=== PATIENT | male | born 1970 | race Caucasian/White ===

== ENCOUNTER 2022-01-07 18:11 | Emergency (ER) | payer MEDICARE, MEDICAID, SELFPAY ==
--- NOTE | ~2022-01-07 | CT_ITS ---
EXAMINATION: CT abdomen pelvis wo con DATE: 01/07/2022 20:58 INDICATION: hematuria TECHNIQUE: Computed tomography (CT) of the abdomen and pelvis was performed without intravenous contr ast. Automated exposure control and iterative reconstruction technique were employed. The dose-length product was 700.08 mGy-cm. COMPARISON: None. FINDINGS: Lower thorax: Coronary artery calcifications. Bibasilar scarring. Liver: Normal. Biliary/Gallbladder: Partially collapsed gallbladder. No bile duct dilation. Pancreas: No mass or duct dilation. Spleen: Normal. Adrenals:No mass. Kidneys: No mass, stone, or hydronephrosis. Bilateral perinephric stranding as can be seen with medic al renal disease. GI tract: No small or large bowel dilation. Normal appendix. Mesentery/Peritoneum: No ascites, mass, or free air. Retroperitoneum: No mass. Atherosclerotic abdominal aortic and/or arterial calcifications. Pelvis: Marked distention of the urinary bladder. Ill-defined frond-like soft tissue density projecti ng off the posterior nondependent bladder wall near the dome. Lobular hyperdense material in the depe ndent bladder. No abnormal calcification. Soft Tissues: Soft tissues and body wall unremarkable. Bones: No acute osseous finding. IMPRESSION: Question of a bladder wall mass, recommend referral for nonemergent but timely cystoscopy. Marked kostas dder distention. Hyperdense bladder debris likely representing hemorrhage. Reviewed, dictated and finalized at location K. IMPRESSION: Question of a bladder wall mass, recommend referral for nonemergent but timely cystoscopy. Marked bladder distention. Hyperdense bladder debris likely represe nting hemorrhage.
[2022-01-07 18:32] VITALS: BP 123/89; PULSE 105; RESP 18; TEMP 36.4; O2SAT 97
[2022-01-07 18:37] VITALS: BP 123/89; PULSE 105; RESP 18; TEMP 36.4; O2SAT 97
[2022-01-07 20:10] LABS: Hematocrit 20.1 % (40.0-54.0); Mean Corpuscular HGB Conc 34.3 g/dL (32.0-36.0); Mean Corpuscular Volume 96.2 fL (78.0-102.0); Platelet Count Result 213 K/mm3 (150-420); Red Blood Count 2.09 M/mm3 (4.70-6.10); Red Cell Distribution Width 13.2 % (11.6-14.4); White Blood Count 7.8 K/mm3 (4.8-10.8)
[2022-01-07 20:11] LABS: Alanine Aminotransferase 25 U/L (16-63); Alkaline Phosphatase 43 U/L (46-116); Anion Gap 7 mmol/L (8-16); Aspartate Amino Transferase 16 U/L (15-37); Bilirubin,Total 0.2 mg/dL (0.00-1.00); Blood Urea Nitrogen 19 mg/dL (7-18); Calcium 8.1 mg/dL (8.5-10.1); Carbon Dioxide 26 mmol/L (21-32); Chloride 100 mmol/L (98-108); Estimated Glomerular Filt Rate > 60; Glucose 206 mg/dL (70-99); Osmolality Calculated 284 mOsm/kg (285-295); Sodium 133 mmol/L (136-145); Total Protein 5.4 g/dL (6.4-8.2)
[2022-01-07 20:18] LABS: Lactic Acid Reflex 2.6 mmol/L (0.4-2.0)
--- NOTE | 2022-01-07 20:24 | PC.NURSE ---
urine taken to lab, red gelled clots
[2022-01-07 20:29] LABS: INR 1.1; Partial Thromboplastin Time 24.4 SEC (23.90-30.70); Prothrombin Time 12.2 Seconds (9.50-12.10)
[2022-01-07 20:32] LABS: Appearance Urine Clear (Clear); Glucose Urine UA Trace (Negative)
[2022-01-07 20:36] LABS: Add Urine Microscopic? YES; Color Urine Dark Red (Yellow)
[2022-01-07 20:37] LABS: Bilirubin Urine 3+ (Negative); Blood Urine 3+ (Negative); Ketones Urine 2+ (Negative); Leukocyte Esterase Ur 3+ (Negative); Nitrate Urine Positive (Negative); Protein Urine 3+ (Negative); Specific Grav Ur <= 1.005 (1.010-1.020); Urobilinogen Urine >=8.0 mg/dL (0.2-1.0)
[2022-01-07 20:38] LABS: Bacteria Urine 2+ /hpf; RBC Urine >75 /hpf (0-2); Squamous Epithelial Cell Urine None seen /hpf (Few)
[2022-01-07 20:57] LABS: Band Neutrophils Percent 0 % (0-6); Eosinophils Absolute Manual 0.07 K/mm3 (0.02-0.5); Eosinophils Percent Manual 1 % (1-6); Lymphocytes Percent Manual 27 % (18-44); Monocytes Absolute Manual 0.78 K/mm3 (0.1-0.90); Monocytes Percent Manual 10 % (3-9); Neutrophils Absolute Manual 4.75 K/mm3 (1.3-6.7); Neutrophils Percent Manual 61 % (46-73)
[2022-01-07 20:58] LABS: Basophils Absolute Manual 0.07 K/mm3 (0-0.1); Basophils Percent Manual 1 % (0-1); Platelet Estimate Adequate (Adequate)
[2022-01-07 22:08] VITALS: BP 113/68; PULSE 111; RESP 18; TEMP 36.5; O2SAT 96
[2022-01-07] MEDS: SODIUM CHLORIDE 0.9% IV 1,000 ML 999 ML IV CONT (22:19)
[2022-01-07] MEDS: SODIUM CHLORIDE 0.9% IV 250 ML 30 ML IV CONT (22:19)
[2022-01-07 22:55] LABS: Reflex Lactic Acid Yes or No Add Lactic
[2022-01-07 23:03] LABS: Occult Blood Negative (Negative)
--- NOTE | 2022-01-07 23:32 | ED.MALEGU ---
HPI - Male Genitourinary General Chief complaint: Urogenital-Male Stated complaint: AMBULANCE Time Seen by Provider: 01/07/22 18:15 Source: patient, EMS and RN notes reviewed Mode of arrival: EMS Limitations: no limitations History of Present Illness HPI Narrative: hematuria Onset (ago): day(s) (2) Duration: constant Severity: mild Severity scale (1-10): 1 Quality: aching and dull Relieving factors: none Exacerbating factors: none Associated symptoms: Reports blood in urine Related Data Home Medications Medication Instructions Recorded Confirmed 0.9 % sodium chloride (phenol) 1 tablet BID 01/07/22 01/07/22 Eliquis 5 mg BID 01/07/22 01/07/22 Fish Oil 1,000 mg DAILY 01/07/22 01/07/22 Januvia 100 mg DAILY 01/07/22 01/07/22 allopurinol 100 mg DAILY 01/07/22 01/07/22 benztropine 0.5 mg HS 01/07/22 01/07/22 clonazepam 0.25 mg BID 01/07/22 01/07/22 divalproex 750 mg DAILY 01/07/22 01/07/22 famotidine 20 mg BID 01/07/22 01/07/22 glipizide 20 mg DAILY 01/07/22 01/07/22 metformin 1,000 mg BID 01/07/22 01/07/22 naproxen 220 mg BID 01/07/22 01/07/22 paroxetine HCl 20 mg HS 01/07/22 01/07/22 risperidone 4 mg HS 01/07/22 01/07/22 Allergies Allergy/AdvReac Type Severity Reaction Status Date / Time haloperidol [From Haldol] AdvReac Depression Verified 01/07/22 18:22 Review of Systems Review of Systems: All systems reviewed & are unremarkable except as noted in HPI and below Constitutional: Constitutional: Reports no additional constitutional complaints Eyes: Eyes: Reports no additional eye complaints ENT: Reports system reviewed and no additional complaints, except as documented Cardiovascular: Cardiovascular: Reports no additional cardiovascular complaints Respiratory: Respiratory: Reports no additional respiratory complaints Gastrointestinal: Gastrointestinal: Reports no additional gastrointestinal complaints Genitourinary: Genitourinary: Reports hematuria Musculoskeletal: Musculoskeletal: Reports no additional musculoskeletal complaints Integumentary/Breasts: Skin/Breast: Reports system reviewed and no additional complaints, except as docu Neurologic: Reports system reviewed and no additional complaints, except as documented Psychiatric: Psychiatric: Reports no additional psychiatric complaints Endocrine: Endocrine: Reports no additional endocrine complaints Hematologic/Lymphatic: Hematologic/Lymphatic: Reports no additional hematologic/lymphatic complaints Allergic/Immunologic: Allergic/Immunologic: Reports no additional allergic/immunologic complaints PMFSH Past Medical History Medical History Hematuria due to acute cystitis Urinary tract infection Exam Const: General: healthy appearing, no acute distress and well nourished Nutritional Appearance: well nourished Orientation/consciousness: patient oriented x3 Limitations: no limitations HENMT: Head: normal to inspection Ears: external ears normal, TM's normal bilaterally and EAC's normal Face/Nose/Sinus: Normal external nose present, Normal nares present, normal facial exam and sinuses nontender Face and sinus: normal facial exam and sinuses nontender Mouth: Yes Normal oral and palatal mucosa present and Yes moist mucous membranes Teeth and gingiva: dentition normal Throat: posterior oropharynx normal Eyes: Conjunctivae: conjunctivae normal Pupils: Equal, round and reactive pupils present EOM: EOMs intact bilaterally Neck: Neck: normal visual inspection, no lymphadenopathy and no meningeal signs Chest: Chest palpation & inspection: normal inspection of the chest Resp: Effort & Inspection: normal respiratory effort Auscultation: clear to auscultation bilaterally Cardio: Rate: regular rate Rhythm: regular rhythm GI: GI Palp: Yes Soft to palpation and No Tenderness to palpation present (GI) Auscultation: normal bowel sounds : General: Yes bladder normal to palpation and Yes no
[2022-01-07 23:44] VITALS: BP 116/72; PULSE 88; RESP 18; TEMP 36.6; O2SAT 96
[2022-01-07 23:45] LABS: Hematocrit 25.5 % (40.0-54.0); Hemoglobin 8.7 g/dL (14.0-18.0)
[2022-01-07 23:57] LABS: Lactic Acid 2.5 mmol/L (0.4-2.0)
[2022-01-08 00:08] LABS: SARS-CoV-2 Ag Negative (Negative)
--- NOTE | 2022-01-08 00:43 | PC.NURSE ---
Nael accepted as consult, Waiting for Dr Azevedo to return
[2022-01-08 01:33] VITALS: BP 110/66; PULSE 97; RESP 18; O2SAT 94
--- NOTE | 2022-01-08 02:46 | PC.NURSE ---
RN returned to room to find pt back dressed in street clothes, he was warned that will have to change again when he gets to [place].
[2022-01-08 02:47] VITALS: BP 122/70; PULSE 88; RESP 18; O2SAT 97
--- NOTE | 2022-01-08 02:54 | PC.NURSE ---
Pt out via [facility]
== END 2022-01-08 02:55 | disposition short-term general hospital (02) ==
PROVIDERS: Emergency Provider Emergency Medicine
DX: N30.01 Acute cystitis with hematuria (principal); Z79.84 Long term (current) use of oral hypoglycemic drugs; Z20.822 Contact with and (suspected) exposure to COVID-19
CPT/HCPCS: 36415; 36430; 74176; 80053; 81001; 83605; 85014; 85018; 85025; 85610; 85730; 86850; 86900; 86901; 86920; 87426; 96360; 99285; C9803; J7030; J7050; P9016

== ENCOUNTER 2022-01-08 05:01 | Inpatient (IN) | payer MEDICARE, MEDICAID, SELFPAY ==
[2022-01-08] VITALS (15 sets, daily range): BP systolic 96–149; BP diastolic 62–87; PULSE 72–103; RESP 12–18; TEMP 36.1–37.1; O2SAT 92–100; BMI 31.1
--- NOTE | ~2022-01-08 | US_ITS ---
EXAMINATION: US venous doppler [facility] DATE: 01/10/2022 11:06 INDICATION: Deep venous thrombosis. TECHNIQUE: Grayscale ultrasound images without and with compression and Doppler ultrasound images of the bilateral lower extremity veins were obtained. COMPARISON: None. FINDINGS: The visualized portions of right common femoral vein, profunda (deep) femoral vein, femoral vein, pop liteal vein, posterior tibial veins, peroneal veins and greater saphenous vein outflow are patent. The visualized portions of left common femoral vein, profunda femoral vein, femoral vein, popliteal v ein, posterior tibial veins, peroneal veins and greater saphenous vein outflow are patent. IMPRESSION: 1. No deep venous thrombosis in either lower limb. Reviewed, dictated and finalized at location A.
--- NOTE | ~2022-01-08 | US_ITS ---
EXAMINATION: US retroperitoneal comp DATE: 01/09/2022 17:58 INDICATION: Hematuria. Bladder mass on CT. TECHNIQUE: 1. Multiple grayscale and color Doppler images of the kidneys were obtained. 2. Multiple grayscale and pulsed Doppler images of the aorta and renal arteries were obtained. COMPARISON: CT dated 01/07/2022 FINDINGS: Kidneys: The right kidney measures 12.1 x 5.3 x 6.2 cm. The left kidney measures 11.8 x 5.3 x 5.9 cm. The kidn eys demonstrate normal echogenicity. There is no hydronephrosis in either kidney. No stones identifi ed. Small amount of shadowing gas is seen in the nondependent bladder. There is a 2.6 x 1.9 cm echoge aditya mass with some surrounding hypoechoic sludge at the posterior base of the bladder. Renal arteries/vascular: The aorta peak systolic velocity is 75 cm/s. The right renal artery peak systolic velocity is 88 cm/s in the proximal segment, 84 cm/s in the mid segment, and 92 cm/s in the distal segment. The left jayna al artery peak systolic velocity is 117 cm/s in the proximal segment, 117 cm/s in the mid segment, an d 104 cm/s in the distal segment. IMPRESSION: 1. Normal kidneys with no hydronephrosis. 2. No Doppler evidence of renal artery stenosis. 0.3. 2.6 x 1.9 cm echogenic mass in the dependent bl adder which appears smaller than on the prior CT post interval cystoscopy and biopsy this could repre sent either residual mass concerning for neoplasm or postbiopsy clot. Correlate with results from kostas dder biopsy. Reviewed, dictated and finalized at location A. IMPRESSION: 1. Normal kidneys with no hydronephrosis. 2. No Doppler evidence of renal artery stenosis. 0.3. 2.6 x 1.9 cm echogenic ma ss in the dependent bladder which appears smaller than on the prior CT post int erval cystoscopy and biopsy this could represent either residual mass concernin g for neoplasm or postbiopsy clot. Correlate with results from bladder biopsy.
--- NOTE | ~2022-01-08 | US_ITS ---
EXAMINATION: US retroperitoneal comp DATE: 01/09/2022 17:58 INDICATION: Hematuria. Bladder mass on CT. TECHNIQUE: 1. Multiple grayscale and color Doppler images of the kidneys were obtained. 2. Multiple grayscale and pulsed Doppler images of the aorta and renal arteries were obtained. COMPARISON: CT dated 01/07/2022 FINDINGS: Kidneys: The right kidney measures 12.1 x 5.3 x 6.2 cm. The left kidney measures 11.8 x 5.3 x 5.9 cm. The kidn eys demonstrate normal echogenicity. There is no hydronephrosis in either kidney. No stones identifie d. Small amount of shadowing gas is seen in the nondependent bladder. There is a 2.6 x 1.9 cm echogen ic mass with some surrounding hypoechoic sludge at the posterior base of the bladder. Renal arteries/vascular: The aorta peak systolic velocity is 75 cm/s. The right renal artery peak systolic velocity is 88 cm/s in the proximal segment, 84 cm/s in the mid segment, and 92 cm/s in the distal segment. The left jayna al artery peak systolic velocity is 117 cm/s in the proximal segment, 117 cm/s in the mid segment, an d 104 cm/s in the distal segment. IMPRESSION: 1. Normal kidneys with no hydronephrosis. 2. No Doppler evidence of renal artery stenosis. 0.3. 2.6 x 1.9 cm echogenic mass in the dependent bl adder which appears smaller than on the prior CT post interval cystoscopy and biopsy this could repre sent either residual mass concerning for neoplasm or postbiopsy clot. Correlate with results from kostas dder biopsy. Reviewed, dictated and finalized at location A. IMPRESSION: 1. Normal kidneys with no hydronephrosis. 2. No Doppler evidence of renal artery stenosis. 0.3. 2.6 x 1.9 cm echogenic ma ss in the dependent bladder which appears smaller than on the prior CT post int erval cystoscopy and biopsy this could represent either residual mass concernin g for neoplasm or postbiopsy clot. Correlate with results from bladder biopsy.
--- NOTE | ~2022-01-08 | CT_ITS ---
EXAMINATION: CTA chest PE protocol DATE: 01/10/2022 10:38 INDICATION: Tachycardia. Elevated d-dimer. TECHNIQUE: Computed tomography (CT) pulmonary angiogram of the chest was performed with 100 mL Omnipa que-350 intravenous contrast. Additional 3D reconstructions utilizing coronal maximum intensity proje ction (MIP) were performed. The dose-length product was 544.90 mGy-cm. COMPARISON: None FINDINGS: Good but suboptimal contrast opacification of the pulmonary arteries. There is mild streak artifact f rom dense contrast in the superior vena cava and right atrium. Mild to moderate scattered respiratory motion artifact which mildly limits evaluation in some of the smaller segmental and subsegmental pul monary arteries. No pulmonary embolism. No pneumonia or other pulmonary infiltrates, pulmonary edema, pleural effusion or pneumothorax. Heart size is normal. Atherosclerotic coronary artery calcificatio n. No pericardial effusion. Thoracic aorta is normal in caliber with no dissection. No pathologically enlarged thoracic lymphadenopathy. Visualized upper abdomen is unremarkable. Mild thoracic spondylos is. IMPRESSION: 1. No pulmonary embolism or other acute cardiopulmonary disease. Reviewed, dictated and finalized at location A.
--- NOTE | 2022-01-08 03:30 | ADMGEN ---
This patient, Luis Carballo, was admitted to IMU Room 207-01. Patient/family oriented to hospital policies and general routines including ID bracelet, bed and alarms, visiting hours, pain management, procedures, bathroom and other care routines, personal items, smoking policy, room service/diet, and visiting hours. Information on how to activate the Rapid Response Team has been discussed. Patient/Family are encouraged to report perceived risks to care and to ask questions if they do not understand what they are told or what they should do.
--- NOTE | 2022-01-08 04:39 | PM.IMHP ---
H&P: HPI History of Present Illness Date/Time: 01/08/22 04:39 Chief Complaint: Bloody urine Narrative: 51-year-old male with a past medical history of schizoaffective disorder, seizure disorder, GERD, type 2 diabetes mellitus, chronic hyponatremia and lymphoma in remission since 2019 who presented to the ER at [facility] due to gross hematuria. The patient reports that 3 days ago he began having hematuria. He has been passing some clots but has still been able to urinate. He reports that the blood is just getting everywhere. He denies any dysuria. 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 He denies any lightheadedness, dizziness or shortness of breath. The patient is alert oriented x3 but is a poor historian regarding his medical history and some recent events. He is noted to be wheezing significantly on exam but states that he does this all the time. He still smokes a pack of cigarettes per day and has done so for 35 years. He denies any cough or congestion but while I was in the room the patient did have a couple of episodes of shallow coughing that was nonproductive. Review of Systems Review of Systems: 12 systems were reviewed with pertinent positives and negatives per HPI. Except as documented in the HPI, all other systems were reviewed and are negative. [facility] Past Medical History Medical History (Updated 01/08/22 @ 05:20 by Millie Azevedo DO) Continuous tobacco abuse COPD (chronic obstructive pulmonary disease) GERD (gastroesophageal reflux disease) Lymphoma (~2019) Treated at [facility] Schizoaffective disorder Seizure disorder Type 2 diabetes mellitus Surgical History Surgical History (Updated 01/08/22 @ 05:19 by Millie Azevedo DO) Surgical history unknown Family History Family History Grandparent Heart attack CKD (chronic kidney disease) Diabetes mellitus Social History Social History (Updated 01/08/22 @ 05:12 by Millie Azevedo DO) Social History: The patient reports that he has lived at a retirement but he cannot report how long he has been there. He states that he is not live there very long. He still smokes 1 pack of cigarettes per day. He used to drink what sounds like a moderate amount or at least a couple of drinks nightly. He has not drank alcohol since he moved to the retirement. He used to smoke marijuana but does not do so since he moved to the retirement. Code status: Full code Surrogate decision maker: Mother Smoking packs per day: 1 Smoking cigarettes per day: 20.0 Years smoked: 35 Smoking pack-years: 35.00 Smoking status: Current every day smoker Alcohol intake: former Substance use: former Substance use type: marijuana Spiritual care concerns: No Has the Lack of Transportation Kept You From Medical Appointments or From Getting Medications?: No Within the Past 12 Months, Were You Worried Whether Your Food Would Run Out Before You Got Money to Buy More?: Never True What is Your Housing Situation Today?: I Have Housing Are You Worried That in the Next 2 Months, You May Not Have Your Own Housing to Live In?: No Do You Have Trouble Paying Your Heating Or Electricity Bill?: No Do You Have Trouble Paying For Medicines?: No Are You Currently Unemployed and Looking for Work?: No Highest Level of Education Completed: Grade School Do You Have Trouble With Childcare or the Care of a Family Member?: No Meds Home Medications and Allergies Home Medications Medication Instructions Recorded Confirmed Type allopurinol 100 mg tablet 100 mg PO DAILY 01/07/22 01/08/22 History apixaban 5 mg tablet (Eliquis) 5 mg BID 01/07/22 01/08/22 History benztropine 0.5 mg tablet 0.5 mg PO QHS 01/07/22 01/08/22 History clonazepam 0.5 mg tablet 0.25 mg PO QAM 01/07/22 01/08/22 History divalproex 250 mg tablet,delaye
[2022-01-08] MEDS: SODIUM CHLORIDE 0.9% IV 1,000 ML 999 ML IV CONT ×2 (05:01→06:17)
[2022-01-08 06:10] LABS: Add Urine Microscopic? YES; Appearance Urine Turbid (Clear); Bilirubin Urine Negative (Negative); Blood Urine 2+ (Negative); Color Urine Red (Yellow); Glucose Urine UA 1+ mg/dL (Negative); Ketones Urine Negative (Negative); Leukocyte Esterase Ur Negative LEU/UL (Negative); Nitrate Urine Negative (Negative); Protein Urine 2+ mg/dL (Negative); RBC Urine >75 /hpf (0-2); Specific Grav Ur 1.013 (1.001-1.035); Urobilinogen Urine Negative mg/dL (<2.0); WBC Urine >75 /hpf
[2022-01-08] MEDS: SODIUM CHLORIDE 0.45% 1,000 ML 100 ML IV CONT ×2 (06:19→20:42)
[2022-01-08 06:27] LABS: Glucose Point of Care 141 mg/dl (65-105)
[2022-01-08 08:02] LABS: Hematocrit 25.8 % (42.0-52.0); Hemoglobin 8.3 g/dL (14.0-18.0); Mean Corpuscular HGB Conc 32.2 g/dl (32-36); Mean Corpuscular Hemoglobin 31.9 pg (26-34); Mean Corpuscular Volume 99.2 fl (80-100); Mean Platelet Volume 10.1 fl (7.4-10.4); Platelet Count Result 206 k/mm3 (150-375); Red Cell Distribution Width 15.2 % (11.5-14.5); White Blood Count 8.8 K/mm3 (4.5-10.0)
[2022-01-08 08:14] LABS: Lactic Acid Reflex 1.4 mmol/L (0.7-2.0)
[2022-01-08 08:16] LABS: Anion Gap 7 mmol/L (8-16); Blood Urea Nitrogen 14 mg/dL (9-20); Calcium 7.9 mg/dL (8.4-10.2); Carbon Dioxide 23 mmol/L (22-30); Chloride 105 mmol/L (98-107); Estimated CRCL calculation 128 ml/min; Estimated Glomerular Filt Rate > 60; Glucose 135 mg/dL (65-110); Potassium 4.4 mmol/L (3.4-5.0); Sodium 135 mmol/L (137-145)
[2022-01-08] MEDS: metFORMIN HCL 500 MG TABLET 1000 MG PO ×2 (10:03→18:36)
[2022-01-08] MEDS: OMEGA 3 POLYUNSAT FATTY ACIDS 1 GM CAP PO (10:04)
[2022-01-08] MEDS: allopurinoL 100 MG TABLET PO (10:04)
[2022-01-08] MEDS: glipiZIDE XL 5 MG TABCR 20 MG PO (10:04)
[2022-01-08] MEDS: DIVALPROEX SODIUM DR 250 MG TABEC 750 MG PO ×2 (10:05→20:43)
[2022-01-08] MEDS: SODIUM CHLORIDE 1 GM TABLET PO ×2 (10:05→18:36)
[2022-01-08] MEDS: clonazePAM (*CRX) 0.25 MG TABLET PO (10:05)
[2022-01-08] MEDS: FAMOTIDINE 20 MG TABLET PO ×2 (10:05→18:36)
[2022-01-08] MEDS: NICOTINE (*PBKC) 4 MG GUM PO ×2 (10:05→18:36)
--- NOTE | 2022-01-08 11:18 | PCNSR ---
On 01/08/22, the student, Kaiden Peralta, provided care and completed [facility] documentation on this patient. I have reviewed the student's documentation and agree with the findings.
[2022-01-08 12:35] LABS: Glucose Point of Care 176 mg/dl (65-105)
--- NOTE | 2022-01-08 13:15 | WPDURCON ---
Assessment and Plan Assessment and plan (1) Gross hematuria: Code(s): R31.0 - Gross hematuria Status: Acute Assessment and Plan: Obtain consent: Cystoscopy, possible clot evacuation, possible bladder biopsy, possible fulgeration. Keep NPO. Plan to go to the OR this afternoon with Dr. Cervantes to further evaluate mass with concerning low hemoglobin. Urine is clear at the bedside in urinal. Obtain bladder scan, bladder tender and distended on exam. (2) Bladder mass: Code(s): N32.89 - Other specified disorders of bladder Status: Acute Assessment and Plan: Unclear if this is a clot versus mass. Urology Consult Note HPI Date Seen: 01/08/22 Time Seen: 12:45 Requesting Physician: Millie Azevedo DO Primary Care Provider: UNKNOWN,DOCTOR Consult Narrative Reason for consult: Gross Hematuria Narrative: Haris Smith is a 51 year old male with a past medical history of schizoaffective disorder, seizure disorder, GERD, type 2 diabetes mellitus, chronic hyponatremia and lymphoma in remission since 2019 who presented to the ER at [facility] due to gross hematuria yesterday 01/07/22.? The patient states that 3 days ago he started having hematuria.? He has been passing some clots but has still been able to urinate.?His urine at the bedside is yellow and clear in the urinal. THe nurses attempted to bladder scan him, however their bladder scanner isn't properly working. He denies any dysuria, a history of gross hematuria, BPH, retention or kidney stones.? He is on chronic anticoagulation due to history of DVTs when he was under treatment for lymphoma, although no anticoagulants are listed on his medications. His WBC is 8.8 and creatinine is 0.60. His bladder was disteneded and tender on exam today at the bedside. CT scan shows a bladder wall mass and debris possibly representing hemorrhage or clots which was done at [facility] prior to his transfer. Review of Systems Cardiovascular: Cardiovascular: Denies chest pain Respiratory: Respiratory: Reports no additional respiratory complaints Gastrointestinal: Gastrointestinal: Reports abdominal pain, Denies nausea and Denies vomiting Genitourinary: Genitourinary: Reports hematuria, Denies dysuria, Denies flank pain, Reports urinary frequency, Reports urinary hesitancy and Reports urinary urgency [facility] Past Medical History Medical History Continuous tobacco abuse COPD (chronic obstructive pulmonary disease) GERD (gastroesophageal reflux disease) Lymphoma (~2020) Treated at [facility] Schizoaffective disorder Seizure disorder Type 2 diabetes mellitus Surgical History Surgical History Surgical history unknown Family History Family History Grandparent Heart attack CKD (chronic kidney disease) Diabetes mellitus Social History Social History Social History: The patient reports that he has lived at a long-term but he cannot report how long he has been there. He states that he is not live there very long. He still smokes 1 pack of cigarettes per day. He used to drink what sounds like a moderate amount or at least a couple of drinks nightly. He has not drank alcohol since he moved to the long-term. He used to smoke marijuana but does not do so since he moved to the long-term. Code status: Full code Surrogate decision maker: Mother Smoking packs per day: 1 Smoking cigarettes per day: 20.0 Years smoked: 35 Smoking pack-years: 35.00 Smoking status: Current every day smoker Alcohol intake: former Substance use: former Substance use type: marijuana Spiritual care concerns: No Has the Lack of Transportation Kept You From Medical Appointments or From Getting Medicati
--- NOTE | 2022-01-08 14:10 | WPDHPUPDATE1 ---
History and Physical Update Update Date/Time: 01/08/22 14:10 History and Physical has been reviewed, including an updated exam of the patient. There are NO changes in the patient's condition. Risks, benefits, and alternatives have been discussed and questions answered. Patient agrees to proceed with procedure.
--- NOTE | 2022-01-08 14:32 | WPDANESEPPF ---
Anes - Initial Pre Proc Eval Procedure: Operation Date: 01/08/22 16:15 Proposed Procedures p Cystoscopy, Possible Evacuation Bladder Clots, Possible Bladder Biopsy, Possible Fulguration - Ervin Cervantes MD Date/Time: 01/08/22 14:32 Surgeon: Millie Azevedo DO Pre Op Diagnosis: Gross hematuria, bladder mass, anemia Patient Data Age: 51 Gender: M Height: 1.68 m Weight: 87.5 kg Last Vital Signs Temp 98.0 F 01/08/22 12:00 Pulse 99 01/08/22 12:00 Resp 12 01/08/22 12:00 BP 116/62 01/08/22 12:00 Pulse Ox 97 01/08/22 12:00 O2 Del Method Room Air 01/08/22 08:00 Allergies Allergy/AdvReac Type Severity Reaction Status Date / Time haloperidol [From Haldol] AdvReac Depression Verified 01/07/22 18:22 Home Medications Medication Instructions Recorded Confirmed Type allopurinol 100 mg tablet 100 mg PO DAILY 01/07/22 01/08/22 History apixaban 5 mg tablet (Eliquis) 5 mg BID 01/07/22 01/08/22 History benztropine 0.5 mg tablet 0.5 mg PO QHS 01/07/22 01/08/22 History clonazepam 0.5 mg tablet 0.25 mg PO QAM 01/07/22 01/08/22 History divalproex 250 mg tablet,delayed 750 mg PO Q12H 01/07/22 01/08/22 History release famotidine 20 mg tablet 20 mg PO BID 01/07/22 01/08/22 History glipizide 10 mg tablet, extended 20 mg PO DAILY 01/07/22 01/08/22 History release 24 hr metformin 1,000 mg tablet 1,000 mg PO BID 01/07/22 01/08/22 History omega-3 fatty acids-fish oil 684 1 cap PO DAILY 01/07/22 01/08/22 History mg-1,200 mg capsule,delayed release paroxetine HCl 20 mg tablet 20 mg PO QHS 01/07/22 01/08/22 History risperidone 4 mg tablet 4 mg PO HS 01/07/22 01/08/22 History sitagliptin 100 mg tablet (Januvia) 100 mg PO DAILY 01/07/22 01/08/22 History sodium chloride 1 gram tablet 1,000 mg PO BID 01/07/22 01/08/22 History clonazepam 0.5 mg disintegrating 0.5 mg PO 1600 01/08/22 01/08/22 History tablet Laboratory Tests 01/08/22 01/08/22 01/08/22 05:35 06:23 07:39 WBC 8.8 K/mm3 K/mm3 (4.5-10.0) RBC 2.60 M/mm3 L M/mm3 (4.6-6.20) Hgb 8.3 g/dL L g/dL (14.0-18.0) Hct 25.8 % L % (42.0-52.0) MCV 99.2 fl fl (80-100) MCH 31.9 pg pg (26-34) MCHC 32.2 g/dl g/dl (32-36) RDW 15.2 % H % (11.5-14.5) Plt Count 206 k/mm3 k/mm3 (150-375) MPV 10.1 fl fl (7.4-10.4) Sodium Potassium Chloride Carbon Dioxide Anion Gap BUN Creatinine Estim Creat Clear Calc Estimated GFR Glucose POC Capillary Glucose 141 mg/dl H mg/dl (65-105) Lactic Acid Calcium Urine Color Red H (Yellow) Urine Appearance Turbid H (Clear) Urine pH 7.0 (5.0-9.0) Ur Specific [place] 1.013 (1.001-1.035) Urine Protein 2+ mg/dL H mg/dL (Negative) Urine Glucose (UA) 1+ mg/dL H mg/dL (Negative) Urine Ketones Negative mg/dL mg/dL (Negative) Ur Blood (Man) 2+ H (Negative) Urine Nitrate Negative (Negative) Urine Bilirubin Negative (Negative) Urine Urobilinogen Negative mg/dL mg/dL (<2.0) Leukocyte Esterase Rfl Negative FIDEL/UL FIDEL/UL (Negative) Urine RBC >75 /hpf H /hpf (0-2) Urine WBC >75 /hpf H /hpf 01/08/22 01/08/22 01/08/22 07:39 07:39 12:29 WBC RBC Hgb Hct MCV MCH MCHC RDW Plt Count MPV Sodium 135 mmol/L L mmol/L (137-145) Potassium 4.4 mmol/L mmol/L (3.4-5.0) Chloride 105 mmol/L mmol/L (98-107) Carbon Dioxide 23 mmol/L mmol/L (22-30) Anion Gap 7 mmol/L L mmol/L (8-16) BUN 14 mg/dL mg/dL (9-20)
[2022-01-08] MEDS: LACTATED RINGERS 1,000 ML 30 ML IV CONT (14:52)
[2022-01-08] MEDS: ceFAZolin 2 GM/D5W 50 ML 2 GM/50 ML BAG IVPB (15:45)
[2022-01-08] MEDS: LIDOCAINE HCL 2% GEL UROJET 10 ML PKG MUCOUS MEM (16:04)
--- NOTE | 2022-01-08 16:15 | W.PM.PROC2 ---
Procedure Note - Detailed Date of Procedure 01/08/22 Pre-op Diagnosis Gross hematuria, bladder mass, anemia Post-op Diagnosis Same Procedure Performed Cystoscopy with bladder biopsy and fulguration Surgeon Ervin Cervantes MD Anesthesia General Description of Procedure Patient is taken to the operative suite correctly identified. Once anesthesia was obtained was placed in dorsal lithotomy position and prepped and draped usual sterile fashion. Twenty-two Spanish scope was inserted the bladder direct vision. There was no strictures or obstructing prostate. Upon entering the bladder the bladder is inspected entirety. There was no clots noted at this time. There are no papillary goes. He has this unusual redness along the posterior wall. It almost has the appearance of a prior catheter although patient did not have one. Cold cup biopsy was used to biopsy this area. We then fulgurated the base. There was good hemostasis at termination procedure. 2% viscous lidocaine was inserted urethra patient is taken recovery stable condition. Drains No Packing No Pathology Yes Complications No immediate complications Condition Stable Disposition PACU
[2022-01-08 17:02] LABS: Glucose Point of Care 87 mg/dl (65-105)
[2022-01-08] MEDS: clonazePAM (*CRX) 0.5 MG TABLET PO (18:36)
[2022-01-08 18:46] LABS: Glucose Point of Care 115 mg/dl (65-105)
--- NOTE | 2022-01-08 19:26 | PM.IMPN ---
Progress Note: A&P Assessment and Plan (1) Bladder mass: Code(s): N32.89 - Other specified disorders of bladder Status: Acute Assessment and Plan: Urology has been consulted. Patient is NPO for possible cystoscopy. Eliquis is on hold due to patient's gross hematuria. The patient is still able to urinate. Skinner catheter is not been placed. 01/08/2022 interval history: patient is a 51-year-old male presented with gross hematuria CT scan was abdomen and pelvis showed bladder mass patient is seen by urology service plan is to take the patient to the OR post cystoscopy and possible evaluation tomorrow, patient with history of is schizoaffective Disorder is a poor historian, follow-up after the surgery and further recommendation to follow. (2) Gross hematuria: Code(s): R31.0 - Gross hematuria Status: Acute Assessment and Plan: The patient is still able urinate. The family reports that the patient had prior urethral trauma with a false tract created when he had hospitalization for seizures and a Skinner catheter placement was attempted. Urology was okay with leaving Skinner catheter out. Will monitor urine output closely. Gross hematuria possibly due to UTI and/or bladder mass. Patient received 1 dose of Rocephin in the ER at [place]. Will continue Rocephin. Will await urine cultures and blood cultures. Unfortunately the patient's urine culture was collected after he had already received antibiotics. (3) Urinary tract infection: Code(s): N39.0 - Urinary tract infection, site not specified Status: Acute Assessment and Plan: Rocephin as discussed above. Await urine cultures. (4) Continuous tobacco abuse: Code(s): Z72.0 - Tobacco use Status: Acute Assessment and Plan: The patient is not interested in quitting smoking. He request nicotine gum which has been provided. (5) Type 2 diabetes mellitus with hyperglycemia, without long-term current use of insulin: Code(s): E11.65 - Type 2 diabetes mellitus with hyperglycemia Status: Acute Assessment and Plan: Continue home meds. Sliding scale insulin with Accu-Cheks a.c. HS and hypoglycemia protocol have been ordered. Subjective Date/time seen: 01/08/22 19:26 Bloody urine HPI-Narrative: 51-year-old male with a past medical history of schizoaffective disorder, seizure disorder, GERD, type 2 diabetes mellitus, chronic hyponatremia and lymphoma in remission since 2019 who presented to the ER at [facility] due to gross hematuria.? The patient reports that 3 days ago he began having hematuria.? He has been passing some clots but has still been able to urinate.? He reports that the blood is just getting everywhere.? He denies any dysuria.? He is on chronic anticoagulation due to history of DVTs when he was under treatment for lymphoma.? He denies any lightheadedness, dizziness or shortness of breath.? The patient is alert oriented x3 but is a poor historian regarding his medical history and some recent events.? He is noted to be wheezing significantly on exam but states that he does this all the time.? He still smokes a pack of cigarettes per day and has done so for 35 years.? He denies any cough or congestion but while I was in the room the patient did have a couple of episodes of shallow coughing that was nonproductive. 01/08/2022 interval history: patient is a 51-year-old male presented with gross hematuria CT scan was abdomen and pelvis showed bladder mass patient is seen by urology service plan is to take the patient to the OR post cystoscopy and possible evaluation tomorrow, patient with history of is schizoaffective Disorder is a poor historian, follow-up after the surgery and further recommendation to follow. Review of Systems Cardiovascular: Cardiovascular: Denies chest pain Exam Narrative: Patient is comfortable, NAD HEENT: eyes are clear and none icteric LUNGS: normal re
[2022-01-08 20:37] LABS: Glucose Point of Care 294 mg/dl (65-105)
[2022-01-08] MEDS: risperiDONE 1 MG TABLET 4 MG PO (20:43)
[2022-01-08] MEDS: PARoxetine 20 MG TABLET PO (20:44)
[2022-01-08] MEDS: BENZTROPINE MESYLATE 0.5 MG TABLET PO (20:44)
[2022-01-09] VITALS (13 sets, daily range): BP systolic 109–131; BP diastolic 59–85; PULSE 86–115; RESP 16–20; TEMP 36.3–36.8; O2SAT 94–99
[2022-01-09 05:45] LABS: Hematocrit 24.4 % (42.0-52.0); Hemoglobin 8.2 g/dL (14.0-18.0); Mean Corpuscular HGB Conc 33.6 g/dl (32-36); Mean Corpuscular Hemoglobin 32.2 pg (26-34); Mean Corpuscular Volume 95.7 fl (80-100); Mean Platelet Volume 10.3 fl (7.4-10.4); Platelet Count Result 223 k/mm3 (150-375); Red Blood Count 2.55 M/mm3 (4.6-6.20); White Blood Count 6.6 K/mm3 (4.5-10.0)
[2022-01-09 06:01] LABS: Anion Gap 5 mmol/L (8-16); Blood Urea Nitrogen 13 mg/dL (9-20); Calcium 8.2 mg/dL (8.4-10.2); Carbon Dioxide 22 mmol/L (22-30); Chloride 104 mmol/L (98-107); Estimated CRCL calculation 127 ml/min; Estimated Glomerular Filt Rate > 60; Glucose 195 mg/dL (65-110); Potassium 4.5 mmol/L (3.4-5.0); Sodium 131 mmol/L (137-145)
[2022-01-09] MEDS: SODIUM CHLORIDE 0.45% 1,000 ML 100 ML IV CONT (06:05)
--- NOTE | 2022-01-09 07:55 | WPDANESPN ---
Anes - Prog Note Post-Op Date/Time: 01/09/22 07:55 Cardiovascular status: normal Respiratory status: normal Airway patency: baseline Mental status: baseline Post-Op hydration status: normal Vital Signs: Last Vital Signs Temp 36.8 C 01/09/22 04:00 Pulse 89 01/09/22 05:35 Resp 20 01/09/22 04:00 BP 110/59 L 01/09/22 04:00 Pulse Ox 94 01/09/22 04:00 O2 Del Method Room Air 01/09/22 04:00 O2 Flow Rate 10 01/08/22 16:37 Pain Score (VAS): DARLYN, patient asleep, no nonverbal signs of pain I/O: Intake & Output 01/08/22 01/08/22 01/09/22 15:59 23:59 07:59 Intake Total 1250 1300 Output Total 1475 Balance -225 1300 Laboratory Tests 01/09/22 04:44 01/09/22 04:44 01/08/22 01/08/22 01/08/22 07:39 07:39 07:39 WBC 8.8 RBC 2.60 L Hgb 8.3 L Hct 25.8 L MCV 99.2 MCH 31.9 MCHC 32.2 RDW 15.2 H Plt Count 206 MPV 10.1 Sodium 135 L Potassium 4.4 Chloride 105 Carbon Dioxide 23 Anion Gap 7 L BUN 14 Creatinine 0.60 L Estim Creat Clear Calc 128 Estimated GFR > 60 Glucose 135 H POC Capillary Glucose Lactic Acid 1.4 Calcium 7.9 L 01/08/22 01/08/22 01/08/22 12:29 16:59 18:38 WBC RBC Hgb Hct MCV MCH MCHC RDW Plt Count MPV Sodium Potassium Chloride Carbon Dioxide Anion Gap BUN Creatinine Estim Creat Clear Calc Estimated GFR Glucose POC Capillary Glucose 176 H 87 115 H Lactic Acid Calcium 01/08/22 01/09/22 01/09/22 20:15 04:44 04:44 WBC 6.6 RBC 2.55 L Hgb 8.2 L Hct 24.4 L MCV 95.7 MCH 32.2 MCHC 33.6 RDW 15.0 H Plt Count 223 MPV 10.3 Sodium 131 L Potassium 4.5 Chloride 104 Carbon Dioxide 22 Anion Gap 5 L BUN 13 Creatinine 0.60 L Estim Creat Clear Calc 127 Estimated GFR > 60 Glucose 195 H POC Capillary Glucose 294 H Lactic Acid Calcium 8.2 L Post-procedural complaints: none Patient Feedback: Patient satisfied with anesthetic care.
--- NOTE | 2022-01-09 08:05 | WPDUROPN2 ---
Progress Note: A&P Assessment and Plan (1) Gross hematuria: Code(s): R31.0 - Gross hematuria Status: Acute Assessment and Plan: No clot seen in bladder on cystoscopy. He did not have a typical bladder mass. He did have some erythema along the posterior wall. The tissue was somewhat friable in nature. This was biopsied. His history and clinical findings do not support the significant anemia that he has. May need to look for another source her hospitalist. (2) Bladder mass: Code(s): N32.89 - Other specified disorders of bladder Status: Acute Assessment and Plan: Biopsy taken. Await final path. From urologic standpoint can be discharged home when medically stable an anemia workup completed. Family to call for path results in a week's time. Subjective Subjective Date/Time Seen: 01/09/22 08:05 Post Op day: 1 (Cystoscopy with bladder biopsy and fulguration) Principal diagnosis: Hematuria/anemia Interval history: Patient is resting comfortably at this time. Did not wake him for discussion this morning. Review of Systems Review of Systems: All systems reviewed & are unremarkable except as noted in HPI and below Objective Data Vital Signs Vital Signs: Vital Signs - 24 hr 01/08/22 12:00 01/08/22 14:46 01/08/22 16:21 Temperature 36.7 C 37.1 C 36.2 C L Pulse Rate 99 88 87 Respiratory Rate 12 14 17 Blood Pressure 116/62 111/77 115/85 Pulse Oximetry 97 99 99 Oxygen Delivery Room Air Simple Face Mask Oxygen Flow Rate 10 01/08/22 16:37 01/08/22 16:52 01/08/22 17:07 Temperature Pulse Rate 79 84 88 Respiratory Rate 15 15 16 Blood Pressure 116/84 128/87 125/86 Pulse Oximetry 100 99 95 Oxygen Delivery Simple Face Mask Room Air Room Air Oxygen Flow Rate 10 01/08/22 17:22 01/08/22 17:38 01/08/22 20:00 Temperature 36.1 C L Pulse Rate 86 86 94 Respiratory Rate 18 18 Blood Pressure 111/79 105/73 149/66 H Pulse Oximetry 92 98 99 Oxygen Delivery Room Air Room Air Oxygen Flow Rate 01/08/22 20:00 01/08/22 20:00 01/08/22 22:00 Temperature Pulse Rate 74 72 76 Respiratory Rate 18 Blood Pressure Pulse Oximetry 99 Oxygen Delivery Room Air Oxygen Flow Rate 01/09/22 00:00 01/09/22 00:00 01/09/22 00:00 Temperature 36.7 C Pulse Rate 89 89 92 Respiratory Rate 18 20 Blood Pressure 115/61 Pulse Oximetry 99 98 Oxygen Delivery Room Air Oxygen Flow Rate 01/09/22 01:39 01/09/22 04:00 01/09/22 04:00 Temperature 36.8 C Pulse Rate 88 86 86 Respiratory Rate 20 Blood Pressure 110/59 L Pulse Oximetry 94 Oxygen Delivery Oxygen Flow Rate 01/09/22 04:00 01/09/22 05:35 Temperature Pulse Rate 86 89 Respiratory Rate 20 Blood Pressure Pulse Oximetry 94 Oxygen Delivery Room Air Oxygen Flow Rate Intake/Output Intake/Output: Intake & Output 01/06/22 01/07/22 01/08/22 01/09/22 23:59 23:59 23:59 23:59 Intake Total 1250 1300 Output Total 1475 Balance -225 1300 Meds/Results Medications: Active Medications Generic Name Dose Route Start Last Admin Trade Name Freq PRN Reason Stop Dose Admin Acetaminophen 650 mg 01/08/22 04:32 Acetaminophen 325 Mg Tablet PO Q4H PRN Mild Pain (1-3) or Fever Allopurinol 100 mg 01/08/22 08:00 01/08/22 10:04 Allopurinol 100 Mg Tablet PO 100 mg DAILY@0800 SARAH Administration Benztropine Mesylate 0.5 mg 01/08/22 21:00 01/08/22 20:44 Benztropine Mesylate 0.5 Mg Tablet PO 0.5 mg QHS SARAH Administration Clonazepam 0.25 mg 01/08/22 09:00 01/08/22 10:05 Clonazepam (*Crx) 0.25 Mg Tablet PO 0.25 mg QAM SARAH Administration Clonazepam 0.5 mg 01/08/22 16:00 01/08/22 18:36 Clonazepam (*Crx) 0.5 Mg Tablet PO 0.5 mg 1600 SARAH Administration Dextrose 12.5 gm 01/08/22 19:52 Dextrose 50% 25 Gm/50 Ml Syringe IV PUSH PRN PRN Hypoglycemia Protocol Divalproex Sodium 750 mg 01/08/22 09:00 01/08
[2022-01-09 08:48] LABS: Glucose Point of Care 193 mg/dl (65-105)
[2022-01-09] MEDS: SODIUM CHLORIDE 1 GM TABLET PO ×2 (09:26→18:10)
[2022-01-09] MEDS: allopurinoL 100 MG TABLET PO (09:26)
[2022-01-09] MEDS: OMEGA 3 POLYUNSAT FATTY ACIDS 1 GM CAP PO (09:26)
[2022-01-09] MEDS: metFORMIN HCL 500 MG TABLET 1000 MG PO ×2 (09:26→18:10)
[2022-01-09] MEDS: FAMOTIDINE 20 MG TABLET PO ×2 (09:26→18:09)
[2022-01-09] MEDS: glipiZIDE XL 5 MG TABCR 20 MG PO (09:26)
[2022-01-09] MEDS: clonazePAM (*CRX) 0.25 MG TABLET PO (09:26)
[2022-01-09] MEDS: DIVALPROEX SODIUM DR 250 MG TABEC 750 MG PO ×2 (09:27→20:41)
[2022-01-09] MEDS: NICOTINE (*PBKC) 4 MG GUM PO (09:29)
--- NOTE | 2022-01-09 10:38 | PM.IMPN ---
Progress Note: A&P Assessment and Plan (1) Gross hematuria: Code(s): R31.0 - Gross hematuria Status: Acute Assessment and Plan: On apixaban at home due to DVT during treatment for lymphoma. Hematuria may be related to apixaban use. Will continue to hold apixaban for now. Urine culture pending and ceftriaxone has been continued. -Renal ultrasound -Renal artery duplex -Hold apixaban (2) Tachycardia: Code(s): R00.0 - Tachycardia, unspecified Status: Acute Assessment and Plan: Unclear if this is new or chronic but patient did have HR in 80s before nursing reporting persistent heart rate above 100. Patient is asymptomatic. Adequate oxygenation on room air. Hx of DVT during treatment for lymphoma. Has had gross hematuria. -Repeat H/H -If H/H not significantly decreased, will check d dimer due to cancer diagnosis within the past few years and hx of DVT now off anticoagulation due to bleeding (3) Bladder mass: Code(s): N32.89 - Other specified disorders of bladder Status: Acute Assessment and Plan: Initially seen on CT abdomen pelvis in the emergency department. Had cystoscopy with urology, which did not show a mass but the tissue was friable. Biopsy results are pending. (4) Urinary tract infection: Code(s): N39.0 - Urinary tract infection, site not specified Status: Inactive Assessment and Plan: Rocephin as discussed above. Await urine cultures. (5) Continuous tobacco abuse: Code(s): Z72.0 - Tobacco use Status: Acute Assessment and Plan: The patient is not interested in quitting smoking. He request nicotine gum which has been provided. (6) Type 2 diabetes mellitus with hyperglycemia, without long-term current use of insulin: Code(s): E11.65 - Type 2 diabetes mellitus with hyperglycemia Status: Acute Assessment and Plan: Continue home meds. Sliding scale insulin with Accu-Cheks a.c. HS and hypoglycemia protocol have been ordered. Subjective Date/time seen: 01/09/22 16:38 Patient seen and examined this morning with no family at bedside. Patient says he feels great. Denies having any abdominal pain or blood in his urine. Review of Systems Gastrointestinal: Gastrointestinal: Denies abdominal pain Genitourinary: Genitourinary: Denies hematuria Exam Narrative: GENERAL: NAD, cooperative HEENT: Normocephalic, atraumatic, anicteric, nares clear, oropharynx moist and clear, dentition ok NECK: Supple CV: Tachycardia, regular rhythm RESP: CTAB, Normal work of breathing. Abdomen: Soft, non-tender, non-distended EXTREMITIES: Warm and well perfused, no clubbing, cyanosis, or edema. SKIN: warm, dry and intact. NEURO: CN 2-12 grossly intact. Objective Data Vital Signs Vital Signs: Vital Signs - 24 hr 01/08/22 16:52 01/08/22 17:07 01/08/22 17:22 Temperature Pulse Rate 84 88 86 Respiratory Rate 15 16 18 Blood Pressure 128/87 125/86 111/79 Pulse Oximetry 99 95 92 Oxygen Delivery Room Air Room Air Room Air 01/08/22 17:38 01/08/22 20:00 01/08/22 20:00 Temperature 36.1 C L Pulse Rate 86 94 74 Respiratory Rate 18 18 Blood Pressure 105/73 149/66 H Pulse Oximetry 98 99 99 Oxygen Delivery Room Air Room Air 01/08/22 20:00 01/08/22 22:00 01/09/22 00:00 Temperature Pulse Rate 72 76 89 Respiratory Rate Blood Pressure Pulse Oximetry Oxygen Delivery 01/09/22 00:00 01/09/22 00:00 01/09/22 01:39 Temperature 36.7 C Pulse Rate 89 92 88 Respiratory Rate 18 20 Blood Pressure 115/61 Pulse Oximetry 99 98 Oxygen Delivery Room Air 01/09/22 04:00 01/09/22 04:00 01/09/22 04:00 Temperature 36.8 C Pulse Rate 86 86 86 Respiratory Rate 20 20 Blood Pressure 110/59 L Pulse Oximetry 94 94 Oxygen Delivery Room Air 01/09/22 05:35 01/09/22 08:00 01/09/22 12:00 Temperature 36.7 C 36.3 C L Pulse Rate 89 10
[2022-01-09 12:20] LABS: Glucose Point of Care 331 mg/dl (65-105)
[2022-01-09] MEDS: INSULIN ASPART (*BKC) 100 UNITS/ML SUB-Q ×2 (12:57→18:09)
[2022-01-09 16:18] LABS: Glucose Point of Care 206 mg/dl (65-105)
[2022-01-09 17:15] LABS: Hematocrit 24.1 % (42.0-52.0); Hemoglobin 8.1 g/dL (14.0-18.0)
[2022-01-09] MEDS: clonazePAM (*CRX) 0.5 MG TABLET PO (18:08)
[2022-01-09 20:18] LABS: Glucose Point of Care 274 mg/dl (65-105)
[2022-01-09] MEDS: BENZTROPINE MESYLATE 0.5 MG TABLET PO (20:41)
[2022-01-09] MEDS: risperiDONE 1 MG TABLET 4 MG PO (20:42)
[2022-01-09] MEDS: PARoxetine 20 MG TABLET PO (20:42)
[2022-01-10] VITALS (9 sets, daily range): BP systolic 95–118; BP diastolic 48–82; PULSE 82–107; RESP 16–20; TEMP 36.4–36.9; O2SAT 96–99
[2022-01-10 05:12] LABS: Hematocrit 26.2 % (42.0-52.0); Hemoglobin 8.8 g/dL (14.0-18.0); Mean Corpuscular HGB Conc 33.6 g/dl (32-36); Mean Corpuscular Hemoglobin 31.8 pg (26-34); Mean Corpuscular Volume 94.6 fl (80-100); Mean Platelet Volume 9.7 fl (7.4-10.4); Platelet Count Result 297 k/mm3 (150-375); Red Blood Count 2.77 M/mm3 (4.6-6.20); Red Cell Distribution Width 14.8 % (11.5-14.5); White Blood Count 10.2 K/mm3 (4.5-10.0)
[2022-01-10 05:27] LABS: D Dimer 1.62 ug/mL (<0.48)
[2022-01-10 05:31] LABS: Anion Gap 8 mmol/L (8-16); Blood Urea Nitrogen 11 mg/dL (9-20); Calcium 9.1 mg/dL (8.4-10.2); Carbon Dioxide 25 mmol/L (22-30); Chloride 102 mmol/L (98-107); Estimated CRCL calculation 110 ml/min; Estimated Glomerular Filt Rate > 60; Glucose 136 mg/dL (65-110); Potassium 4.4 mmol/L (3.4-5.0); Sodium 135 mmol/L (137-145)
[2022-01-10 08:07] LABS: Glucose Point of Care 145 mg/dl (65-105)
[2022-01-10] MEDS: allopurinoL 100 MG TABLET PO (11:42)
[2022-01-10] MEDS: metFORMIN HCL 500 MG TABLET 1000 MG PO ×2 (11:42→16:47)
[2022-01-10] MEDS: SODIUM CHLORIDE 1 GM TABLET PO ×2 (11:42→16:47)
[2022-01-10] MEDS: NICOTINE (*PBKC) 4 MG GUM PO (11:42)
[2022-01-10] MEDS: FAMOTIDINE 20 MG TABLET PO ×2 (11:42→16:47)
[2022-01-10] MEDS: DIVALPROEX SODIUM DR 250 MG TABEC 750 MG PO (11:42)
[2022-01-10] MEDS: OMEGA 3 POLYUNSAT FATTY ACIDS 1 GM CAP PO (11:43)
[2022-01-10] MEDS: glipiZIDE XL 5 MG TABCR 20 MG PO (11:43)
[2022-01-10] MEDS: clonazePAM (*CRX) 0.25 MG TABLET PO (11:44)
[2022-01-10 11:46] LABS: Glucose Point of Care 349 mg/dl (65-105)
[2022-01-10] MEDS: INSULIN ASPART (*BKC) 100 UNITS/ML SUB-Q (11:46)
--- NOTE | 2022-01-10 13:37 | PM.DS ---
DS: Admitting Diagnosis Discharge Date 01/10/2022 Admitting Diagnosis Gross Hematuria, Bladder Mass DS: Discharge Diagnosis Discharge Diagnosis (1) Gross hematuria: Code(s): R31.0 - Gross hematuria Status: Acute Assessment and Plan: On apixaban at home due to DVT during treatment for lymphoma. Hematuria may be related to apixaban use. Will continue to hold apixaban for now. Urine culture pending and ceftriaxone has been continued. -Renal ultrasound -Renal artery duplex -Hold apixaban (2) Tachycardia: Code(s): R00.0 - Tachycardia, unspecified Status: Acute Assessment and Plan: Unclear if this is new or chronic but patient did have HR in 80s before nursing reporting persistent heart rate above 100. Patient is asymptomatic. Adequate oxygenation on room air. Hx of DVT during treatment for lymphoma. Has had gross hematuria. D dimer elevated. CTA chest with no PE and bilateral lower extremity duplex with no DVT. Tachycardia appears to have resolved. (3) Bladder mass: Code(s): N32.89 - Other specified disorders of bladder Status: Acute Assessment and Plan: Initially seen on CT abdomen pelvis in the emergency department. Had cystoscopy with urology, which did not show a mass but the tissue was friable. Biopsy results are pending. (4) Urinary tract infection: Code(s): N39.0 - Urinary tract infection, site not specified Status: Inactive Assessment and Plan: Noted on admission on UA and ceftriaxone was given. Urine culture grew greater than 100,000 CFU/mL of Non-uropathogenic Gram positive organism.. (5) Continuous tobacco abuse: Code(s): Z72.0 - Tobacco use Status: Acute Assessment and Plan: The patient says he likes the nicotine gum and discussed quitting smoking with his mother when she came to visit. Will discharge with nicotine gum. (6) Type 2 diabetes mellitus with hyperglycemia, without long-term current use of insulin: Code(s): E11.65 - Type 2 diabetes mellitus with hyperglycemia Status: Acute Assessment and Plan: Will resume home medications for discharge. DS: Summary Hospital Course Reason for hospitalization: Gross hematuria with concern for a bladder mass. Hospital Course: 51M with a past medical history fo schizoaffective disorder, seizure disorder, gastroesophageal reflux, type 2 diabetes, chronic hyponatremia and lymphoma in remission since 2019, DVT on apixaban who presented to the emergency department at [facility] due to gross hematuria. CT abdomen pelvis showed questionable bladder wall mass, marked bladder distension and hyperdense debris likely representing hemorrhage. Patient was transferred to [facility] and Urology was consulted. Apixaban was stopped and patient underwent cystoscopy with Urology on 01/08/2022. Cystoscopy showed no stricture or obstructing prostate and no clot in the bladder. The bladder wall appeared friable, so biopsy was sent to pathology. Results were pending at the time of discharge. Initial urinalysis was concerning for infection, so ceftriaxone was given. The urine culture grew greater than 100,000 cfu of non-uropathogenic gram positive organisms. Treatment was not continued for discharge. Apixaban was held at discharge and patient was advised to follow up with primary care physician to see when to restart this medication. Time Spent with Patient Time attestation: Total time spent providing and/or coordinating discharge services: Exam Narrative: GENERAL: NAD, sitting in bed chewing gum HEENT: Normocephalic, atraumatic, anicteric, nares clear, oropharynx moist and clear, dentition ok NECK: Supple CV: Regular rate and rhythm RESP: CTAB, Normal work of breathing. EXTREMITIES: Warm and well perfused, no clubbing, cyanosis, or edema. SKIN: warm, dry and intact. NEURO: CN 2-12 grossly intact.
[2022-01-10] MEDS: clonazePAM (*CRX) 0.5 MG TABLET PO (16:47)
== END 2022-01-10 18:24 | disposition home or self-care (01) | DRG 669 ==
PROVIDERS: Family Medicine; Urology; Admitting Provider Internal Medicine; Visit Provider Family Medicine
PROC: 0TCB8ZZ Extirpation of Matter from Bladder, Via Natural or Artificial Opening Endoscopic (ICD-10-PCS; CPT 52001; principal; 2022-01-08 16:15)
DX: N32.89 Other specified disorders of bladder (principal); N39.0 Urinary tract infection, site not specified; F25.9 Schizoaffective disorder, unspecified; R31.0 Gross hematuria; F17.210 Nicotine dependence, cigarettes, uncomplicated; G40.909 Epilepsy, unspecified, not intractable, without status epilepticus; K21.9 Gastro-esophageal reflux disease without esophagitis; J44.9 Chronic obstructive pulmonary disease, unspecified; E11.65 Type 2 diabetes mellitus with hyperglycemia; R00.0 Tachycardia, unspecified; Z79.01 Long term (current) use of anticoagulants; Z79.84 Long term (current) use of oral hypoglycemic drugs; Z85.72 Personal history of non-Hodgkin lymphomas; Z86.718 Personal history of other venous thrombosis and embolism
CPT/HCPCS: 36415; 71275; 76770; 80048; 81001; 82948; 83605; 85014; 85018; 85027; 85380; 87086; 87088; 88305; 93970; 93976; A9270; J0690; J1100; J1815; J2250; J2405; J2704; J3010; J7030; J7120; Q9967

== ENCOUNTER 2022-02-08 15:43 | Outpatient (CLI) | payer MEDICARE, MEDICAID, SELFPAY ==
[2022-02-08 16:05] LABS: Hematocrit 28.2 % (40.0-54.0); Hemoglobin 8.7 g/dL (14.0-18.0); Mean Corpuscular HGB Conc 30.9 g/dL (32.0-36.0); Mean Corpuscular Hemoglobin 26.9 pg (27.0-31.0); Mean Corpuscular Volume 87.3 fL (78.0-102.0); Mean Platelet Volume 9.1 fl (8.7-11.0); Platelet Count Result 439 K/mm3 (150-420); Red Blood Count 3.23 M/mm3 (4.70-6.10); Red Cell Distribution Width 15.3 % (11.6-14.4); White Blood Count 6.7 K/mm3 (4.8-10.8)
[2022-02-08 16:54] LABS: Add Urine Microscopic? YES; Bilirubin Urine Negative (Negative); Blood Urine 3+ (Negative); Color Urine Yellow (Yellow); Glucose Urine UA 3+ (Negative); Ketones Urine Trace (Negative); Leukocyte Esterase Ur Negative (Negative); Nitrate Urine Negative (Negative); Protein Urine Negative (Negative); Urobilinogen Urine 0.2 mg/dL (0.2-1.0)
[2022-02-08 17:01] LABS: Appearance Urine Slightly Cloudy (Clear); Bacteria Urine 1+ /hpf; RBC Urine 21-50 /hpf (0-2); Squamous Epithelial Cell Urine Few /hpf (Few); WBC Urine None seen /hpf (0-3)
[2022-02-08 17:17] LABS: Alanine Aminotransferase 15 U/L (16-63); Albumin Level 3.1 g/dL (3.4-5.0); Alkaline Phosphatase 68 U/L (46-116); Anion Gap 6 mmol/L (8-16); Aspartate Amino Transferase 14 U/L (15-37); Bilirubin,Total 0.1 mg/dL (0.00-1.00); Blood Urea Nitrogen 12 mg/dL (7-18); Calcium 8.5 mg/dL (8.5-10.1); Carbon Dioxide 27 mmol/L (21-32); Chloride 102 mmol/L (98-108); Estimated Glomerular Filt Rate > 60; Glucose 243 mg/dL (70-99); Osmolality Calculated 287 mOsm/kg (285-295); Potassium 5.2 mmol/L (3.5-5.1); Prostate Specific Antigen 0.5 ng/mL (< OR = 4.0); Sodium 135 mmol/L (136-145); Thyroid Stimulating Hormone 1.71 uIU/mL (0.36-3.74); Total Protein 6.5 g/dL (6.4-8.2); Uric Acid 2.5 mg/dL (3.5-7.2)
[2022-02-08 17:36] LABS: Band Neutrophils Percent 0 % (0-6); Basophils Percent Manual 0 % (0-1); Eosinophils Percent Manual 3 % (1-6); Lymphocytes Absolute Manual 1.87 K/mm3 (1.1-4.5); Lymphocytes Percent Manual 28 % (18-44); Monocytes Percent Manual 18 % (3-9); Neutrophils Absolute Manual 3.41 K/mm3 (1.3-6.7); Neutrophils Percent Manual 51 % (46-73); Platelet Estimate Adequate (Adequate); Schistocytes None Seen (NORMAL); Total Cells Counted 100
[2022-02-11 11:23] LABS: Ferritin 20 ng/mL (26-388); Iron 12 ug/dL (65-175); Percent Iron Saturation 3 % (12-57)
[2022-02-13 08:10] LABS: Hemoglobin A1C 8.8 % (<5.7)
== END 2022-02-08 15:44 | disposition home or self-care (01) ==
LOC: CHSLAB 15:47
PROVIDERS: PCP Family Medicine; Visit Provider Family Medicine
DX: M10.9 Gout, unspecified (principal); E11.8 Type 2 diabetes mellitus with unspecified complications; Z12.5 Encounter for screening for malignant neoplasm of prostate; R09.89 Other specified symptoms and signs involving the circulatory and respiratory systems
CPT/HCPCS: 36415; 80053; 81001; 82728; 83036; 83540; 83550; 84153; 84443; 84550; 85025; 86337; G0103

== ENCOUNTER 2022-02-18 11:12 | Outpatient (CLI) | payer MEDICARE, SELFPAY ==
[2022-02-18 11:41] LABS: Appearance Urine Clear (Clear); Bilirubin Urine Negative (Negative); Blood Urine 2+ (Negative); Glucose Urine UA 3+ (Negative); Ketones Urine Trace (Negative); Leukocyte Esterase Ur Negative (Negative); Nitrate Urine Negative (Negative); Protein Urine Negative (Negative); Specific Grav Ur 1.015 (1.010-1.020); Urobilinogen Urine 0.2 mg/dL (0.2-1.0)
[2022-02-18 11:46] LABS: Add Urine Microscopic? YES; Bacteria Urine Trace /hpf; Color Urine Light Yellow (Yellow); Squamous Epithelial Cell Urine Few /hpf (Few); WBC Urine None seen /hpf (0-3)
== END 2022-02-18 11:13 | disposition home or self-care (01) ==
PROVIDERS: PCP Family Medicine; Visit Provider Family Medicine
DX: N39.0 Urinary tract infection, site not specified (principal)
CPT/HCPCS: 81001; 87086; 87088

== ENCOUNTER 2022-02-19 12:27 | Outpatient (CLI) | payer MEDICARE, MEDICAID, SELFPAY ==
--- NOTE | ~2022-02-19 | US_ITS ---
US arterial ankle brachial ind INDICATION: Absent pedal pulses TECHNIQUE: Segmental pressures and plethysmographic and Doppler waveforms of the brachial and lower e xtremity arteries were obtained. COMPARISON: None. FINDINGS: Right and left brachial artery pressures of 114 mm Hg and 109 mm Hg, respectively, are concordant (no rmal difference <= 30 mmHg). The right ankle-brachial index (JIM) is 1.28 (normal >= 0.9-1.0). The right great toe-brachial index (TBI) is 0.96 (normal >= 0.60). The left JIM is 1.18. The left TBI is 0.95. IMPRESSION: 1. Normal bilateral ankle-brachial indices. Reviewed, dictated and finalized at location A. INE WOOD SANDER
== END 2022-02-19 12:28 | disposition home or self-care (01) ==
LOC: CHSIMG 12:29
PROVIDERS: PCP Family Medicine; Visit Provider Family Medicine
DX: R09.89 Other specified symptoms and signs involving the circulatory and respiratory systems (principal)
CPT/HCPCS: 93922

== ENCOUNTER 2022-05-15 08:28 | Outpatient (CLI) | payer MEDICARE, SELFPAY ==
[2022-05-15 08:36] LABS: Hematocrit 35.6 % (40.0-54.0); Hemoglobin 10.8 g/dL (14.0-18.0); Mean Corpuscular HGB Conc 30.3 g/dL (32.0-36.0); Mean Corpuscular Hemoglobin 22.1 pg (27.0-31.0); Mean Platelet Volume 9.3 fl (8.7-11.0); Platelet Count Result 359 K/mm3 (150-420); Red Blood Count 4.88 M/mm3 (4.70-6.10); Red Cell Distribution Width 20.9 % (11.6-14.4); White Blood Count 8.8 K/mm3 (4.8-10.8)
[2022-05-15 08:49] LABS: Band Neutrophils Percent 0 % (0-6); Eosinophils Absolute Manual 0.44 K/mm3 (0.02-0.5); Eosinophils Percent Manual 5 % (1-6); Lymphocytes Absolute Manual 2.72 K/mm3 (1.1-4.5); Lymphocytes Percent Manual 31 % (18-44); Monocytes Absolute Manual 1.32 K/mm3 (0.1-0.90); Monocytes Percent Manual 15 % (3-9); Neutrophils Absolute Manual 4.31 K/mm3 (1.3-6.7); Neutrophils Percent Manual 49 % (46-73); Platelet Estimate Adequate (Adequate); Total Cells Counted 100
[2022-05-15 09:03] LABS: Hemoglobin A1C 10.7 % (<5.7)
[2022-05-15 09:21] LABS: Alanine Aminotransferase 19 U/L (16-63); Albumin Level 3.6 g/dL (3.4-5.0); Alkaline Phosphatase 73 U/L (46-116); Anion Gap 10 mmol/L (8-16); Aspartate Amino Transferase 15 U/L (15-37); Bilirubin,Total 0.3 mg/dL (0.00-1.00); Blood Urea Nitrogen 13 mg/dL (7-18); Calcium 9.1 mg/dL (8.5-10.1); Carbon Dioxide 25 mmol/L (21-32); Chloride 99 mmol/L (98-108); Estimated Glomerular Filt Rate > 60; Glucose 151 mg/dL (70-99); Osmolality Calculated 281 mOsm/kg (285-295); Potassium 5.3 mmol/L (3.5-5.1); Sodium 134 mmol/L (136-145); Total Protein 6.9 g/dL (6.4-8.2)
[2022-05-15 14:38] LABS: Ferritin 17 ng/mL (26-388); Iron 33 ug/dL (65-175); Percent Iron Saturation 7 % (12-57)
== END 2022-05-15 08:29 | disposition home or self-care (01) ==
LOC: CHSLAB 08:29
PROVIDERS: PCP Family Medicine; Visit Provider Family Medicine
DX: E11.8 Type 2 diabetes mellitus with unspecified complications (principal); D50.9 Iron deficiency anemia, unspecified
CPT/HCPCS: 36415; 80053; 82728; 83036; 83540; 83550; 85025

== ENCOUNTER 2022-10-08 06:58 | Outpatient (CLI) | payer MEDICARE, SELFPAY ==
[2022-10-08 07:20] LABS: Hematocrit 35.7 % (40.0-54.0); Hemoglobin 11.5 g/dL (14.0-18.0); Mean Corpuscular HGB Conc 32.2 g/dL (32.0-36.0); Mean Corpuscular Hemoglobin 25.1 pg (27.0-31.0); Mean Corpuscular Volume 77.9 fL (78.0-102.0); Platelet Count Result 305 K/mm3 (150-420); Red Blood Count 4.58 M/mm3 (4.70-6.10); Red Cell Distribution Width 19.4 % (11.6-14.4); White Blood Count 6.2 K/mm3 (4.8-10.8)
[2022-10-08 07:24] LABS: Appearance Urine Clear (Clear); Bilirubin Urine Negative (Negative); Blood Urine Negative (Negative); Color Urine Light Yellow (Yellow); Glucose Urine UA 3+ (Negative); Ketones Urine Negative (Negative); Leukocyte Esterase Ur Negative (Negative); Nitrate Urine Negative (Negative); Protein Urine Negative (Negative); Specific Grav Ur <= 1.005 (1.010-1.020); Urobilinogen Urine 0.2 mg/dL (0.2-1.0)
[2022-10-08 07:32] LABS: Hemoglobin A1C 11.1 % (<5.7)
[2022-10-08 07:55] LABS: Add Urine Microscopic? YES; Bacteria Urine Rare /hpf; Creatinine Urine 23.79 mg/dL (40-278); MALB Creatinine Ratio 54.6 mg/g (0-30); Microalbumin Urine Random < 13.0 mg/L; RBC Urine None seen /hpf (0-2); WBC Urine None seen /hpf (0-3)
[2022-10-08 08:13] LABS: Alanine Aminotransferase 22 U/L (16-63); Albumin Level 3.4 g/dL (3.4-5.0); Alkaline Phosphatase 75 U/L (46-116); Anion Gap 8 mmol/L (8-16); Aspartate Amino Transferase 14 U/L (15-37); Bilirubin,Total 0.1 mg/dL (0.00-1.00); Blood Urea Nitrogen 9 mg/dL (7-18); Calcium 9.1 mg/dL (8.5-10.1); Carbon Dioxide 27 mmol/L (21-32); Chloride 99 mmol/L (98-108); Estimated Glomerular Filt Rate > 60; Osmolality Calculated 295 mOsm/kg (285-295); Potassium 5.3 mmol/L (3.5-5.1); Sodium 134 mmol/L (136-145); Thyroid Stimulating Hormone 3.21 uIU/mL (0.36-3.74); Total Protein 6.5 g/dL (6.4-8.2)
[2022-10-08 08:25] LABS: Total Cells Counted 100
[2022-10-08 08:27] LABS: Band Neutrophils Percent 1 % (0-6); Basophils Percent Manual 0 % (0-1); Eosinophils Percent Manual 0 % (1-6); Lymphocytes Absolute Manual 1.98 K/mm3 (1.1-4.5); Lymphocytes Percent Manual 32 % (18-44); Monocytes Absolute Manual 0.99 K/mm3 (0.1-0.90); Monocytes Percent Manual 16 % (3-9); Neutrophils Absolute Manual 3.22 K/mm3 (1.3-6.7); Neutrophils Percent Manual 51 % (46-73); Platelet Estimate Adequate (Adequate)
[2022-10-08 09:05] LABS: Glucose 432 mg/dL (70-99)
[2022-10-08 09:54] LABS: Ferritin 11 ng/mL (26-388); Iron 20 ug/dL (65-175); Percent Iron Saturation 4 % (12-57)
== END 2022-10-08 06:59 | disposition home or self-care (01) ==
LOC: CHSLAB 07:00
PROVIDERS: PCP Family Medicine; Visit Provider Family Medicine
DX: E11.9 Type 2 diabetes mellitus without complications (principal); M10.9 Gout, unspecified
CPT/HCPCS: 36415; 80053; 81001; 82043; 82728; 83036; 83540; 83550; 84443; 85025

== ENCOUNTER 2022-10-23 08:32 | Outpatient (CLI) | payer MEDICARE, SELFPAY ==
[2022-10-23 08:49] LABS: Occult Blood Negative (Negative)
== END 2022-10-23 08:33 | disposition home or self-care (01) ==
PROVIDERS: PCP Family Medicine; Visit Provider Family Medicine
DX: D50.9 Iron deficiency anemia, unspecified (principal)
CPT/HCPCS: 82272

== ENCOUNTER 2022-10-28 15:34 | Outpatient (CLI) | payer MEDICARE, SELFPAY ==
[2022-10-28 15:49] LABS: Occult Blood Negative (Negative)
== END 2022-10-28 15:35 | disposition home or self-care (01) ==
LOC: CHSLAB 15:38
PROVIDERS: PCP Family Medicine; Visit Provider Family Medicine
DX: D50.9 Iron deficiency anemia, unspecified (principal)
CPT/HCPCS: 82272

== ENCOUNTER 2022-11-26 08:58 | Outpatient (CLI) | payer MEDICARE, SELFPAY ==
[2022-11-26 09:15] LABS: Hemoglobin 13.8 g/dL (14.0-18.0); Mean Corpuscular HGB Conc 32.9 g/dL (32.0-36.0); Mean Corpuscular Hemoglobin 28.2 pg (27.0-31.0); Mean Corpuscular Volume 85.7 fL (78.0-102.0); Mean Platelet Volume 9.7 fl (8.7-11.0); Platelet Count Result 217 K/mm3 (150-420); Reticulocyte Hemoglobin Conten 37.2 pg (28.0-35.0); Reticulocytes Absolute 0.07 M/mm3 (0.02-0.1); White Blood Count 5.9 K/mm3 (4.8-10.8)
[2022-11-26 10:03] LABS: Band Neutrophils Percent 0 % (0-6); Eosinophils Absolute Manual 0.05 K/mm3 (0.02-0.5); Eosinophils Percent Manual 1 % (1-6); Lymphocytes Absolute Manual 2.24 K/mm3 (1.1-4.5); Lymphocytes Percent Manual 38 % (18-44); Monocytes Absolute Manual 0.53 K/mm3 (0.1-0.90); Monocytes Percent Manual 9 % (3-9); Neutrophils Absolute Manual 3.06 K/mm3 (1.3-6.7); Neutrophils Percent Manual 52 % (46-73); Platelet Estimate Adequate (Adequate); Total Cells Counted 100
[2022-11-26 10:28] LABS: Ferritin 72 ng/mL (26-388); Iron 93 ug/dL (65-175); Percent Iron Saturation 25 % (12-57)
== END 2022-11-26 08:59 | disposition home or self-care (01) ==
LOC: CHSLAB 09:01
PROVIDERS: PCP Family Medicine; Visit Provider Family Medicine
DX: D50.9 Iron deficiency anemia, unspecified (principal)
CPT/HCPCS: 36415; 82728; 83540; 83550; 85025; 85046

== ENCOUNTER 2023-03-20 13:27 | Outpatient (CLI) | payer MEDICARE, MEDICAID, SELFPAY ==
--- NOTE | ~2023-03-20 | XR_ITS ---
XR knee RT min 4V 03/20/2023 13:54 Indication: Right knee pain after recent fall Procedure: 5 views of the right knee Comparison: No prior studies for comparison. Findings: Mild osteoarthritis of the right knee. Small joint effusion. There is multi partite patella . There is a healed proximal tibial metaphyseal fracture. Impression: 1: No acute fracture. 2: Small joint effusion. Reviewed, dictated and finalized at location L. ICAL REGISTERED NURSE Impression: 1: No acute fracture. 2: Small joint effusion.
== END 2023-03-20 13:28 | disposition home or self-care (01) ==
LOC: CHSIMG 13:29
PROVIDERS: PCP Family Medicine; Visit Provider Family Medicine
DX: M25.562 Pain in left knee (principal); M25.461 Effusion, right knee
CPT/HCPCS: 73564

== ENCOUNTER 2023-07-31 07:52 | Outpatient (CLI) | payer MEDICARE, MEDICAID, SELFPAY ==
[2023-07-31 08:09] LABS: Hematocrit 47.9 % (40.0-54.0); Hemoglobin 16.4 g/dL (14.0-18.0); Mean Corpuscular HGB Conc 34.2 g/dL (32-36); Mean Corpuscular Hemoglobin 32.6 pg (27.0-31.0); Mean Corpuscular Volume 95.2 fL (78.0-102.0); Mean Platelet Volume 9.2 fl (8.7-11.0); Platelet Count Result 234 K/mm3 (150-420); Red Blood Count 5.03 M/mm3 (4.70-6.10); Red Cell Distribution Width 13.8 % (11.6-14.4); White Blood Count 8.8 K/mm3 (4.8-10.8)
[2023-07-31 08:32] LABS: Anion Gap 10 mmol/L (4-12); Blood Urea Nitrogen 15 mg/dL (7-18); Calcium 9.2 mg/dL (8.5-10.1); Carbon Dioxide 28 mmol/L (21-32); Chloride 99 mmol/L (98-108); Estimated Glomerular Filt Rate > 60; Glucose 126 mg/dL (70-99); Osmolality Calculated 286 mOsm/kg (285-295); Potassium 4.9 mmol/L (3.5-5.1); Sodium 137 mmol/L (136-145); Uric Acid 4.5 mg/dL (3.5-7.2)
[2023-07-31 08:42] LABS: Band Neutrophils Percent 0 % (0-6); Eosinophils Absolute Manual 0.08 K/mm3 (0.02-0.50); Eosinophils Percent Manual 1 % (1-6); Lymphocytes Absolute Manual 1.58 K/mm3 (1.1-4.5); Lymphocytes Percent Manual 18 % (18-44); Monocytes Absolute Manual 2.11 K/mm3 (0.1-0.90); Monocytes Percent Manual 24 % (3-9); Neutrophils Absolute Manual 5.01 K/mm3 (1.3-6.7); Neutrophils Percent Manual 57 % (46-73); Total Cells Counted 100
[2023-07-31 08:43] LABS: Platelet Estimate Adequate (Adequate)
== END 2023-07-31 07:53 | disposition home or self-care (01) ==
PROVIDERS: PCP Family Medicine; Visit Provider Family Medicine
DX: R79.9 Abnormal finding of blood chemistry, unspecified (principal)
CPT/HCPCS: 36415; 80048; 84550; 85025

== ENCOUNTER 2023-10-29 10:04 | Outpatient (CLI) | payer MEDICARE, MEDICAID, SELFPAY ==
--- NOTE | ~2023-10-29 | XR_ITS ---
Right Knee Technique: AP, lateral, and sunrise views were obtained. Clinical History: Pain COMPARISON: 03/12/2023 Findings: No fracture or dislocation is seen. Bipartite patella noted. Osseous alignment is anatomic. Joint spaces are preserved without degenerative or erosive change. Soft tissues are unremarkable. No joint effusion is seen. Impression: No acute abnormality. Bipartite patella. Reviewed, dictated and finalized at location . Impression: No acute abnormality. Bipartite patella.
[2023-10-29 10:27] LABS: Hemoglobin A1C 7.2 % (<5.7)
[2023-10-29 11:27] LABS: Prostate Specific Antigen 0.7 ng/mL (< OR = 4.0)
== END 2023-10-29 10:05 | disposition home or self-care (01) ==
PROVIDERS: PCP Family Medicine; Visit Provider Family Medicine
DX: E11.8 Type 2 diabetes mellitus with unspecified complications (principal); Z12.5 Encounter for screening for malignant neoplasm of prostate; M25.561 Pain in right knee
CPT/HCPCS: 36415; 73562; 83036; 84153; G0103

== ENCOUNTER 2024-03-11 12:09 | Emergency (ER) | payer MEDICARE, MEDICAID, SELFPAY ==
--- NOTE | ~2024-03-11 | XR_ITS ---
XR knee LT 3V 03/11/2024 13:29 Indication: Left knee pain Procedure: 3 views left knee Comparison: No prior studies for comparison. Findings: No fracture, subluxation or dislocation. No significant joint effusion. No foreign bodies. Impression: 1: No significant bone or joint abnormality. Reviewed, dictated and finalized at location [facility]. 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
[2024-03-11 12:15] VITALS: BP 155/99; PULSE 91; RESP 12; TEMP 36.7; O2SAT 97
--- NOTE | 2024-03-11 13:37 | ED.LOWEXIN ---
HPI - Extremity Injury (Lower) General Chief Complaint: Extremity Injury, Lower Stated Complaint: left knee pain Time Seen by Provider: 03/11/24 12:19 Source: patient Mode of arrival: ambulatory Limitations: no limitations History of Present Illness HPI Narrative: this is a 53-year-old male who presents with knee pain no injury, patient has been working and putting pressure on his anterior knee otherwise no redness no swelling there is some tenderness with palpation and movement otherwise has good range of motion with no calf pain. Onset (ago): day(s) Injury: Left: knee ( Tender with palpation) Severity: mild Related Data Home Medications ?Medication ?Instructions ?Recorded ?Confirmed ?Last Taken ?Type allopurinol 100 mg tablet 100 mg PO DAILY 01/07/22 01/08/22 01/07/22 History apixaban 5 mg tablet (Eliquis) 5 mg BID 01/07/22 01/08/22 01/07/22 History benztropine 0.5 mg tablet 0.5 mg PO QHS 01/07/22 01/08/22 01/06/22 History clonazepam 0.5 mg tablet 0.25 mg PO QAM 01/07/22 01/08/22 01/07/22 History divalproex 250 mg tablet,delayed 750 mg PO Q12H 01/07/22 01/08/22 01/07/22 History release famotidine 20 mg tablet 20 mg PO BID 01/07/22 01/08/22 01/07/22 History glipizide 10 mg tablet, extended 20 mg PO DAILY 01/07/22 01/08/22 01/07/22 History release 24 hr metformin 1,000 mg tablet 1,000 mg PO BID 01/07/22 01/08/22 01/07/22 History omega-3 fatty acids-fish oil 684 1 cap PO DAILY 01/07/22 01/08/22 01/07/22 History mg-1,200 mg capsule,delayed release paroxetine HCl 20 mg tablet 20 mg PO QHS 01/07/22 01/08/22 01/06/22 History risperidone 4 mg tablet 4 mg PO HS 01/07/22 01/08/22 01/06/22 History sitagliptin phosphate 100 mg 100 mg PO DAILY 01/07/22 01/08/22 01/07/22 History tablet (Januvia) sodium chloride 1 gram tablet 1,000 mg PO BID 01/07/22 01/08/22 01/07/22 History clonazepam 0.5 mg disintegrating 0.5 mg PO 1600 01/08/22 01/08/22 Unknown History tablet Allergies Allergy/AdvReac Type Severity Reaction Status Date / Time haloperidol (From Haldol) AdvReac Depression Verified 01/07/22 18:22 Review of Systems Review of Systems: All systems reviewed & are unremarkable except as noted in HPI and below PMFSH Past Medical History Medical History GERD (gastroesophageal reflux disease) Type 2 diabetes mellitus Seizure disorder COPD (chronic obstructive pulmonary disease) Schizoaffective disorder Lymphoma (~2020) Treated at [facility] Continuous tobacco abuse Surgical History Surgical History Surgical history unknown Family History Family History Grandparent Heart attack CKD (chronic kidney disease) Diabetes mellitus Social History Social History Social History: The patient reports that he has lived at a assisted but he cannot report how long he has been there. He states that he is not live there very long. He still smokes 1 pack of cigarettes per day. He used to drink what sounds like a moderate amount or at least a couple of drinks nightly. He has not drank alcohol since he moved to the assisted. He used to smoke marijuana but does not do so since he moved to the assisted. Code status: Full code Surrogate decision maker: Mother Smoking packs per day: 1 Smoking cigarettes per day: 20.0 Years smoked: 35 Smoking pack-years: 35.00 Smoking status: Current every day smoker Alcohol intake: former Substance use: former Substance use type: marijuana Lack of Transportation: No Lack of Food: Never True Current Housing: I Have Housing Concerned About Future Housing: No Difficulty Paying Gas/Electric Bills: No Difficulty Paying for Meds: No Currently Unemployed: No Education: Grade School Difficulty w/ Childcare or Family Care: No Spiritual care concerns: No Exam Const: General: healthy appearing Nutritional Appearance: well nourished Orientation/consciousness: patient oriented x3 Limitations: no limitations HENMT: Head: normal to inspection Eyes: Conjunctivae: conjunctivae normal Pupils: Equal, round and reactive pupils present EOM: EOMs intact bilaterally Neck: Neck: normal visual inspection Resp: Effort & Inspection: normal respiratory effort Auscultation: clear to auscultation bilaterally Cardio: Rate: regular rate Rhythm: regular rhythm GI: Auscultation: normal bowel sounds Skin: General skin exam: normal color Rashes: no rashes Neuro: General: patient oriented x3 and moves all extremities Extrem: General: normal to inspection Course Course Emergency Course: patient received 60mg IM Toradol after reassessment pain level has improved x-ray performed shows no acute abnormalities. Vital Signs Vital signs: Vital Signs Temperature 36.7 C 03/11/24 12:15 Pulse Rate 91 03/11/24 12:15 Respiratory Rate 12 03/11/24 12:15 Blood Pressure 155/99 H 03/11/24 12:15 Pulse Oximetry 97 03/11/24 12:15 Oxygen Delivery Room Air 03/11/24 12:15 Temperature 36.7 C 03/11/24 12:15 Pulse Rate 91 03/11/24 12:15 Respiratory Rate 12 03/11/24 12:15 Blood Pressure 155/99 H 03/11/24 12:15 Pulse Oximetry 97 03/11/24 12:15 Oxygen Delivery Room Air 03/11/24 12:15 Critical Care Time Critical Care Time Critical Care Time: No Discharge Plan Discharge Clinical Impression: Knee strain Qualifiers: Encounter type: initial encounter Laterality: left Qualified Code(s): S86.912A - Strain of unspecified muscle(s) and tendon(s) at lower leg level, left leg, initial encounter Patient Disposition: Home, Self-Care Condition: Stable Instructions: Antibiotic Form Additional Instructions: advised to take medication as prescribed and to follow with primary within 1 week for further evaluation treatment. Patient Language: Ecuadorean Prescriptions: New tramadol 50 mg tablet 50 mg PO Q6H PRN (Reason: pain) Qty: 20 0RF No Action benztropine 0.5 mg Tablet 0.5 mg PO QHS divalproex 250 mg Tablet,Delayed Release (Dr/Ec) 750 mg PO Q12H risperidone 4 mg Tablet 4 mg PO HS glipizide 10 mg Tablet Extended Release 24hr 20 mg PO DAILY clonazepam 0.5 mg Tablet 0.25 mg PO QAM sodium chloride 1 gram Tablet 1,000 mg PO BID allopurinol 100 mg Tablet 100 mg PO DAILY famotidine 20 mg Tablet 20 mg PO BID paroxetine HCl 20 mg Tablet 20 mg PO QHS metformin 1,000 mg Tablet 1,000 mg PO BID Januvia 100 mg Tablet 100 mg PO DAILY omega-3 fatty acids-fish oil 684-1,200 mg Capsule,Delayed Release(Dr/Ec) 1 cap PO DAILY Eliquis 5 mg Tablet 5 mg BID clonazepam 0.5 mg Tablet,Disintegrating 0.5 mg PO 1600 nicotine (polacrilex) 4 mg Gum 4 mg PO Q4H PRN (Reason: Nicotine Cravings) 30 Days Qty: 30 0RF Follow-up/Referrals: Luis Eduardo Balderas MD [Primary Care Provider] - Time of Disposition: 13:42
[2024-03-11] MEDS: KETOROLAC (*BKC) 60 MG/2 ML VIAL IM (13:52)
[2024-03-11 13:57] VITALS: BP 127/84; PULSE 74; RESP 20; TEMP 36.8; O2SAT 97
== END 2024-03-11 13:57 | disposition home or self-care (01) ==
PROVIDERS: Emergency Provider Emergency Medicine; PCP Family Medicine
DX: S86.912A Strain of unspecified muscle(s) and tendon(s) at lower leg level, left leg, initial encounter (principal); E11.9 Type 2 diabetes mellitus without complications; J44.9 Chronic obstructive pulmonary disease, unspecified; F17.210 Nicotine dependence, cigarettes, uncomplicated; Z85.72 Personal history of non-Hodgkin lymphomas; X58.XXXA Exposure to other specified factors, initial encounter
CPT/HCPCS: 73562; 96372; 99283; J1885

== ENCOUNTER 2024-05-03 10:13 | Emergency (ER) | payer MEDICARE, MEDICAID, SELFPAY ==
--- NOTE | ~2024-05-03 | XR_ITS ---
EXAMINATION: XR knee LT 3V DATE: 05/03/2024 11:12 INDICATION: Left knee pain. TECHNIQUE: 3 views of left knee were obtained. COMPARISON: Left knee radiographs 03/11/2024 FINDINGS: Alignment is normal. No fracture. There is mild osteoarthritis of medial and lateral compar tments. There is a small knee joint effusion. IMPRESSION: 1. Mild left knee osteoarthritis. 2. Small left knee joint effusion. Reviewed, dictated and finalized at location [facility]. [facility] [employer]
[2024-05-03 10:28] VITALS: BP 110/91; PULSE 83; RESP 18; TEMP 36.4; O2SAT 99
--- NOTE | 2024-05-03 10:58 | ED.LOWEXIN ---
HPI - Extremity Injury (Lower) General Chief Complaint: Extremity Injury, Lower Stated Complaint: KNEE PAIN Time Seen by Provider: 05/03/24 10:52 Source: patient Mode of arrival: ambulatory Limitations: no limitations History of Present Illness HPI Narrative: 53 years old white male came to the ED by private car complaining of left knee pain, denies any recent trauma, history of chronic left knee pain of unknown etiology. Pain worse when he bends the knee and put weight on it Related Data Home Medications ?Medication ?Instructions ?Recorded ?Confirmed ?Last Taken ?Type apixaban 5 mg tablet (Eliquis) 2.5 mg PO BID 01/07/22 01/08/22 01/07/22 History benztropine 0.5 mg tablet 0.5 mg PO QHS 01/07/22 01/08/22 01/06/22 History divalproex 250 mg tablet,delayed 750 mg PO Q12H 01/07/22 01/08/22 01/07/22 History release famotidine 20 mg tablet 20 mg PO BID 01/07/22 01/08/22 01/07/22 History glipizide 10 mg tablet, extended 20 mg PO DAILY 01/07/22 01/08/22 01/07/22 History release 24 hr metformin 1,000 mg tablet 1,000 mg PO BID 01/07/22 01/08/22 01/07/22 History paroxetine HCl 20 mg tablet 20 mg PO QHS 01/07/22 01/08/22 01/06/22 History risperidone 4 mg tablet 4 mg PO HS 01/07/22 01/08/22 01/06/22 History sitagliptin phosphate 100 mg 100 mg PO DAILY 01/07/22 01/08/22 01/07/22 History tablet (Januvia) sodium chloride 1 gram tablet 1,000 mg PO BID 01/07/22 01/08/22 01/07/22 History acetaminophen 325 mg tablet 650 mg PO Q4H PRN pain 05/03/24 Unknown History aluminum-mag hydroxide-simethicone 10 ml PO HS PRN indigestion 05/03/24 Unknown History 200 mg-200 mg-20 mg/5 mL oral susp (Antacid-Antigas) empagliflozin 25 mg tablet 25 mg PO DAILY 05/03/24 Unknown History (Jardiance) ferrous sulfate 325 mg (65 mg 325 mg PO BID 05/03/24 Unknown History iron) tablet (FeroSul) loratadine 10 mg tablet 10 mg PO Q24H 05/03/24 Unknown History nicotine 21 mg/24 hr daily 1 patch transdermal Q24H 05/03/24 Unknown History transdermal patch pioglitazone 30 mg tablet 30 mg PO DAILY 05/03/24 Unknown History Allergies Allergy/AdvReac Type Severity Reaction Status Date / Time haloperidol (From Haldol) AdvReac Depression Verified 05/03/24 10:24 Review of Systems Review of Systems: All systems reviewed & are unremarkable except as noted in HPI and below PMFSH Past Medical History Medical History GERD (gastroesophageal reflux disease) Type 2 diabetes mellitus Seizure disorder COPD (chronic obstructive pulmonary disease) Schizoaffective disorder Lymphoma (~2020) Treated at [facility] Continuous tobacco abuse Surgical History Surgical History Surgical history unknown Family History Family History Grandparent Heart attack CKD (chronic kidney disease) Diabetes mellitus Social History Social History Social History: The patient reports that [facility] has [facility] but he cannot report how long he has been there. He states that he is not live there very long. He still smokes 1 pack of cigarettes per day. He used to drink what sounds like a moderate amount or at least a couple of drinks nightly. He has not drank alcohol since he moved to the [facility]. He used to smoke marijuana but does not do so since he moved to the [facility]. Code status: Full code Surrogate decision maker: Mother Smoking packs per day: 1 Smoking cigarettes per day: 20.0 Years smoked: 35 Smoking pack-years: 35.00 Smoking status: Current every day smoker Alcohol intake: former Substance use: former Substance use type: marijuana Lack of Transportation: No Lack of Food: Never True Current Housing: I Have Housing Concerned About Future Housing: No Difficulty Paying Gas/Electric Bills: No Difficulty Paying for Meds: No Currently Unemployed: No Education: Grade School Difficulty w/ Childcare or Family Care: No Spiritual care concerns: No Exam Narrative: General appearance: Well-developed, well-nourished Skin: Normal color Head: Normocephalic, nontraumatic Eyes: Clear conjunctiva ENT: Oropharynx normal, ears normal, nose normal Neck: Supple, nontender Chest and respiratory: Airway patent, no respiratory distress, no accessory muscle use Heart: Regular rate/rhythm Abdomen: Soft, nontender, no organomegaly, quiet bowel sounds Vascular: Normal peripheral pulses, normal capillary refill. Musculoskeletal: left knee exam showed no deformity, no swelling, no bruises, no warmth, no rash, slight limited flexion because of pain. Left lower leg showed no tenderness, no swelling no tenderness of the calf muscle. 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 as tested, no gross motor deficit Course Vital Signs Vital signs: Vital Signs Temperature 36.4 C 05/03/24 10:28 Pulse Rate 83 05/03/24 10:28 Respiratory Rate 18 05/03/24 10:28 Blood Pressure 110/91 H 05/03/24 10:28 Pulse Oximetry 99 05/03/24 10:28 Oxygen Delivery Room Air 05/03/24 10:28 Temperature 36.4 C 05/03/24 10:28 Pulse Rate 83 05/03/24 10:28 Respiratory Rate 18 05/03/24 10:28 Blood Pressure 110/91 H 05/03/24 10:28 Pulse Oximetry 99 05/03/24 10:28 Oxygen Delivery Room Air 05/03/24 10:28 Critical Care Time Critical Care Time Critical Care Time: No Discharge Plan Discharge Clinical Impression: Knee pain, left Patient Disposition: Home, Self-Care Condition: Stable Instructions: Knee Pain (ED) Additional Instructions: Return if symptoms are worsening , call your family physician for appointment, take Tylenol as as needed for aches and pain, continue home medications. Knee brace Patient Language: Citizen [place] Prescriptions: No Action benztropine 0.5 mg Tablet 0.5 mg PO QHS divalproex 250 mg Tablet,Delayed Release (Dr/Ec) 750 mg PO Q12H risperidone 4 mg Tablet 4 mg PO HS glipizide 10 mg Tablet Extended Release 24hr 20 mg PO DAILY sodium chloride 1 gram Tablet 1,000 mg PO BID famotidine 20 mg Tablet 20 mg PO BID paroxetine HCl 20 mg Tablet 20 mg PO QHS metformin 1,000 mg Tablet 1,000 mg PO BID Januvia 100 mg Tablet 100 mg PO DAILY Eliquis 5 mg Tablet 2.5 mg PO BID acetaminophen 325 mg tablet 650 mg PO Q4H PRN (Reason: pain) ferrous sulfate [FeroSul] 325 mg (65 mg iron) tablet 325 mg PO BID nicotine 21 mg/24 hr patch 24 hour 1 patch transdermal Q24H alum-mag hydroxide-simeth [Antacid-Antigas] 200-200-20 mg/5 mL suspension 10 ml PO HS PRN (Reason: indigestion) pioglitazone 30 mg tablet 30 mg PO DAILY loratadine 10 mg tablet 10 mg PO Q24H Jardiance 25 mg tablet 25 mg PO DAILY Follow-up/Referrals: Luis Eduardo Balderas MD [Primary Care Provider] -
--- OUTSIDE RECORDS SUMMARY | 2024-05-03 10:59 | XMS_ITS | Patient Health Summary ---
Author Organization [facility] Address [address] [place] [address] Care Team Providers Care Food Science Technician Name Role Phone Mervin Hawk MD Primary Care Provider [phone] Note from [facility],non-owned Affiliates and Associated Physician Practices is amultiple site organization consisting of ambulatory clinics and hospital sitesin [place], [place], [place] and [place]. This disclosure is being madepursuant to the Care Everywhere program and may not contain all information available regarding this patient. Last updated 17.[facility] Allergies * Haloperidol(Other) Social History Tobacco Use Types Packs/Day Years Used Date Smoking Tobacco: Every Day Cigarettes 0.5 20 Smokeless Tobacco: Never Tobacco Cessation:Ready to Q uit: Yes; Counseling Given: Yes Alcohol Use Standard Drinks/Week Comments Yes 3 (1 standard drink = 0.6 oz pur e alcohol) Sex and Gender Information Value Date Recorded Sex Assigned at Not on file Gender Identity Not on file Sexual Orientation Not on file Last Filed Vital Signs Vital Sign Reading Time Taken Comments Blood Pressure 114/80 11/04/2018 1:39 PM CDT Pulse 74 11/04/2018 1:39 PM CDT Temperature 36.2 C (97.1 F) 11/04/2018 1:39 PM CDT Respiratory Rate 18 11/04/2018 1:39 PM CDT Oxygen Saturation 100% 11/04/2018 1:39 PM CDT Inhaled Oxygen Concentration - - Weight 88.6 kg (195 lb 6.4 oz) 11/04/2018 1:39 P M CDT Height 167.6 cm (5' 6 ) 11/04/2018 1:39 PM CDT Body Mass Index 31.54 11/04/2018 1:39 PM CDT Procedures * SARS-COV-2 (COVID-19) IN HOUSE(Performed 08/31/2019) * PET CT WHOLE BODY(Performed 11/30/2018) Performed for Other classical Hodgkin lymphoma of lymph nodes of multiple regions (HCC) * GLUCOSE SCREEN - POCT (IP) [facility](Performed 11/30/2018) * BONE MARROW BIOPSY (STL)(Performed 09/15/2018) * FLOW CYTOMETRY BONE MARROW(Performed 09/14/2018) Performed for Hodgkin lymphoma * PATHOLOGY TISSUE(Performed 08/27/2018) Results * SARS-COV-2 (COVID-19) IN HOUSE (08/31/2019 2:03 PM CDT) COVID-19 PCR Not detected Not detected, Invalid 09/01/2019 6:41 PM CDT [facility] Microbiology SPECIMEN FROM NASOPHARYNGEAL STRUCTURE / Unknown Collection / Unknown 08/31/2019 2:03 PM CDT 09/01/2019 11:24 AM CDT Narrative [facility] - 09/01/2019 6:41 PM CDT This Real Time RT-PCR assay was developed and its performance characteristics determined by [facility]. This test has been authorized by the Food and Drug administration (FDA)under an Emergency Use Authorization (EUA). This test has been validated in accordance with the FDA's guidance document Policy for Diagnostic Testing in Laboratories Certified to perform High Complexity Testing under CLIA prior to Emergency Use Authorization for Coronavirus Disease-2019 during the Public Health Emergency issued on May 22, 2019. FDA independent review of this validation is pending. This test is only authorized for the duration of time the declaration that circumstances exist justifying the authorization of emergency use of in vitro diagnostic tests for detection of SARS-CoV-2 virus and/or diagnosis of COVID-19 infection under section 564(b)(1) of the Act, 21 U.S.C 360bbb-3 (b)(1), unless the authorization is terminated or revoked sooner. Artem Thao MD LAB - MICROBIOLOGY ORDERABLES [facility] [address] [place], [place] [address] [phone] * PET CT WHOLE BODY (11/30/2018 12:15 PM CDT) Anatomical Region Laterality Modality Positron Emissio n Tomography (PET) 11/30/2018 2:45 PM CDT Impressions 11/30/2018 3:38 PM CDT IMPRESSION: Significantly decreased in size and metabolic activity of right cervical/supraclavicular lymphadenopathy, indicative of treatment response. No new hypermetabolic lymph node identified. (Deauville 2) Dictated by Gem Hussein M.D. This report was approved by Gem Hussein M.D. on 11/30/2018 3:08 PM . I, Dr. FROYLAN SILVA D.O. have personally reviewed and interpreted this examination/study. This report was electronically signed by FROYLAN SILVA D.O. on 11/30/2018 3:38 PM . Narrative 11/30/2018 3:38 PM CDT Procedure: PET/CT Study. Referring Physician: Daryl Angel HISTORY: History of Hodgkin's lymphoma status post 2 cycles of chemotherapy. Evaluate for subsequent treatment strategy. TECHNIQUE: 8.53 mCi of F-18 FDG was injected intravenously in the left wrist. PET/CT images were acquired from top of the head to the feet after approximately 60 minutes post-injection with the CT being low-dose, non-contrast. No separate report for the CT was generated as it was of non-diagnostic quality and was used for anatomic localization and attenuation correction only. Blood glucose level at the time of injection was 185 mg/dl. Patient's height 5'6 , weight 195 pounds. COMPARISON: PET/CT dated 04/18/2017. FINDINGS: For reference, SUV max of liver is 2.2, previously 2.1. SUV max of mediastinum 2.6. Head and neck: There is physiological FDG activity throughout the brain parenchyma. Decrease tracer uptake is noted at the left maxilla with SUV max of 3.5, likely odontogenic in nature. There are interval decrease in size and intensity of the previously identified right cervical and right supraclavicular lymphadenopathy with almost near normalization of tracer uptake. For reference, a 7 mm right level 2 cervical lymph node with SUV max of 1.8, previously measuring 1.8 cm with SUV max of 11.6. Chest: The heart size is normal. No pericardial effusion is present. Interval placement of left IJ approach Port A Catheter with tip terminates in the superior vena cava. The lungs are clear of focal consolidation. No pleural effusion or focal pleural thickening is identified. There is no evidence of pneumothorax. No suspicious hypermetabolic pulmonary nodule is identified. Subcentimeter right suprahilar node with SUV max of 3.1, likely reactive. No hypermetabolic or enlarged mediastinal axillary lymphadenopathy is seen. Abdomen and pelvis: Within the limitations of a noncontrast examination, the liver, gallbladder, spleen, pancreas, kidneys and adrenal glands are unremarkable. There is normal FDG activity throughout the small and large bowel. No free air or free fluid is identified within the abdomen. There is no hypermetabolic or enlarged abdominal or pelvic lymphadenopathy. Musculoskeletal: Mild multilevel degenerative changes are noted. No suspicious lytic or sclerotic FDG avid lesion is identified. Procedure Note Froylan Silva, DO - 11/30/2018 Procedure: PET/CT Study. Referring Physician: Daryl Angel HISTORY: History of Hodgkin's lymphoma status post 2 cycles of chemotherapy. Evaluate for subsequent treatment strategy. TECHNIQUE: 8.53 mCi of F-18 FDG was injected intravenously in the left wrist. PET/CT images were acquired from top of the head to the feetafter approximately 60 minutes post-injection with the CT being low-dose, non-contrast. No separate report for the CT was generated as it was of non-diagnostic quality and was used for anatomic localization and attenuation correction only. Blood glucose level at the time ofinjection was 185 mg/dl. Patient's height 5'6 , weight 195 pounds. COMPARISON: PET/CT dated 04/18/2017. FINDINGS: For reference, SUV max of liver is 2.2, previously 2.1. SUV max of mediastinum 2.6. Head and neck: There is physiological FDG activity throughout the brain parenchyma. Decrease tracer uptake is noted at the left maxilla with SUV max of 3.5, likely odontogenic in nature. There are interval decrease in size and intensity of the previously identified right cervical and right supraclavicular lymphadenopathy with almost near normalization of tracer uptake. For reference, a 7 mm right level 2 cervical lymph node with SUV max of 1.8, previously measuring1.8 cm with SUV max of 11.6. Chest: The heart size is normal. No pericardial effusion is present. Interval placement of left IJ approach Port A Catheter with tip terminates in the superior vena cava. The lungs are clear of focal consolidation. No pleural effusion or focal pleural thickening is identified. There is no evidence of pneumothorax. No suspicious hypermetabolic pulmonary nodule is identified. Subcentimeter right suprahilar node with SUV max of 3.1, likelyreactive. No hypermetabolic or enlarged mediastinal axillary lymphadenopathy is seen. Abdomen and pelvis: Within the limitations of a noncontrast examination, the liver, gallbladder, spleen, pancreas, kidneys and adrenal glands are unremarkable. There is normal FDG activity throughout the small and large bowel. No free air or free fluid is identified within the abdomen. There is no hypermetabolic or enlarged abdominal or pelvic lymphadenopathy. Musculoskeletal: Mild multilevel degenerative changes are noted. No suspicious lytic or sclerotic FDG avid lesion is identified. IMPRESSION: Significantly decreased in size and metabolic activity of right cervical/supraclavicular lymphadenopathy, indicative of treatment response. No new hypermetabolic lymph node identified. (Deauville 2) Dictated by Gem Hussein M.D. This report was approved by Gem Hussein M.D. on 11/30/2018 3:08 PM. I, Dr. FROYLAN SILVA D.O. have personally reviewed and interpreted this examination/study. This report was electronically signed by FROYLAN SILVA D.O. on11/30/2018 3:38 PM . Daryl Angel MD NM ORDERABLES * (ABNORMAL) GLUCOSE SCREEN - POCT (IP) [facility] (11/30/2018 10:27 AM CDT) Glucose WB/POC 185(A) 70 - 115 mg/dL [facility] POCT TESTING Blood BLOOD SPECIMEN / Unknown 11/30/2018 10:27 AM CDT Daryl Angel MD LAB - POINT OF CARE ORDERABLES [facility] POCT TESTING [address] [phone] * BONE MARROW BIOPSY (STL) (09/15/2018 8:00 AM CDT) Case Report Bone Marrow Patholog y Report Case: [id number] Authorizing Provider: Tegan Payton MD Collected: 09/15/2018 08:00 AM Pathologist: Ju Mcneal MD Received: 09/15/2018 04:13 PM Specimens: A) - Bone Marrow Core, [id number] B) - Bone Marrow Core, BN19-30 C) - Blood Peripheral, BN19-30 D) - Bone Marrow Aspirate, [id number] 2018 4:39 PM T [facility] Final Diagnosis Bone marrow, aspirate, clot section, and core biopsy: - Normocellular marrow with maturing trilineage hematopoiesis. - Decreased storage iron. - No evidence of lymphoma or high grade myeloid neoplasm. - See microscopic description. Peripheral blood smear: - Macrocytic anemia. - See microscopic description. 2018 4:39 PM T [facility] Comment In summary, the bone marrow is normocellular for age with maturing trilineage hematopoiesis and no evidence of lymphoma or high grade myeloid neoplasm. Clinical correlation is recommended. KR 2018 4:39 PM T [facility] Peripheral Smear Description CBC Data: WBC - 7.07, Hgb - 12.4, MCV - 96.4, MCHC - 32.9, and Plt - 256. Manual Differential Count (100 cells): 62% neutrophils, 30% lymphocytes, 7% monocytes, and 1% eosinophils. Leukocyte number: normal. Granulocyte morphology: normal. Lymphocyte morphology: normal. Erythrocyte number: normal. Erythrocyte morphology: macrocytic/normochromi c. Anisopoikilocytosis: not signifcant. Polychromasia: not significant. Platelet number: normal. Platelet morphology: normal. 2018 4:39 PM CDT [facility] Bone Marrow Aspirate Differential count (200 cells): 63% maturing myeloid precursors, 26.5% erythroid progenitors, 2% monocytes, 5.5% eosinophils, and 3% lymphocytes. Specimen quality: adequate. Spicules: present. Trilineage Hematopoiesis: present. Myeloid:Erythroid ratio: 2.7:1. Myeloid Maturation: normal. Erythroid Maturation: normal. Megakaryocyte morphology: normal nuclear lobation. Storage iron (by special stain): decreased. Sideroblastic iron (by special stain): Decreased. No ring sideroblasts. 2018 4:39 PM [facility] Bone Marrow Core Biopsy and Clot Section Description Specimen quality: The decalcified bone marrow core biopsy is adequate for evaluation. Cellularity: 50%, normocellular for age. Trilineage Hematopoiesis: present. Myeloid to Erythroid ratio: normal. Myeloid maturation and localization: normal. Erythroid maturation and localization: normal. Megakaryocyte number: normal. Megakaryocyte distribution: normal. Lymphoid aggregates: absent. Other: No granulomas identified. Core biopsy iron: Decreased. Reticulin stain: No significant fibrosis identified (MF-0). Clot section marrow particles: few. Clot section morphology: similar to core biopsy. Clot section iron: Decreased. Given the recent diagnosis of classical Hodgkin lymphoma, immunohistochemistry for CD30 is performed on the core biopsy in the [facility] of Pathology, with appropriately reactive control and is negative for tumor cells. 2018 4:39 PM [facility] Flow Cytometry Summary Concurrent flow cytometric analysis ([id number]) demonstrates no evidence of non-Hodgkin lymphoma or high grade myeloid neoplasm. 2018 4:39 PM [facility] Clinical History 47 year old man with recent diagnosis of classical Hodgkin lymphoma. Staging bone marrow biopsy. 2018 4:39 PM [facility] Materials Received Received are 19 slides and 2 blocks labeled as [id number] along with the outside pathology report. The materials originate from [facility], [address] [place] [address]. All materials are returned to the referring institution, along with a copy of our final report. 2018 4:39 PM [facility] Disclaimer The performance characteristics of all immunohistochemical and indirect immunofluorescence stains (if any) cited in this report were determined by the Histopathology Laboratory of [facility]. Some of these tests were developed by our own laboratory and have not been cleared or approved by the US Food and Drug Administration. The FDA does not require this test to go through premarket FDA review. These tests are used for clinical purposes. They should not be regarded as investigational or for research. This laboratory is certified under the Clinical Laboratory Improvement Amendments (CLIA) as qualified to perform high complexity clinical laboratory testing. This case has been personally reviewed and interpreted by the attending (teaching) pathologist. 2018 4:39 PM CDT [facility] Embedded Images 2018 4:39 PM CDT [facility] Pathology/Cytology SPECIMEN FROM BONE MARROW OBTAINED BY ASPIRATION / Unknown 09/15/2018 8:00 AM CDT 09/15/2018 4:13 PM CDT Miscellaneous samples (specimen) BONE MARROW SPECIMEN / Unknown 09/15/2018 8:00 AM CDT 09/15/2018 4:13 PM CDT Miscellaneous samples (specimen) PERIPHERAL BLOOD / Unknown 09/15/2018 8:00 AM CDT 09/15/2018 4:13 PM CDT Miscellaneous samples (specimen) SPECIMEN FROM BONE MARROW OBTAINED BY ASPIRATION / Unknown 09/15/2018 8:00 AM CDT 09/15/2018 4:13 PM CDT Tegan Payton MD LAB - PATHOLOGY/CYTO LOGY ORDERABLES Performing Organization Address City/State/[facility] Co de Phone Number [facility] [address] [phone] * FLOW CYTOMETRY BONE MARROW (09/14/2018 9:35 AM CDT) Case Report Flow Cytometry Case: [id number] Authorizing Provider: Tegan Payton MD Collected: 09/14/2018 09:35 AM Pathologist: Ju Mcneal MD Received: 09/14/2018 04:15 PM Specimen: Bone Marrow 09/15/2018 9:15 AM CDT [facility] Final Diagnosis Bone marrow, flow cytometric immunophenotypic analysis: - No evidence of non-Hodgkin lymphoma or high grade myeloid neoplasm. - See interpretation. 09/15/2018 9:15 AM CDT [facility] Flow Cytometry Interpretation The bone marrow specimen has a viability of 100%. The lymphocyte, dim CD45, monocyte, and granulocyte gunn are normal in relative proportion. Within the lymphocyte region, there is no monoclonal B-cell population identified (kappa:lambda ratio is 1.5:1). There is no expanded T-cell population seen. Within the dim CD45 region, there is no increase in blasts (1.6% of all events). A bone marrow aspirate smear prepared from the flow cytometry specimen is reviewed for quality control assessor purposes. In summary, the bone marrow specimen shows no evidence of a non-Hodgkin lymphoma or high grade myeloid neoplasm. Correlation with additional clinical information and the concurrent bone marrow biopsy specimen is required. KR 09/15/2018 9:15 AM [facility] Flow Cytometry Results Differential Result Comment Flow Cell Count /uL [id number] Total Viability % 100.0 Lymphocytes % 13 Dim CD45 Region % 4 Monocytes % 10 Granulocytes % 70 09/15/2018 9:15 AM [facility] Reason for test Hodgkin lymphoma 201.90 09/15/2018 9:15 AM [facility] Client Specimen ID # [id number] 09/15/2018 9:15 AM [facility] Number of markers 10 were performed. A Flow CD3 A Flow CD10 A Flow CD20 A Flow CD23 A Flow CD5 A Flow CD19 A Flow CD34 A Flow CD45 A Callahan+CD19+ A Lambda+CD19+ 09/15/2018 9:15 AM [facility] Disclaimer Test performed at [facility], [address] [place] [address], [id number]. *The established laboratory minimum viability is 70%. Values below the minimum may result in the failure to find an abnormal population of cells. This test was developed and its performance characteristics determined by the Flow Cytometry Laboratory. It has not been cleared by the [place] Food and Drug Administration (FDA). The FDA has determined that such clearance or approval is not necessary. This test is used for clinical purposes. It should not be regarded as investigational or for research. This laboratory is regulated under the Clinical Laboratory Improvement Amendments of 1998 (CLIA) as a qualified to perform high complexity clinical testing. 09/15/2018 9:15 AM [facility] Embedded Images 9 9:15 AM [facility] Pathology/Cytolo gy BONE MARROW SPECIMEN / Unknown 09/14/2018 9:35 AM CDT 09/14/2018 4:15 PM CDT Tegan Payton MD LAB - PATHOLOGY/CYTO LOGY ORDERABLES [facility] [address] [phone] * PATHOLOGY TISSUE (08/27/2018 8:00 AM CDT) Case Report Surgical Pathology Report Case: [id number] Authorizing Provider: Tegan Payton MD Collected: 08/27/2018 08:00 AM Pathologist: Ju Mcneal MD Received: 09/14/2018 03:40 PM Specimen: Lymph Node Biopsy, [id number] 09/14/2018 4:15 PM CDT [facility] Final Diagnosis Lymph node, right neck, needle core biopsy ([id number], 08/27/2018): - Classical Hodgkin lymphoma. - See description. 09/14/2018 4:15 PM CDT [facility] Microscopic Description and Comment Review of the material demonstrates thin cores of loosely fibrotic tissue infiltrated by mostly small, mature lymphocytes with scattered eosinophils and neutrophils. There are occasional Hodgkin/Adolfo-Sternber g cells singly dispersed throughout the tissue. No wide bands of fibrosis are identified. No necrosis or granulomas are seen. Immunohistochemistry is received for review with appropriately reactive controls. The tumor cells express CD30, CD15, PAX-5 (weak), and MUM-1. They lack significant expression of CD20. Interpretation of CD45 in the tumor cells is limited due to the number of neighboring lymphocytes. CD3, CD5, and BCL-2 are positive in T-cells. CD10 and cyclin D1 are negative. CD21 and CD23 show focal residual follicular dendritic cell meshworks. Concurrent flow cytometry is reportedly suboptimal given the low cellularity of the specimen. In summary, the sampled tissue designated as from the right cervical lymph node shows evidence of involvement by classical Hodgkin lymphoma. It is not recommended to perform further subclassification on needle core biopsies. Clinical correlation is required. KR 09/14/2018 4:15 PM CDT [facility] Clinical History Cervical lymphadenopathy. 09/14/2018 4:15 PM [facility] Materials Received Received are 16 slides labeled as [id number] along with the outside pathology report. The materials were interpreted at [address] [address] and are sent from [facility], [place] [address]. All materials are returned to the referring institution, along with a copy of our final report. 09/14/2018 4:15 PM [facility] Disclaimer The performance characteristics of all immunohistochemical and indirect immunofluorescence stains (if any) cited in this report were determined by the [facility]opathology Laboratory of [facility]. Some of these tests were developed by our own laboratory and have not been cleared or approved by the US Food and Drug Administration. The FDA does not require this test to go through premarket FDA review. These tests are used for clinical purposes. They should not be regarded as investigational or for research. This laboratory is certified under the Clinical Laboratory Improvement Amendments (CLIA) as qualified to perform high complexity clinical laboratory testing. This case has been personally reviewed and interpreted by the attending (teaching) pathologist. 09/14/2018 4:15 PM [facility] Embedded Images 09/14/2018 4:15 PM [facility] Pathology/Cytolo gy BIOPSY OF LYMPH NODE / Unknown 08/27/2018 8:00 AM CDT 09/14/2018 3:40 PM CDT Tegan Payton MD LAB - PATHOLOGY/CYTO LOGY ORDERABLES Performing Organization Address City/State/[facility] Co de Phone Number [facility] [address] [phone] Care Teams Food Science Technician Relationship Specialty Start Date End Date Mervin Hawk MD [address] [place] [phone] PCP - General 11/04/18
--- OUTSIDE RECORDS SUMMARY | 2024-05-03 10:59 | XMS_ITS | Encounter Summary ---
Author Organization [facility] Address [facility] [facility] [place] [address] Care Team Providers Care Braider Operator Name Role Phone Mervin Hawk MD Primary Care Provider [phone] Encounter Details Date Type Department Care Team (Late st Contact Info) Description 09/14/2018 Lab Requisition [facility] Care Pathology Lab [address] [place] [address] Tegan Payton MD [address] [place], [place] [id number] Hodgkin lymphoma (HCC) Social History Tobacco Use Types Packs/Day Years Used Date Smoking Tobacco: Never Assessed Sex and Gender Information Value Date Recorded Sex Assigned at Not on file Gender Identity Not on file Sexual Orientation Not on file documented as of this encounter Plan of Treatment Not on file documented as of this encounter Procedures Procedure Name Priority Date/Time Associated Diagnosis Comments FLOW CYTOMETRY BONE MARROW Routine 09/14/2018 9:35 AM CDT Hodgkin lymphoma documented in this encounter Results * FLOW CYTOMETRY BONE MARROW (09/14/2018 9:35 AM CDT) Case Report Flow Cytometry Case: [id number] Authorizing Provider: Tegan Payton MD Collected: 09/14/2018 09:35 AM Pathologist: Ju Mcneal MD Received: 09/14/2018 04:15 PM Specimen: Bone Marrow 09/15/2018 9:15 AM CDT [facility] Final Diagnosis Bone marrow, flow cytometric immunophenotypic analysis: - No evidence of non-Hodgkin lymphoma or high grade myeloid neoplasm. - See interpretation. 09/15/2018 9:15 AM CDT [facility] Flow Cytometry Interpretation The bone [...] flow cytometry specimen is reviewed for quality systems manager purposes. In summary, the bone marrow specimen shows no evidence of a non-Hodgkin lymphoma or high grade myeloid neoplasm. Correlation with additional clinical information and the concurrent bone marrow biopsy specimen is required. KR 09/15/2018 9:15 AM [facility] Flow Cytometry Results Differential Result Comment Flow Cell Count /uL [id number] Total Viability % 100.0 Lymphocytes % 13 Dim CD45 Region % 4 Monocytes % 10 Granulocytes % 70 09/15/2018 9:15 AM [facility] Reason for test Hodgkin lymphoma 201.90 09/15/2018 9:15 AM [facility] Client Specimen ID # [id number] 09/15/2018 9:15 AM [facility] Number of markers 10 were performed. A Flow CD3 A Flow CD10 A Flow CD20 A Flow CD23 A Flow CD5 A Flow CD19 A Flow CD34 A Flow CD45 A Mehan+CD19+ A Lambda+CD19+ 09/15/2018 9:15 AM [facility] Disclaimer Test performed at [facility], [address] [place] [address], [address]. *The established laboratory minimum viability is 70%. [...] high complexity clinical testing. 09/15/2018 9:15 AM CDT [facility] Embedded Images 9:15 AM CDT [facility] Pathology/Cytolo gy BONE MARROW SPECIMEN / Unknown 09/14/2018 9:35 AM CDT 09/14/2018 4:15 PM CDT Tegan Payton MD LAB - PATHOLOGY/CYTO LOGY ORDERABLES Performing Organization Address City/State/[facility] Co de Phone Number [facility] [address] [phone] documented in this encounter Visit Diagnoses Diagnosis Hodgkin lymphoma (HCC) Hodgkin's disease, unspecified documented in this encounter Additional Health Concerns Infection Onset Date Last Indicated Resolved Time COVID-19 Under Investigation 08/31/2019 08/31/2019 09/01/2019 6:41 PM CDT documented as of this encounter Care Teams Braider Operator Relationship Specialty Start Date End Date Mervin Hawk MD [address] [place] [address] PCP - General 11/04/18 documented as of this encounter
--- OUTSIDE RECORDS SUMMARY | 2024-05-03 10:59 | XMS_ITS | Encounter Summary ---
Author Organization [facility] Address [address] [place] [address] Phone Care Team Providers Care Federal Java Developer Name Role Phone Mervin Hawk MD Primary Care Provider [phone] Brian Kim MD Unavailable Baldev Espinal MD Unavailable [phone] Vu Beebe MD Unavailable [phone] Luis Eduardo Balderas MD Primary Care Provider [phone] Encounter Details Date Type Department Care Team (Late st Contact Info) Description 06/02/2019 [facility] [address] [place] [address] Brian Kim MD [address] [place] [address] Social History Tobacco Use Types Packs/Day Years Used Date Smoking Tobacco: Every Day Cigarettes 1 37.6 Started: 09/25/1986 Smokeless Tobacco: Former Comments:Makes his own. Alcohol Use Standard Drinks/Week Comments Yes 3 (1 standard drink = 0.6 oz pur e alcohol) 3 beers a week, Fri Sexually Active Control Partners Comments Not Currently Female Sex and Gender Information Value Date Recorded Sex Assigned at Not on file Legal Sex Male 11:53 PM CDT Gender Identity Not on file Sexual Orientation Not on file documented as of this encounter Miscellaneous Notes * Telephone Encounter - Lisa Santos Sreekanth - 06/02/2019 10:03 AM CDT The patient's mother Lacie called stating the nursing facility Haris resides at informed her that Haris has a rash on his hands, swollen scrotum, a sore on his penis, and pain in his private area. She also states Haris has a sore on his face. I advised Lacie to make sure she contact's Haris's PCP Mervin Hawk in [place] as soon as possible. She states Haris has an appointment this afternoon and she will make sure to keep our office informed. The patient is not currently undergoing treatment. documented in this encounter Plan of Treatment Upcoming Encounters Date Type Department Care Team (Late st Contact Info) Description 10/13/2024 1:00 PM CDT Office Visit [facility] Oncology Services [address] [place] [phone] Vu Beebe MD [address] [place] [address] Discharge Disposition: Discharged to home or Selfcare documented as of this encounter Visit Diagnoses Not on filedocumented in this encounter Care Teams Federal Java Developer Relationship Specialty Start Date End Date Mervin Hawk MD [address] [place] [address] PCP - General Family Medicine 09/07/18 05/23/22 Luis Eduardo Balderas MD [address] [place] [address] PCP - General Internal Medicine 05/24/22 Brian Kim MD [address] [place] [address] Consulting Physician Medical Oncology 10/06/18 09/30/19 Baldev Espinal MD [address] [place] [address] Consulting Physician Radiation Oncology 10/06/18 Vu Beebe MD [address] [place] [address] Consulting Physician Medical Oncology 10/01/19 documented as of this encounter
--- OUTSIDE RECORDS SUMMARY | 2024-05-03 10:59 | XMS_ITS | Encounter Summary ---
Author Organization [facility] Address [address] [place] [address] [place] [address] Care Team Providers Care Doubler Helper Name Role Phone Mervin Hawk MD Primary Care Provider [phone] Encounter Details Date Type Department Care Team (Late st Contact Info) Description 09/01/2019 Lab Requisition [facility] [address] [place] [address] Artem Thao MD Social History Tobacco Use Types Packs/Day Years Used Date Smoking Tobacco: Every Day Cigarettes 0.5 20 Smokeless Tobacco: Never Alcohol Use Standard Drinks/Week Comments Yes 3 (1 standard drink = 0.6 oz pur e alcohol) Sex and Gender Information Value Date Recorded Sex Assigned at Not on file Gender Identity Not on file Sexual Orientation Not on file documented as of this encounter Plan of Treatment Not on file documented as of this encounter Procedures Procedure Name Priority Date/Time Associated Diagnosis Comments SARS-COV-2 (COVID-19) IN HOUSE Routine 08/31/2019 2:03 PM CDT documented in this encounter Results * SARS-COV-2 (COVID-19) IN HOUSE (08/31/2019 2:03 PM CDT) COVID-19 PCR Not detected Not detected, Invalid 09/01/2019 6:41 PM CDT [facility] Microbiology SPECIMEN FROM NASOPHARYNGEAL STRUCTURE / Unknown Collection / Unknown 08/31/2019 2:03 PM CDT 09/01/2019 11:24 AM CDT Narrative [facility] - 09/01/2019 6:41 PM CDT This Real Time RT-PCR assay was developed and its performance characteristics determined by [facility]. This test has been [...] Artem Thao MD LAB - MICROBIOLOGY ORDERABLES [facility] [address] [place], [address] [phone] documented in this encounter Visit Diagnoses Not on filedocumented in this encounter Additional Health Concerns Infection Onset Date Last Indicated Resolved Time COVID-19 Under Investigation 08/31/2019 08/31/2019 09/01/2019 6:41 PM CDT documented as of this encounter Care Teams Doubler Helper Relationship Specialty Start Date End Date Mervin Hawk MD [address] [place] [phone] PCP - General 11/04/18 documented as of this encounter
--- OUTSIDE RECORDS SUMMARY | 2024-05-03 10:59 | XMS_ITS | Clinical Summary ---
Author Organization [facility] Address [address] [place] [address] Care Team Providers Care Communications Representative Name Role Phone Mervin Hawk MD Primary Care Provider [phone] Source Comments [facility] Affiliates and Associated Physician Practices is amultiple site organization consisting of ambulatory clinics and hospital sitesin [place], [place], [place] and [place]. This disclosure is being madepursuant to the Care Everywhere program and may not contain all information available regarding this patient. Last updated 17.[facility] Allergies Active Allergy Reactions Criticality Noted Date Comments Haloperidol Other 11/30/2018 Patient feels violent when on halodol Family History Medical History Relation Name Comments Cancer - Other Maternal Grandmother Relation Name Status Comments Father Maternal Grandmother Mother Alive Social History Tobacco Use Types Packs/Day Years [...] Mass Index 31.54 11/04/2018 1:39 PM CDT Plan of Treatment Health Maintenance Due Date Last Done Comments COLOGUARD (AGES 45-75) - COL ON CA SCREENING 1970 COLON MONITORING 1970 COLONOSCOPY - COLON CA SCREENING 1970 CT COLONOGRAPHY - COLON CA SCREENING 1970 Colorectal Cancer Screening 1970 FIT - COLON CA SCREENING 1970 FLEX SIG - COLON CA SCREENING 1970 LIPID TESTING 1970 MEDICARE AWV 12 MONTHS 1970 HIV SCREENING 1985 HEPATITIS C SCREENING 09/11/1988 DTAP/TDAP/TD VACCINES (1 - Tdap) 1989 HEPATITIS B VACCINE (1 of 3 - 19+ 3-dose series) 1989 PNEUMOCOCCAL VACCINE 50+ (1 of 2 - PCV) 1989 PNEUMOCOCCAL VACCINE (1 of 2 - PCV) 1989 SCREENING FOR DIABETES 11/04/2018 ZOSTER VACCINE (1 of 2) 2020 COVID-19 VACCINE (1 - 2023-2 5 season) 2023 INFLUENZA VACCINE (#1) 2023 DEPRESSION SCREENING 03/24/2024 HIB VACCINE Aged Out No longer eligi ble based on patient's age to complete this topic HPV VACCINE Aged Out No longer eligi ble based on patient's age to complete this topic MENINGOCOCCAL (Group B) VACCINE Aged Out No longer eligible based on patient's age to complete this topic MENINGOCOCCAL VACCINE Aged Out No kathe jean-pierre eligible based on patient's age to complete this topic Insurance Payer Benefit Plan / Group Subscriber ID Effective Dates Phone Address Type MEDICARE MEDICARE PART A AND B [id number] Effective for all dates [phone] [address] [place] [address] Medicare MEDICARE [place] MEDICARE PART B [id number] 01/08/2022-Pr esent [address] [address] [place] [address] Medicare MEDICAID - OUT OF STATE MEDICAID - [facility] [id number] 01/08/2022-Pr esent [address] [address] [place] [address] Medicaid MEDICARE [place] MEDICARE PART B [id number] 01/08/2022-Pr esent [address] [address] [place] [address] Medicare MEDICAID - OUT OF STATE MEDICAID [facility] PUBLIC AID [id number] 01/08/2022-Pr esent [address] [address] [place] [address] Medicaid MEDICARE [place] MEDICARE PART B [id number] 01/08/2022-Pr esent [address] [address] [place] [address] Medicare MEDICAID - OUT OF STATE MEDICAID [facility] PUBLIC AID [id number] 01/08/2022-Pr esent [address] [address] [place] [address] Medicaid MEDICARE [place] MEDICARE PART B [id number] 01/08/2022-Pr esent [address] [address] [place] [address] Medicare MEDICAID - OUT OF [facility] MEDICAID [facility] PUBLIC AID [id number] 01/08/2022-Pr esent [address] [address] [place] [address] Medicaid MEDICARE [place] MEDICARE PART B [id number] 01/08/2022-Pr esent [address] [address] [place] [address] Medicare MEDICAID - OUT OF [facility] MEDICAID [facility] PUBLIC AID [id number] 01/08/2022-Pr esent [address] [address] [place] [address] Medicaid MEDICARE [place] MEDICARE PART B [id number] 01/08/2022-Pr esent [address] [address] [place] [address] Medicare MEDICAID - OUT OF [facility] MEDICAID [facility] PUBLIC AID [id number] 01/08/2022-Pr esent [address] [address] [place] [address] Medicaid MEDICARE [place] MEDICARE PART B [id number] 01/08/2022-Pr esent [address] [address] [place] [address] Medicare MEDICAID - OUT OF STATE MEDICAID [facility] PUBLIC AID [id number] 01/08/2022-Pr esent [address] [address] [place] [address] Medicaid MEDICARE [place] MEDICARE PART B [id number] 09/21/1993-Pres ent [address] [address] [place] [address] Medicare MEDICAID - OUT OF STATE MEDICAID [facility] PUBLIC AID [id number] Effective for all dates [address] [address] [place] [address] Medicaid MEDICARE [place] MEDICARE PART B [id number] 09/21/1993-Pres ent [address] [address] [place] [address] Medicare MEDICAID - OUT OF STATE MEDICAID [facility] PUBLIC AID [id number] Effective for all dates [address] [address] [place] [address] Medicaid MEDICARE [place] MEDICARE PART B [id number] 09/21/1993-Pres ent [address] [address] [place] [address] Medicare MEDICAID - OUT OF STATE MEDICAID [facility] PUBLIC AID [id number] Effective for all dates [address] [address] [place] [address] Medicaid MEDICARE [place] MEDICARE PART B [id number] 09/21/1993-Pres ent [address] [address] [place] [address] Medicare MEDICAID - OUT OF [facility] MEDICAID [facility] PUBLIC AID [id number] Effective for all dates [address] [address] [place] [address] Medicaid MEDICARE [place] MEDICARE PART B [id number] 09/21/1993-Pres ent [address] [address] [place] [address] Medicare MEDICAID - OUT OF STATE MEDICAID [facility] PUBLIC AID [id number] Effective for all dates [address] [address] [place] [address] Medicaid MEDICARE [place] MEDICARE PART B [id number] 09/21/1993-Pres ent [address] [address] [place] [address] Medicare MEDICAID - OUT OF [facility] MEDICAID [facility] PUBLIC AID [id number] Effective for all dates [address] [address] [place] [address] Medicaid MEDICARE [place] MEDICARE PART B [id number] 09/21/1993-Pres ent [address] [address] [place] [address] Medicare MEDICAID - OUT OF STATE MEDICAID [facility] PUBLIC AID [id number] Effective for all dates [address] [address] [place] [address] Medicaid MEDICARE [place] MEDICARE PART B [id number] 09/21/1993-Pres ent [address] [address] [place] [address] Medicare MEDICAID - OUT OF STATE MEDICAID [facility] PUBLIC AID [id number] Effective for all dates [address] [address] [place] [address] Medicaid MEDICARE [place] MEDICARE PART B [id number] 09/21/1993-Pres ent [address] [address] [place] [address] Medicare MEDICAID - OUT OF STATE MEDICAID [facility] PUBLIC AID [id number] Effective for all dates [address] [address] [place] [address] Medicaid MEDICARE [place] MEDICARE PART B [id number] 09/21/1993-Pres ent [address] [address] [place] [address] Medicare MEDICAID - OUT OF STATE MEDICAID [facility] PUBLIC AID [id number] Effective for all dates [address] [address] [place] [address] Medicaid MEDICARE [place] MEDICARE PART B [id number] 09/21/1993-Pres ent [address] [address] [place] [address] Medicare MEDICAID - OUT OF STATE MEDICAID [facility] PUBLIC AID [id number] Effective for all dates [address] [address] [place] [address] Medicaid MEDICARE [place] MEDICARE PART B [id number] 09/21/1993-Pres ent [address] [address] [place] [address] Medicare MEDICAID - OUT OF STATE MEDICAID [facility] PUBLIC AID [id number] Effective for all dates [address] [address] [place] [address] Medicaid MEDICARE [place] MEDICARE PART B [id number] 09/21/1993-Pres ent [address] [address] [place] [address] Medicare MEDICAID - OUT OF STATE MEDICAID [facility] PUBLIC AID [id number] Effective for all dates [address] [address] [place] [address] Medicaid MEDICARE [place] MEDICARE PART B [id number] 09/21/1993-Pres ent [address] [address] [place] [address] Medicare MEDICAID - OUT OF STATE MEDICAID [facility] PUBLIC AID [id number] Effective for all dates [address] [address] [place] [address] Medicaid MEDICARE [place] MEDICARE PART B [id number] 09/21/1993-Pres ent [address] [address] [place] [address] Medicare MEDICAID - OUT OF STATE MEDICAID [facility] PUBLIC AID [id number] Effective for all dates [address] [address] [place] [address] Medicaid MEDICARE [place] MEDICARE PART B [id number] 09/21/1993-Pres ent [address] [address] [place] [address] Medicare MEDICAID - OUT OF STATE MEDICAID [facility] PUBLIC AID [id number] Effective for all dates [address] [address] [place] [address] Medicaid MEDICARE [place] MEDICARE PART B [id number] 09/21/1993-Pres ent [address] [address] [place] [address] Medicare MEDICAID - OUT OF STATE MEDICAID [facility] PUBLIC AID [id number] Effective for all dates [address] [address] [place] [address] Medicaid MEDICARE [place] MEDICARE PART B [id number] 09/21/1993-Pres ent [address] [address] [place] [address] Medicare MEDICAID - OUT OF STATE MEDICAID [facility] PUBLIC AID [id number] Effective for all dates [address] [address] [place] [address] Medicaid MEDICARE [place] MEDICARE PART B [id number] 09/21/1993-Pres ent [address] [address] [place] [address] Medicare MEDICAID - OUT OF [facility] MEDICAID [facility] PUBLIC AID [id number] Effective for all dates [address] [address] [place] [address] Medicaid MEDICARE [place] MEDICARE PART B [id number] 09/21/1993-Pres ent [address] [address] [place] [address] Medicare MEDICAID - OUT OF STATE MEDICAID [facility] PUBLIC AID [id number] Effective for all dates [address] [address] [place] [address] Medicaid MEDICARE [place] MEDICARE PART B [id number] 09/21/1993-Pres ent [address] [address] [place] [address] Medicare MEDICAID - OUT OF STATE MEDICAID - [place] PUBLIC AID [id number] Effective for all dates [address] [address] [place] [address] Medicaid MEDICARE [place] MEDICARE PART B [id number] 09/21/1993-Pres ent [address] [address] [place] [address] Medicare MEDICAID - OUT OF STATE MEDICAID [facility] PUBLIC AID [id number] Effective for all dates [address] [address] [place] [address] Medicaid MEDICARE [place] MEDICARE PART B [id number] 09/21/1993-Pres ent [address] [address] [place] [address] Medicare MEDICAID - OUT OF STATE MEDICAID [facility] PUBLIC AID [id number] Effective for all dates [address] [address] [place] [address] Medicaid MEDICARE [place] MEDICARE PART B [id number] 09/21/1993-Pres ent [address] [address] [place] [address] Medicare MEDICAID - OUT OF STATE MEDICAID [facility] PUBLIC AID [id number] Effective for all dates [address] [address] [place] [address] Medicaid MEDICARE [place] MEDICARE PART B [id number] 09/21/1993-Pres ent [address] [address] [place] [address] Medicare MEDICAID - OUT OF STATE MEDICAID [facility] PUBLIC AID [id number] Effective for all dates [address] [address] [place] [address] Medicaid MEDICARE [place] MEDICARE PART B [id number] 09/21/1993-Pres ent [address] [address] [place] [address] Medicare MEDICAID - OUT OF STATE MEDICAID [facility] PUBLIC AID [id number] Effective for all dates [address] [address] [place] [address] Medicaid MEDICARE [place] MEDICARE PART B [id number] 09/21/1993-Pres ent [address] [address] [place] [address] Medicare MEDICAID - OUT OF STATE MEDICAID [facility] PUBLIC AID [id number] Effective for all dates [address] [address] [place] [address] Medicaid MEDICARE [place] MEDICARE PART B [id number] 09/21/1993-Pres ent [address] [address] [place] [address] Medicare MEDICAID - OUT OF STATE MEDICAID [facility] PUBLIC AID [id number] Effective for all dates [address] [address] [place] [address] Medicaid MEDICARE W[place] MEDICARE PART B [id number] 09/21/1993-Pres ent [address] [address] [place] [address] Medicare MEDICAID - OUT OF STATE MEDICAID [facility] PUBLIC AID [id number] Effective for all dates [address] [address] [place] [address] Medicaid MEDICARE [place] MEDICARE PART B [id number] 09/21/1993-Pres ent [address] [address] [place] [address] Medicare MEDICAID - OUT OF STATE MEDICAID [facility] PUBLIC AID [id number] Effective for all dates [address] [address] [place] [address] Medicaid MEDICARE [place] MEDICARE PART B [id number] 09/21/1993-Pres ent [address] [address] [place] [address] Medicare MEDICAID - OUT OF STATE MEDICAID [facility] PUBLIC AID [id number] Effective for all dates [address] [address] [place] [address] Medicaid MEDICARE W[place] MEDICARE PART B [id number] 09/21/1993-Pres ent [address] [address] [place] [address] Medicare MEDICAID - OUT OF STATE MEDICAID [facility] PUBLIC AID [id number] Effective for all dates [address] [address] [place] [address] Medicaid MEDICARE W[place] MEDICARE PART B [id number] 09/21/1993-Pres ent [address] [address] [place] [address] Medicare MEDICAID - OUT OF STATE MEDICAID [facility] PUBLIC AID [id number] Effective for all dates [address] [address] [place] [address] Medicaid MEDICARE [place] MEDICARE PART B [id number] 09/21/1993-Pres ent [address] [address] [place] [address] Medicare MEDICAID - OUT OF STATE MEDICAID [facility] PUBLIC AID [id number] Effective for all dates [address] [address] [place] [address] Medicaid MEDICARE [place] MEDICARE PART B [id number] 09/21/1993-Pres ent [address] [address] [place] [address] Medicare MEDICAID - OUT OF STATE MEDICAID [facility] PUBLIC AID [id number] Effective for all dates [address] [address] [place] [address] Medicaid MEDICARE MEDICARE PART A AND B [id number] 09/21/1993-Pres ent [address] [place] [address] Medicare MEDICARE W[place] MEDICARE PART B [id number] 09/21/1993-Pres ent [address] [address] [place] [address] Medicare MEDICAID - OUT OF STATE MEDICAID [facility] PUBLIC AID [id number] Effective for all dates [address] [address] [place] [address] Medicaid MEDICARE [place] MEDICARE PART B [id number] 09/21/1993-Pres ent [address] [address] [place] [address] Medicare MEDICAID - OUT OF STATE MEDICAID [facility] PUBLIC AID [id number] Effective for all dates [address] [address] [place] [address] Medicaid MEDICARE [place] MEDICARE PART B [id number] 09/21/1993-Pres ent [address] [address] [place] [address] Medicare MEDICARE [place] MEDICARE PART B [id number] 09/21/1993-Pres ent [address] [address] [place] [address] Medicare MEDICARE [place] MEDICARE PART B [id number] 09/21/1993-Pres ent [address] [address] [place] [address] Medicare MEDICARE [place] MEDICARE PART B [id number] 09/21/1993-Pres ent [address] [address] [place] [address] Medicare MEDICARE [place] MEDICARE PART B [id number] 09/21/1993-Pres ent [address] [address] [place] [address] Medicare MEDICARE [place] MEDICARE PART B [id number] 09/21/1993-Pres ent [address] [address] [place] [address] Medicare MEDICARE [place] MEDICARE PART B [id number] 09/21/1993-Pres ent [address] [address] [place] [address] [place] [id number] Effective for all dates [address] [address] [place] [address] Medicaid [place] Care Teams Communications Representative Relationship Specialty Start Date End Date Mervin Hawk MD [address] [place] [id number] PCP - General 11/04/18
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
--- OUTSIDE RECORDS SUMMARY | 2024-05-03 10:59 | XMS_ITS | Encounter Summary ---
Author Organization [facility] Address [address] [place] [address] [place] [address] Care Team Providers Care Mobile Equipment Operator Name Role Phone Mervin Hawk MD Primary Care Provider [phone] Encounter Details Date Type Department Care Team (Late st Contact Info) Description 09/15/2018 Lab Requisition [facility] [address] [place] [address] Tegan Payton MD [address] [place], [place] [id number] Social History Tobacco Use Types Packs/Day Years Used Date Smoking Tobacco: Never Assessed Sex and Gender Information Value Date Recorded Sex Assigned at Not on file Gender Identity Not on file Sexual Orientation Not on file documented as of this encounter Plan of Treatment Not on file documented as of this encounter Procedures Procedure Name Priority Date/Time Associated Diagnosis Comments BONE MARROW BIOPSY (STL) Routine 09/15/2018 8:00 AM CDT documented in this encounter Results * BONE MARROW BIOPSY (STL) (09/15/2018 8:00 AM CDT) Case Report Bone Marrow Patholog y Report Case: [id number] Authorizing Provider: Tegan Payton MD Collected: 09/15/2018 08:00 AM Pathologist: Ju Mcneal MD Received: 09/15/2018 04:13 PM Specimens: A) - Bone Marrow Core, [id number] B) - Bone Marrow Core, BN19-30 C) - Blood Peripheral, [id number] D) - Bone Marrow Aspirate, BN1909/16/2018 4:39 PM CDT [facility] Final Diagnosis Bone marrow, aspirate, clot section, and core biopsy: - Normocellular marrow with maturing trilineage hematopoiesis. - Decreased storage iron. - No evidence of lymphoma or high grade myeloid neoplasm. - See microscopic description. Peripheral blood smear: - Macrocytic anemia. - See microscopic description. 2018 4:[address] [facility] Comment In summary, the bone marrow is normocellular for age with maturing trilineage hematopoiesis and no evidence of lymphoma or high grade myeloid neoplasm. Clinical correlation is recommended. KR 2018 4:[address] [facility] Peripheral Smear Description CBC Data: [...] normal. Platelet morphology: normal. 2018 4:[address] [facility] Bone Marrow Aspirate Differential count (200 cells): 63% maturing myeloid precursors, 26.5% erythroid progenitors, 2% monocytes, 5.5% eosinophils, and 3% lymphocytes. Specimen quality: adequate. Spicules: present. Trilineage Hematopoiesis: present. Myeloid:Erythroid ratio: 2.7:1. Myeloid Maturation: normal. Erythroid Maturation: normal. Megakaryocyte morphology: normal nuclear lobation. Storage iron (by special stain): decreased. Sideroblastic iron (by special stain): Decreased. No ring sideroblasts. 2018 4:[address] [facility] Bone Marrow Core Biopsy and [...] performed on the core biopsy in the [facility] Department of Pathology, with appropriately reactive control and is negative for tumor cells. 2018 4:[address] [facility] Flow Cytometry Summary Concurrent flow cytometric analysis ([id number]) demonstrates no evidence of non-Hodgkin lymphoma or high grade myeloid neoplasm. 2018 4:[address] [facility] Clinical History 47 year old man with recent diagnosis of classical Hodgkin lymphoma. Staging bone marrow biopsy. 2018 4:[address] [facility] Materials Received Received are 19 slides and 2 blocks labeled as [id number] along with the outside pathology report. The materials originate from [facility], [address] [place] [address]. All materials are returned to the referring institution, along with a copy of our final report. 2018 4:[address] [facility] Disclaimer The performance characteristics of all immunohistochemical and indirect immunofluorescence stains (if any) cited in this report were determined by the Histopathology Laboratory of [facility]. Some of these tests were developed by [...] the attending (teaching) pathologist. 2018 4:[address] [facility] Embedded Images 2018 4:[address] [facility] Pathology/Cytology SPECIMEN FROM BONE MARROW OBTAINED BY ASPIRATION / Unknown 09/15/2018 8:00 AM CDT 09/15/2018 4:13 PM T Miscellaneous samples (specimen) BONE MARROW SPECIMEN / Unknown 09/15/2018 8:00 AM CDT 09/15/2018 4:13 PM CDT Miscellaneous samples (specimen) PERIPHERAL BLOOD / Unknown 09/15/2018 8:00 AM CDT 09/15/2018 4:13 PM CDT Miscellaneous samples (specimen) SPECIMEN FROM BONE MARROW OBTAINED BY ASPIRATION / Unknown 09/15/2018 8:00 AM CDT 09/15/2018 4:13 PM CDT Tegan Payton MD LAB - PATHOLOGY/CYTO LOGY ORDERABLES Performing Organization Address City/State/[facility] Co de Phone Number [facility] [address] [phone] documented in this encounter Visit Diagnoses Not on filedocumented in this encounter Additional Health Concerns Infection Onset Date Last Indicated Resolved Time COVID-19 Under Investigation 08/31/2019 08/31/2019 09/01/2019 6:41 PM CDT documented as of this encounter Care Teams Mobile Equipment Operator Relationship Specialty Start Date End Date Mervin Hawk MD [address] [place] [address] PCP - General 11/04/18 documented as of this encounter
--- OUTSIDE RECORDS SUMMARY | 2024-05-03 10:59 | XMS_ITS | Encounter Summary ---
Author Organization [facility] Address [address] [place] [address] [place] [address] Care Team Providers Care Planer Feeder Name Role Phone Mervin Hawk MD Primary Care Provider [phone] Encounter Details Date Type Department Care Team (Late st Contact Info) Description 09/14/2018 Lab Requisition [facility] [address] [place] [address] Tegan Payton MD [address] [place], [place] [id number] Social History Tobacco Use Types Packs/Day Years Used Date Smoking Tobacco: Never Assessed Sex and Gender Information Value Date Recorded Sex Assigned at Not on file Gender Identity Not on file Sexual Orientation Not on file documented as of this encounter Plan of Treatment Not on file documented as of this encounter Procedures Procedure Name Priority Date/Time Associated Diagnosis Comments PATHOLOGY TISSUE Routine 08/27/2018 8:00 AM CDT documented in this encounter Results * PATHOLOGY TISSUE (08/27/2018 8:00 AM CDT) Case Report Surgical Pathology Report Case: [id number] Authorizing Provider: Tegan Payton MD Collected: 08/27/2018 08:00 AM Pathologist: Ju Mcneal MD Received: 09/14/2018 03:40 PM Specimen: Lymph Node Biopsy, [id number] 09/14/2018 4:15 PM CDT [facility] Final Diagnosis Lymph node, right neck, needle core biopsy ([id number], 08/27/2018): - Classical Hodgkin lymphoma. - See description. 09/14/2018 4:15 PM [facility] Microscopic Description and Comment Review [...] correlation is required. KR 09/14/2018 4:15 PM [facility] Clinical History Cervical lymphadenopathy. 09/14/2018 4:15 PM [facility] Materials Received Received are 16 slides labeled as [id number] along with the outside pathology report. The [place] [address] and are sent from [facility], [place] [address]. All materials are returned to the referring institution, along with a copy of our final report. 09/14/2018 4:15 PM [facility] Disclaimer The performance characteristics of all immunohistochemical and indirect immunofluorescence stains (if any) cited in this report were determined by the Histopathology Laboratory of [facility]. Some of these tests were developed by [...] the attending (teaching) pathologist. 09/14/2018 4:15 PM CDT [facility] Embedded Images 09/14/2018 4:15 PM CDT [facility] Pathology/Cytolo gy BIOPSY OF LYMPH NODE / Unknown 08/27/2018 8:00 AM CDT 09/14/2018 3:40 PM CDT Tegan Payton MD LAB - PATHOLOGY/CYTO LOGY ORDERABLES Performing Organization Address City/State/[facility] Co de Phone Number [facility] [address] [phone] documented in this encounter Visit Diagnoses Not on filedocumented in this encounter Additional Health Concerns Infection Onset Date Last Indicated Resolved Time COVID-19 Under Investigation 08/31/2019 08/31/2019 09/01/2019 6:41 PM CDT documented as of this encounter Care Teams Planer Feeder Relationship Specialty Start Date End Date Mervin Hawk MD [address] [place] [address] PCP - General 11/04/18 documented as of this encounter
--- OUTSIDE RECORDS SUMMARY | 2024-05-03 10:59 | XMS_ITS | Continuity of Care Document ---
Author Organization [facility] Address [address] [id number] Phone Care Team Providers Care Generation Manager Name Role Phone Mervin Hawk MD Unavailable Unavailable Allergies, Adverse Reactions, Alerts Substance Reaction Status Criticality No Known Allergies Active No Inform ation Medications Medication Instructions Dosage Effective Dates (start - stop) Status Comments KLONOPIN 0.5 MG TABLET TAKE 1/2 TABLET B Y MOUTH IN THE MORNING AND 1 TABLET AT 4PM - Active allopurinol 100 mg tablet take 1 tablet by oral route every day 100 MG - Active Paxil 20 mg tablet 1 tab po at hs - Ac tive Eliquis 5 mg tablet take 1 tablet by oral route 2 times every day 5 MG - Active sodium chloride 1 gram tablet 1 tab po bid - Active Januvia 100 mg tablet take 1 tablet by oral route every day 100 MG - Active glipizide ER 10 mg tablet, extended release 24 hr take 2 tablet by oral route in the morning - Active METFORMIN 1000MG... GIVE ONE TABLET BY MOUTH TWICE DAILY - Active BENZTROPINE 1MG.... GIVE 1/2 TABLET BY MOUTH DAILY AT BEDTIME - Active Kaopectate (bismuth subsalicylate) 262 mg/15 mL oral suspension - Active TAKE 2 TO 4 TABLESPOONS ONCE DAILY NEEDED FOR DIARRHEA. Benadryl 25 mg capsule take 3 capsule by oral route every 3 - 5 hours as needed 75 MG - Active TAKE ONE EVERY 8 HOURS NEEDED FOR ITCHING. triamcinolone acetonide 0.1 % topical cream apply cream to abd. rash bid prn - Active prochlorperazine maleate 10 mg tablet 1 tab po q6hrs prn for nausea - Active ondansetron HCl 8 mg tablet take 1 tablet by oral route 2 times every day 8 MG - Active MAG-AL 200 mg-200 mg/5 mL oral suspension 30cc (liq) po q6hrs prn - Active Tylenol 325 mg tablet 2 tabs po q4hrs prn for pain or elevated temp - Active Risperdal 4 mg tablet take 1 tab po at hs - Active Depakote ER 250 mg tablet,extended release 3 tab po bid - Active All Day Pain Relief 220 mg tablet 2 tab in am and hs - Active famotidine 40 mg tablet take 1/2 tab (20mg) po bid - Active Fish Oil 1,000 mg (120 mg-180 mg) capsule 1 cap daily - Active Procedures Procedure Date DOMICIL/R-HOME VISIT EST [facility] OFFICE/OUTPATIENT VISIT, [facility] Advance Directives Directive Yes / No Effective Date File Name No Information Encounters Encounter Description Practice Location Reason(s) For Visit Diagnoses Date Provider Providers Copied on Encounter [facility], [address] [place] [address], [facility], tel:[phone] [facility] No Information 2 Carine Jeffries. [address] [place] [address], [facility], . tel: [phone] [facility], [address] [place] [address], [facility], tel:[phone] [facility] No Information 2 Carine Jeffries. [address] [place] [address], [address], [place]. tel: [phone] [facility], [address] [place] [address], [facility], tel:[phone] [facility] No Information 2 Escobar Gary. [address] [place] [address], [facility], [place]. tel: [phone] DOMICIL/R-HO ME VISIT EST PAT [facility], [address] [place] [address], [facility], [place] tel:[phone] [facility] HPI (chief complaint) Mixed hyperlipidemiaType 2 diabetes mellitus without complicationsEpilep sy, unspecified, not intractable, without status epilepticusSchizoaf fective disorder, bipolar typeMajor depressive disorder, recurrent, unspecified 2 Carine Jeffries. [address] [place] [address], [facility], [place]. tel: [phone] [facility], [address] [place] [address], [facility], [place] tel:[phone] [place] [address] No Information 2 Carine Jeffries. [address] [place] [address], [facility], [place]. tel: [phone] [facility], [address] [place] [address], [facility], [place] tel:[phone] [place] [address] No Information 2 Carine Jeffries. [address] [place] [address], [facility], [place]. tel: [phone] [facility], [address] [place] [address], [facility], [place] tel: [phone] [place] [address] No Information 2 Carine Jeffries. [address] [place] [address], [facility], [place]. tel: [phone] [facility], [address] [place] [address], [facility], [place] tel: [phone] [place] [address] No Information 2 Carine Jeffries. [address] [place] [address], [facility], [place]. tel: [phone] [facility], [address] [place] [address], [facility], [place] tel: [phone] [place] [address] No Information 2 Carine Jeffries. [address] [place] [address], [address], [place]. tel: [phone] [facility], [address] [place] [address], [facility], tel: [phone] [place] [address] No Information 2 Carine Jeffries. [address] [place] [address], [facility], [place]. tel: [phone] [facility], [address] [place] [address], [facility], tel: [phone] [place] [address] No Information 2 Carine Jeffries. [address] [place] [address], [facility], [place]. tel: [phone] [facility], [address] [place] [address], [facility], [place] tel: [phone] [place] [address] 6 Month Follow Up at [facility] (chief complaint) Type 2 diabetes mellitus without complicationsEpilep sy, unspecified, not intractable, without status epilepticusMixed hyperlipidemiaGastr o-esophageal reflux disease without esophagitisGout, unspecifiedMajor depressive disorder, recurrent, unspecified 2 Carine Jeffries. [address] [place] [address], [facility], [place]. tel: [phone] OFFICE/OUTPA TIENT VISIT, [facility], [address] [place] [address], [facility], tel: [phone] [facility] est. care (chief complaint) Type 2 diabetes mellitus without complicationsBody mass index [BMI] 32.0-32.9, adult 1 Carine Jeffries. [address] [place] [address], [facility], [place]. tel: [phone] [facility], [address] [place] [address], [facility], [place] tel: [phone] [facility] No Information 1 Carine Jeffries. [address] [place] [address], [facility], [place]. tel: [phone] Family History Family Member Type Diagnosis Age At Onset No Information Immunizations Vaccine Date Status Comments Influenza injectable quad admin istered Source: Other Registry SARS-COV-2 (COVID-19) vaccin e, mRNA, spike protein, LNP, preservative free, 100 mcg/0.5mL dose administered Source: Other R egistry SARS-COV-2 (COVID-19) vaccin e, mRNA, spike protein, LNP, preservative free, 30 mcg/0.3mL dose administered Source: Other Re gistry Payers Payer name Insurance type Covered libertarian ID Authormarena tameka(s) [facility] [id number] Social History Type Description Quantity Date Captured Comments Alcohol Use Details Unknown Caffeine Use Details Unknown Tobacco Use Status Smoking Status No Information Sex Male Chief Complaint And Reason For Visit No Information Reason For Referral Reason For Referral No Information Plan Of Treatment Date Type Action Status Future Order: Lab Order A1C ([id number]), Se nt on: Sent Future Order: Lab Order CMP ([id number]), Se nt on: Sent Future Order: Lab Order CBC W/ D iff ([id number]), Sent on: Sent Future Order: Lab Order LIPID PA ADRIANA ([id number]), Sent on: Sent Future Order: Lab Order VITAMIN D (25) ([id number]), Sent on: Sent Future Order: Lab Order URIC ACID ([id number]), Sent on: Sent History Of Present Illness Encounter Date Complaint History Of Prese nt Illness HPI No new concerns or complaints from patient or staff.Eating and sleeping well.Medication list reviewed 6 [facility] is doing well.No new concerns or complaints by the patient or staffEating well. Sleeping well. est. care Patient is here today to get established with my new practice. He is brought in by his mother, this is the first time of had a chance to meet her. He also brings in his blood sugar log from the [facility].He is here today to discuss his blood sugar results and overall control. His blood sugar log shows blood sugars anywhere from a low of 152 to a high of 390. These are from all different types of times a day. Patient says sometimes they check it before and sometimes after meals. He had some blood work done in January which showed an A1c of 8.8%. He denies any increased thirst or urination. He denies any symptoms of hypoglycemia. He denies any unusual chest pain or shortness of breath.He has been trying to lose some weight and is recently switched to a 1200-calorie a day diet. This is also an ADA diet.Patient has no other new complaints at this time. Functional Status Date Functional Assessmen t No Information Instructions Date Instruction Additional Infor russell Continue current med ications and treatment plan Related to Mixed hyperlipidemia Continue current med icationsLabs: CMP, HgbA1c, CBC, Uric Acid, Vit D, LipidsFollow up 6 months, sooner as neededFollow up with mental health services as scheduled Follow up with specialist as scheduled Related to Type 2 diabetes mellitus without complications Patient is continue his low calorie ADA diet try to lose weight.We will continue his current diabetes medication.They do not have to check his fingerstick blood sugar frequently, they can just do it when he is either symptomatic or just wants to see what it is.We will plan on rechecking his A1c in June 2021 along with a CMP CBC and lipid panel.If he is able to get his A1c down around 7 then we will just continue on with his current therapy. If A1c remains above 8% we will then plan on adding a bedtime dose of Lantus insulin if the patient agrees. Related to Type 2 diabetes mellitus without complications Assessments Type Assessment Date No Information Patient Care Teams Name Effective Dates (start - stop) Status Members No Information
--- OUTSIDE RECORDS SUMMARY | 2024-05-03 10:59 | XMS_ITS ---
Author Organization [facility] Address [address] [place] [phone] Phone Care Team Providers Care Stitch Welder Name Role Phone Baldev Espinal MD Unavailable [phone] Vu Beebe MD Unavailable [phone] Luis Eduardo Balderas MD Primary Care Provider [phone] Active Problems Problem Noted Date Diagnosed Date [...] Enlarged lymph nodes 09/09/2018 Right leg pain Current Treatment and Therapy Plans No current plan information found. Past Treatment and Therapy Plans ONCOLOGY SUPPORTIVE CARE Plan Name Start Date Discontinue Date Treatment Medications Discontinue Reason Plan Provider Cycles SUPPORT - ONPRO KIT NEULASTA - 3 WEEK 10/08/2018 12/06/2021 No medications scheduled. Therapy Complete Brian Kim MD 7 of 7 cycles started ONCOLOGY TREATMENT Plan Name Start Date Discontinue Date Treatment Medications Discontinue Reason Plan Provider Cycles HODGKINS LYMPHOMA - ABVD 9 10/14/2023 bleomycin (BLEOCIN)dacarbazine (DTIC) chemo infusionDOXOrubicin (ADRIAMYCIN)vinBLASti ne (VELBAN) chemo infusionZZ EXTEMPORANEOUS TEMPLATE Plan Clean Up Brian Kim MD 6 of 6 cycles started Lifetime Dose Tracking * Chemical Lifetime Dose Automatic Entry Manual Entr y Doxorubicin 299.917 mg/m2 (603.8 mg) 299.917 mg/m2 (6 03.8 mg) 0 mg/m2 (0 mg) Bleomycin 101.5 Units 101.5 Units 0 Units Resolved Problems Problem Noted Date Diagnosed Date [...]
--- OUTSIDE RECORDS SUMMARY | 2024-05-03 10:59 | XMS_ITS | Referral Summary ---
Author Organization [facility] Address [address] [facility] [place] [address] Care Team Providers Care Radio Despatcher Name Role Phone Mervin Hawk MD Primary Care Provider [phone] Source Comments [facility],non-[facility] Affiliates and Associated Physician Practices is amultiple site organization consisting of ambulatory clinics and hospital sitesin [place], [place], [place]. This disclosure is being madepursuant to the Care Everywhere program and may not contain all information available regarding this patient. Last updated 17.[facility] Allergies Active Allergy Reactions Criticality Noted Date Comments Haloperidol Other 11/30/2018 Patient feels violent when on halodol Social History Tobacco Use Types Packs/Day Years [...] 11/04/2018 1:39 PM CDT Plan of Treatment Not on file Insurance Payer Benefit Plan / Group Subscriber ID Effective Dates Phone Address Type MEDICARE MEDICARE PART A AND B [id number] Effective for all dates [address] [place] [address] Medicare MEDICARE W[place] MEDICARE PART B [id number] 01/08/2022-Pr esent [address] [address] [place] [address] Medicare MEDICAID - OUT OF STATE [place] PUBLIC AID [id number] 01/08/2022-Pr esent [address] [address] [place] [address] Medicaid MEDICARE [place] MEDICARE PART B [id number] 01/08/2022-Pr esent [address] [address] [place] [address] Medicare MEDICAID - OUT OF [facility] MEDICAID [facility] PUBLIC AID [id number] 01/08/2022-Pr esent [address] [address] [place] [address] Medicaid MEDICARE [place] MEDICARE PART B [id number] 01/08/2022-Pr esent [address] [address] [place] [address] Medicare MEDICAID - OUT OF [facility] MEDICAID [facility] PUBLIC AID [id number] 01/08/2022-Pr esent [address] [address] [place] [address] Medicaid MEDICARE [place] MEDICARE PART B [id number] 01/08/2022-Pr esent [address] [address] [place] [address] Medicare MEDICAID - OUT OF STATE MEDICAID [facility] PUBLIC AID [id number] 01/08/2022-Pr esent [address] [address] [place] [address] Medicaid MEDICARE [place] MEDICARE PART B [id number] 01/08/2022-Pr esent [address] [address] [place] [address] Medicare MEDICAID - OUT OF STATE MEDICAID [facility] PUBLIC AID [id number] 01/08/2022-Pr esent [address] [address] [place] [address] Medicaid MEDICARE [place] MEDICARE PART B [id number] 01/08/2022-Pr esent [address] [address] [place] [address] Medicare MEDICAID - OUT OF STATE MEDICAID [facility] PUBLIC AID [id number] 01/08/2022-Pr esent [address] [address] [place] [address] Medicaid MEDICARE [place] MEDICARE PART B [id number] 01/08/2022-Pr esent [address] [address] [place] [address] Medicare MEDICAID - OUT OF STATE MEDICAID [facility] PUBLIC AID [id number] 01/08/2022-Pr esent [address] [address] [place] [address] Medicaid MEDICARE W[place] MEDICARE PART B [id number] 09/21/1993-Pres ent [address] [address] [place] [address] Medicare MEDICAID - OUT OF STATE MEDICAID [facility] PUBLIC AID [id number] Effective for all dates [address] [address] [place] [address] Medicaid MEDICARE W[place] MEDICARE PART B [id number] 09/21/1993-Pres ent [address] [address] [place] [address] Medicare MEDICAID - OUT OF STATE MEDICAID [facility] PUBLIC AID [id number] Effective for all dates [address] [address] [place] [address] Medicaid MEDICARE [place] MEDICARE PART B [id number] 09/21/1993-Pres ent [address] [address] [place] [address] Medicare MEDICAID - OUT OF STATE MEDICAID [facility] PUBLIC AID [id number] Effective for all dates [address] [address] [place] [address] Medicaid MEDICARE [place] MEDICARE PART B [id number] 09/21/1993-Pres ent [address] [address] [place] [address] Medicare MEDICAID - OUT OF STATE MEDICAID [facility] PUBLIC AID [id number] Effective for all dates [address] [address] [place] [address] Medicaid MEDICARE [place] MEDICARE PART B [id number] 09/21/1993-Pres ent [address] [address] [place] [address] Medicare MEDICAID - OUT OF STATE MEDICAID [facility] PUBLIC AID [id number] Effective for all dates [address] [address] [place] [address] Medicaid MEDICARE [place] MEDICARE PART B [id number] 09/21/1993-Pres ent [address] [address] [place] [address] Medicare MEDICAID - OUT OF STATE MEDICAID [facility] PUBLIC AID [id number] Effective for all dates [address] [address] [place] [address] Medicaid MEDICARE WPS MEDICARE PART B [id number] 09/21/1993-Pres ent [address] [address] [place] [address] Medicare MEDICAID - OUT OF STATE MEDICAID [facility] PUBLIC AID [id number] Effective for all dates [address] [address] [place] [address] Medicaid MEDICARE W[place] MEDICARE PART B [id number] 09/21/1993-Pres ent [address] [address] [place] [address] Medicare MEDICAID - OUT OF STATE MEDICAID [facility] PUBLIC AID [id number] Effective for all dates [address] [address] [place] [address] Medicaid MEDICARE W[place] MEDICARE PART B [id number] 09/21/1993-Pres ent [address] [address] [place] [address] Medicare MEDICAID - OUT OF STATE MEDICAID [facility] PUBLIC AID [id number] Effective for all dates [address] [address] [place] [address] Medicaid MEDICARE [place] MEDICARE PART B [id number] 09/21/1993-Pres ent [address] [address] [place] [address] Medicare MEDICAID - OUT OF STATE MEDICAID [facility] PUBLIC AID [id number] Effective for all dates [address] [address] [place] [address] Medicaid MEDICARE WPS MEDICARE PART B [id number] 09/21/1993-Pres ent [address] [address] [place] [address] Medicare MEDICAID - OUT OF STATE MEDICAID [facility] PUBLIC AID [id number] Effective for all dates [address] [address] [place] [address] Medicaid MEDICARE WPS MEDICARE PART B [id number] 09/21/1993-Pres ent [address] [address] [place] [address] Medicare MEDICAID - OUT OF STATE MEDICAID [facility] PUBLIC AID [id number] Effective for all dates [address] [address] [place] [address] Medicaid MEDICARE W[place] MEDICARE PART B [id number] 09/21/1993-Pres ent [address] [address] [place] [address] Medicare MEDICAID - OUT OF STATE MEDICAID [facility] PUBLIC AID [id number] Effective for all dates [address] [address] [place] [address] Medicaid MEDICARE [place] MEDICARE PART B [id number] 09/21/1993-Pres ent [address] [address] [place] [address] Medicare MEDICAID - OUT OF STATE MEDICAID [facility] PUBLIC AID [id number] Effective for all dates [address] [address] [place] [address] Medicaid MEDICARE WPS MEDICARE PART B [id number] 09/21/1993-Pres ent [address] [address] [place] [address] Medicare MEDICAID - OUT OF STATE MEDICAID [facility] PUBLIC AID [id number] Effective for all dates [address] [address] [place] [address] Medicaid MEDICARE WPS MEDICARE PART B [id number] 09/21/1993-Pres ent [address] [address] [place] [address] Medicare MEDICAID - OUT OF STATE MEDICAID [facility] PUBLIC AID [id number] Effective for all dates [address] [address] [place] [address] Medicaid MEDICARE WPS MEDICARE PART B [id number] 09/21/1993-Pres ent [address] [address] [place] [address] Medicare MEDICAID - OUT OF STATE MEDICAID [facility] PUBLIC AID [id number] Effective for all dates [address] [address] [place] [address] Medicaid MEDICARE WPS MEDICARE PART B [id number] 09/21/1993-Pres ent [address] [address] [place] [address] Medicare MEDICAID - OUT OF STATE MEDICAID [facility] PUBLIC AID [id number] Effective for all dates [address] [address] [place] [address] Medicaid MEDICARE WPS MEDICARE PART B [id number] 09/21/1993-Pres ent [address] [address] [place] [address] Medicare MEDICAID - OUT OF STATE MEDICAID [facility] PUBLIC AID [id number] Effective for all dates [address] [address] [place] [address] Medicaid MEDICARE WPS MEDICARE PART B [id number] 09/21/1993-Pres ent [address] [address] [place] [address] Medicare MEDICAID - OUT OF STATE MEDICAID [facility] PUBLIC AID [id number] Effective for all dates [address] [address] [place] [address] Medicaid MEDICARE WPS MEDICARE PART B [id number] 09/21/1993-Pres ent [address] [address] [place] [address] Medicare MEDICAID - OUT OF STATE MEDICAID [facility] PUBLIC AID [id number] Effective for all dates [address] [address] [place] [address] Medicaid MEDICARE WPS MEDICARE PART B [id number] 09/21/1993-Pres ent [address] [address] [place] [address] Medicare MEDICAID - OUT OF STATE MEDICAID [facility] PUBLIC AID [id number] Effective for all dates [address] [address] [place] [address] Medicaid MEDICARE WPS MEDICARE PART B [id number] 09/21/1993-Pres ent [address] [address] [place] [address] Medicare MEDICAID - OUT OF STATE MEDICAID [facility] PUBLIC AID [id number] Effective for all dates [address] [address] [place] [address] Medicaid MEDICARE WPS MEDICARE PART B [id number] 09/21/1993-Pres ent [address] [address] [place] [address] Medicare MEDICAID - OUT OF STATE MEDICAID [facility] PUBLIC AID [id number] Effective for all dates [address] [address] [place] [address] Medicaid MEDICARE WPS MEDICARE PART B [id number] 09/21/1993-Pres ent [address] [address] [place] [address] Medicare MEDICAID - OUT OF STATE MEDICAID [facility] PUBLIC AID [id number] Effective for all dates [address] [address] [place] [address] Medicaid MEDICARE WPS MEDICARE PART B [id number] 09/21/1993-Pres ent [address] [address] [place] [address] Medicare MEDICAID - OUT OF STATE MEDICAID [facility] PUBLIC AID [id number] Effective for all dates [address] [address] [place] [address] Medicaid MEDICARE WPS MEDICARE PART B [id number] 09/21/1993-Pres ent [address] [address] [place] [address] Medicare MEDICAID - OUT OF STATE MEDICAID [facility] PUBLIC AID [id number] Effective for all dates [address] [address] [place] [address] Medicaid MEDICARE WPS MEDICARE PART B [id number] 09/21/1993-Pres ent [address] [address] [place] [address] Medicare MEDICAID - OUT OF STATE MEDICAID [facility] PUBLIC AID [id number] Effective for all dates [address] [address] [place] [address] Medicaid MEDICARE WPS MEDICARE PART B [id number] 09/21/1993-Pres ent [address] [address] [place] [address] Medicare MEDICAID - OUT OF STATE MEDICAID [facility] PUBLIC AID [id number] Effective for all dates [address] [address] [place] [address] Medicaid MEDICARE WPS MEDICARE PART B [id number] 09/21/1993-Pres ent [address] [address] [place] [address] Medicare MEDICAID - OUT OF STATE MEDICAID [facility] PUBLIC AID [id number] Effective for all dates [address] [address] [place] [address] Medicaid MEDICARE WPS MEDICARE PART B [id number] 09/21/1993-Pres ent [address] [address] [place] [address] Medicare MEDICAID - OUT OF STATE MEDICAID [facility] PUBLIC AID [id number] Effective for all dates [address] [address] [place] [address] Medicaid MEDICARE WPS MEDICARE PART B [id number] 09/21/1993-Pres ent [address] [address] [place] [address] Medicare MEDICAID - OUT OF [facility] MEDICAID [facility] PUBLIC AID [id number] Effective for all dates [address] [address] [place] [address] Medicaid MEDICARE WPS MEDICARE PART B [id number] 09/21/1993-Pres ent [address] [address] [place] [address] Medicare MEDICAID - OUT OF STATE MEDICAID [facility] PUBLIC AID [id number] Effective for all dates [address] [address] [place] [address] Medicaid MEDICARE WPS MEDICARE PART B [id number] 09/21/1993-Pres ent [address] [address] [place] [address] Medicare MEDICAID - OUT OF [facility] MEDICAID [facility] PUBLIC AID [id number] Effective for all dates [address] [address] [place] [address] Medicaid MEDICARE WPS MEDICARE PART B [id number] 09/21/1993-Pres ent [address] [address] [place] [address] Medicare MEDICAID - OUT OF STATE MEDICAID [facility] PUBLIC AID [id number] Effective for all dates [address] [address] [place] [address] Medicaid MEDICARE MEDICARE PART A AND B [id number] 09/21/1993-Pres ent [address] [place] [address] Medicare MEDICARE WPS MEDICARE PART B [id number] 09/21/1993-Pres ent [address] [address] [place] [address] Medicare MEDICAID - OUT OF STATE MEDICAID [facility] PUBLIC AID [id number] Effective for all dates [address] [address] [place] [address] Medicaid MEDICARE WPS MEDICARE PART B [id number] 09/21/1993-Pres ent [address] [address] [place] [address] Medicare MEDICAID - OUT OF [facility] MEDICAID - [place] PUBLIC AID [id number] Effective for all dates [address] [address] [place] [address] Medicaid MEDICARE WPS MEDICARE PART B [id number] 09/21/1993-Pres ent [address] [address] [place] [address] Medicare MEDICARE WPS MEDICARE PART B [id number] 09/21/1993-Pres ent [address] [address] [place] [address] Medicare MEDICARE WPS MEDICARE PART B [id number] 09/21/1993-Pres ent [address] [address] [place] [address] Medicare MEDICARE [place] MEDICARE PART B [id number] 09/21/1993-Pres ent [address] [address] [place] [address] Medicare MEDICARE W[place] MEDICARE PART B [id number] 09/21/1993-Pres ent [address] [address] [place] [address] Medicare MEDICARE [place] MEDICARE PART B [id number] 09/21/1993-Pres ent [address] [address] [place] [address] Medicare MEDICARE WPS MEDICARE PART B [id number] 09/21/1993-Pres ent [address] [address] [place] [address] Medicare MEDICAID - [place] - [place] [id number] Effective for all dates [address] [address] [place] [address] Medicaid [place] Care Teams Radio Despatcher Relationship Specialty Start Date End Date Mervin Hawk MD [address] [place] [address] PCP - General 11/04/18
[2024-05-03 11:37] VITALS: BP 104/82; PULSE 77; RESP 20; TEMP 36.7; O2SAT 99
--- OUTSIDE RECORDS SUMMARY | 2024-05-03 11:49 | XMS_ITS | Encounter Summary ---
Author Organization [facility] Address [facility] [facility] [place] [address] Care Team Providers Care Etymology Teacher Name Role Phone Mervin Hawk MD Primary Care Provider [phone] Encounter Details Date Type Department Care Team (Late st Contact Info) Description 09/14/2018 Lab Requisition [facility] Care Pathology Lab [address] [place] [address] Tegan Payton MD [address] [place], [place] [id number] Hodgkin lymphoma (HCC) Social History Tobacco Use [...] AM CDT) Case Report Flow Cytometry Case: [id number] Authorizing Provider: Tegan Payton MD Collected: 09/14/2018 [...] flow cytometry specimen is reviewed for quality assurance monitor chassis purposes. In summary, the bone marrow specimen shows no evidence of a non-Hodgkin lymphoma or high grade myeloid neoplasm. Correlation with additional clinical information and the concurrent bone marrow biopsy specimen is required. KR 09/15/2018 9:15 AM [facility] Flow Cytometry Results Differential Result Comment Flow Cell Count /uL [id number] Total Viability % 100.0 Lymphocytes % 13 Dim CD45 Region % 4 Monocytes % 10 Granulocytes % 70 09/15/2018 9:15 AM [facility] Reason for test Hodgkin lymphoma 201.90 09/15/2018 9:15 AM [facility] Client Specimen ID # [id number] 09/15/2018 9:15 AM [facility] Number of markers 10 were performed. A Flow CD3 A Flow CD10 A Flow CD20 A Flow CD23 A Flow CD5 A Flow CD19 A Flow CD34 A Flow CD45 A [place]+CD19+ A Lambda+CD19+ 09/15/2018 9:15 AM [facility] Disclaimer Test performed at [facility], [address] [place] [address], [address]. *The established laboratory minimum viability is 70%. [...] complexity clinical testing. 09/15/2018 9:15 AM CDT [facility] Embedded Images 9:15 AM CDT [facility] Pathology/Cytolo gy BONE MARROW SPECIMEN / Unknown 09/14/2018 9:35 AM CDT 09/14/2018 4:15 PM CDT Tegan Payton MD LAB - PATHOLOGY/CYTO LOGY ORDERABLES Performing Organization Address City/State/[facility] Co de Phone Number [facility] [address] [phone] documented in this encounter Visit Diagnoses Diagnosis Hodgkin lymphoma (HCC) Hodgkin's disease, unspecified documented in this encounter Additional Health Concerns Infection Onset Date Last Indicated Resolved Time COVID-19 Under Investigation 08/31/2019 08/31/2019 09/01/2019 6:41 PM CDT documented as of this encounter Care Teams Etymology Teacher Relationship Specialty Start Date End Date Mervin Hawk MD [address] [place] [address] PCP - General 11/04/18 documented as of this encounter
--- OUTSIDE RECORDS SUMMARY | 2024-05-03 11:49 | XMS_ITS | Clinical Summary ---
Author Organization [facility] Address [address] [place] [address] Care Team Providers Care Chief Controller Station Name Role Phone Mervin Hawk MD Primary Care Provider [phone] Source Comments [facility],non-[facility] Affiliates and Associated Physician Practices is amultiple site organization consisting of ambulatory clinics and hospital sitesin [place], [place], [place] and [place]. This disclosure is being madepursuant to the Care Everywhere program and may not contain all information available regarding this patient. Last updated 17.[facility] Allergies Active Allergy Reactions Criticality Noted Date [...] Type MEDICARE MEDICARE PART A AND B [id number] Effective for all dates [address] [place] [address] Medicare MEDICARE WPS MEDICARE PART B [id number] 01/08/2022-Pr esent [address] [address] [place] [address] Medicare MEDICAID - OUT OF STATE MEDICAID - [facility] [id number] 01/08/2022-Pr esent [address] [address] [place] [address] Medicaid MEDICARE WPS MEDICARE PART B [id number] 01/08/2022-Pr esent [address] [address] [place] [address] Medicare MEDICAID - OUT OF STATE MEDICAID [facility] [id number] 01/08/2022-Pr esent [address] [address] [place] [address] Medicaid MEDICARE WPS MEDICARE PART B [id number] 01/08/2022-Pr esent [address] [address] [place] [address] Medicare MEDICAID - OUT OF STATE MEDICAID [facility] [id number] 01/08/2022-Pr esent [address] [address] [place] [address] Medicaid MEDICARE WPS MEDICARE PART B [id number] 01/08/2022-Pr esent [address] [address] [place] [address] Medicare MEDICAID - OUT OF [facility] MEDICAID [facility] [id number] 01/08/2022-Pr esent [address] [address] [place] [address] Medicaid MEDICARE WPS MEDICARE PART B [id number] 01/08/2022-Pr esent [address] [address] [place] [address] Medicare MEDICAID - OUT OF [facility] MEDICAID [facility] [id number] 01/08/2022-Pr esent [address] [address] [place] [address] Medicaid MEDICARE WPS MEDICARE PART B [id number] 01/08/2022-Pr esent [address] [address] [place] [address] Medicare MEDICAID - OUT OF [facility] MEDICAID [facility] [id number] 01/08/2022-Pr esent [address] [address] [place] [address] Medicaid MEDICARE WPS MEDICARE PART B [id number] 01/08/2022-Pr esent [address] [address] [place] [address] Medicare MEDICAID - OUT OF STATE MEDICAID [facility] [id number] 01/08/2022-Pr esent [address] [address] [place] [address] Medicaid MEDICARE WPS MEDICARE PART B [id number] 09/21/1993-Pres ent [address] [address] [place] [address] Medicare MEDICAID - OUT OF STATE MEDICAID [facility] [id number] Effective for all dates [address] [address] [place] [address] Medicaid MEDICARE WPS MEDICARE PART B [id number] 09/21/1993-Pres ent [address] [address] [place] [address] Medicare MEDICAID - OUT OF STATE MEDICAID [facility] [id number] Effective for all dates [address] [address] [place] [address] Medicaid MEDICARE WPS MEDICARE PART B [id number] 09/21/1993-Pres ent [address] [address] [place] [address] Medicare MEDICAID - OUT OF STATE MEDICAID [facility] [id number] Effective for all dates [address] [address] [place] [address] Medicaid MEDICARE WPS MEDICARE PART B [id number] 09/21/1993-Pres ent [address] [address] [place] [address] Medicare MEDICAID - OUT OF [facility] MEDICAID [facility] [id number] Effective for all dates [address] [address] [place] [address] Medicaid MEDICARE WPS MEDICARE PART B [id number] 09/21/1993-Pres ent [address] [address] [place] [address] Medicare MEDICAID - OUT OF STATE MEDICAID [facility] [id number] Effective for all dates [address] [address] [place] [address] Medicaid MEDICARE WPS MEDICARE PART B [id number] 09/21/1993-Pres ent [address] [address] [place] [address] Medicare MEDICAID - OUT OF [facility] MEDICAID [facility] [id number] Effective for all dates [address] [address] [place] [address] Medicaid MEDICARE WPS MEDICARE PART B [id number] 09/21/1993-Pres ent [address] [address] [place] [address] Medicare MEDICAID - OUT OF STATE MEDICAID [facility] [id number] Effective for all dates [address] [address] [place] [address] Medicaid MEDICARE WPS MEDICARE PART B [id number] 09/21/1993-Pres ent [address] [address] [place] [address] Medicare MEDICAID - OUT OF STATE MEDICAID [facility] [id number] Effective for all dates [address] [address] [place] [address] Medicaid MEDICARE WPS MEDICARE PART B [id number] 09/21/1993-Pres ent [address] [address] [place] [address] Medicare MEDICAID - OUT OF STATE MEDICAID [facility] [id number] Effective for all dates [address] [address] [place] [address] Medicaid MEDICARE WPS MEDICARE PART B [id number] 09/21/1993-Pres ent [address] [address] [place] [address] Medicare MEDICAID - OUT OF STATE MEDICAID [facility] [id number] Effective for all dates [address] [address] [place] [address] Medicaid MEDICARE WPS MEDICARE PART B [id number] 09/21/1993-Pres ent [address] [address] [place] [address] Medicare MEDICAID - OUT OF STATE MEDICAID [facility] [id number] Effective for all dates [address] [address] [place] [address] Medicaid MEDICARE WPS MEDICARE PART B [id number] 09/21/1993-Pres ent [address] [address] [place] [address] Medicare MEDICAID - OUT OF STATE MEDICAID [facility] [id number] Effective for all dates [address] [address] [place] [address] Medicaid MEDICARE WPS MEDICARE PART B [id number] 09/21/1993-Pres ent [address] [address] [place] [address] Medicare MEDICAID - OUT OF STATE MEDICAID [facility] [id number] Effective for all dates [address] [address] [place] [address] Medicaid MEDICARE WPS MEDICARE PART B [id number] 09/21/1993-Pres ent [address] [address] [place] [address] Medicare MEDICAID - OUT OF STATE MEDICAID [facility] [id number] Effective for all dates [address] [address] [place] [address] Medicaid MEDICARE WPS MEDICARE PART B [id number] 09/21/1993-Pres ent [address] [address] [place] [address] Medicare MEDICAID - OUT OF STATE MEDICAID [facility] [id number] Effective for all dates [address] [address] [place] [address] Medicaid MEDICARE WPS MEDICARE PART B [id number] 09/21/1993-Pres ent [address] [address] [place] [address] Medicare MEDICAID - OUT OF STATE MEDICAID [facility] [id number] Effective for all dates [address] [address] [place] [address] Medicaid MEDICARE WPS MEDICARE PART B [id number] 09/21/1993-Pres ent [address] [address] [place] [address] Medicare MEDICAID - OUT OF STATE MEDICAID [facility] [id number] Effective for all dates [address] [address] [place] [address] Medicaid MEDICARE WPS MEDICARE PART B [id number] 09/21/1993-Pres ent [address] [address] [place] [address] Medicare MEDICAID - OUT OF STATE MEDICAID [facility] [id number] Effective for all dates [address] [address] [place] [address] Medicaid MEDICARE WPS MEDICARE PART B [id number] 09/21/1993-Pres ent [address] [address] [place] [address] Medicare MEDICAID - OUT OF [facility] MEDICAID [facility] [id number] Effective for all dates [address] [address] [place] [address] Medicaid MEDICARE WPS MEDICARE PART B [id number] 09/21/1993-Pres ent [address] [address] [place] [address] Medicare MEDICAID - OUT OF STATE MEDICAID [facility] [id number] Effective for all dates [address] [address] [place] [address] Medicaid MEDICARE WPS MEDICARE PART B [id number] 09/21/1993-Pres ent [address] [address] [place] [address] Medicare MEDICAID - OUT OF STATE MEDICAID - [place] PUBLIC [facility] [id number] Effective for all dates [address] [address] [place] [address] Medicaid MEDICARE WPS MEDICARE PART B [id number] 09/21/1993-Pres ent [address] [address] [place] [address] Medicare MEDICAID - OUT OF STATE MEDICAID [facility] [id number] Effective for all dates [address] [address] [place] [address] Medicaid MEDICARE WPS MEDICARE PART B [id number] 09/21/1993-Pres ent [address] [address] [place] [address] Medicare MEDICAID - OUT OF STATE MEDICAID [facility] [id number] Effective for all dates [address] [address] [place] [address] Medicaid MEDICARE WPS MEDICARE PART B [id number] 09/21/1993-Pres ent [address] [address] [place] [address] Medicare MEDICAID - OUT OF STATE MEDICAID [facility] [id number] Effective for all dates [address] [address] [place] [address] Medicaid MEDICARE WPS MEDICARE PART B [id number] 09/21/1993-Pres ent [address] [address] [place] [address] Medicare MEDICAID - OUT OF STATE MEDICAID [facility] [id number] Effective for all dates [address] [address] [place] [address] Medicaid MEDICARE WPS MEDICARE PART B [id number] 09/21/1993-Pres ent [address] [address] [place] [address] Medicare MEDICAID - OUT OF STATE MEDICAID [facility] [id number] Effective for all dates [address] [address] [place] [address] Medicaid MEDICARE WPS MEDICARE PART B [id number] 09/21/1993-Pres ent [address] [address] [place] [address] Medicare MEDICAID - OUT OF STATE MEDICAID [facility] [id number] Effective for all dates [address] [address] [place] [address] Medicaid MEDICARE WPS MEDICARE PART B [id number] 09/21/1993-Pres ent [address] [address] [place] [address] Medicare MEDICAID - OUT OF STATE MEDICAID [facility] [id number] Effective for all dates [address] [address] [place] [address] Medicaid MEDICARE WPS MEDICARE PART B [id number] 09/21/1993-Pres ent [address] [address] [place] [address] Medicare MEDICAID - OUT OF STATE MEDICAID [facility] [id number] Effective for all dates [address] [address] [place] [address] Medicaid MEDICARE WPS MEDICARE PART B [id number] 09/21/1993-Pres ent [address] [address] [place] [address] Medicare MEDICAID - OUT OF STATE MEDICAID [facility] [id number] Effective for all dates [address] [address] [place] [address] Medicaid MEDICARE WPS MEDICARE PART B [id number] 09/21/1993-Pres ent [address] [address] [place] [address] Medicare MEDICAID - OUT OF STATE MEDICAID [facility] [id number] Effective for all dates [address] [address] [place] [address] Medicaid MEDICARE WPS MEDICARE PART B [id number] 09/21/1993-Pres ent [address] [address] [place] [address] Medicare MEDICAID - OUT OF STATE MEDICAID [facility] [id number] Effective for all dates [address] [address] [place] [address] Medicaid MEDICARE WPS MEDICARE PART B [id number] 09/21/1993-Pres ent [address] [address] [place] [address] Medicare MEDICAID - OUT OF STATE MEDICAID [facility] [id number] Effective for all dates [address] [address] [place] [address] Medicaid MEDICARE WPS MEDICARE PART B [id number] 09/21/1993-Pres ent [address] [address] [place] [address] Medicare MEDICAID - OUT OF STATE MEDICAID [facility] [id number] Effective for all dates [address] [address] [place] [address] Medicaid MEDICARE WPS MEDICARE PART B [id number] 09/21/1993-Pres ent [address] [address] [place] [address] Medicare MEDICAID - OUT OF STATE MEDICAID [facility] [id number] Effective for all dates [address] [address] [place] [address] Medicaid MEDICARE MEDICARE PART A AND B [id number] 09/21/1993-Pres ent [address] [place] [address] Medicare MEDICARE WPS MEDICARE PART B [id number] 09/21/1993-Pres ent [address] [address] [place] [address] Medicare MEDICAID - OUT OF STATE MEDICAID [facility] [id number] Effective for all dates [address] [address] [place] [address] Medicaid MEDICARE WPS MEDICARE PART B [id number] 09/21/1993-Pres ent [address] [address] [place] [address] Medicare MEDICAID - OUT OF STATE MEDICAID [facility] [id number] Effective for all dates [address] [address] [place] [address] Medicaid MEDICARE WPS MEDICARE PART B [id number] 09/21/1993-Pres ent [address] [address] [place] [address] Medicare MEDICARE WPS MEDICARE PART B [id number] 09/21/1993-Pres ent [address] [address] [place] [address] Medicare MEDICARE WPS MEDICARE PART B [id number] 09/21/1993-Pres ent [address] [address] [place] [address] Medicare MEDICARE WPS MEDICARE PART B [id number] 09/21/1993-Pres ent [address] [address] [place] [address] Medicare MEDICARE W[place] MEDICARE PART B [id number] 09/21/1993-Pres ent [address] [address] [place] [address] Medicare MEDICARE WPS MEDICARE PART B [id number] 09/21/1993-Pres ent [address] [address] [place] [address] Medicare MEDICARE WPS MEDICARE PART B [id number] 09/21/1993-Pres ent [address] [address] [place] [address] [place] [id number] Effective for all dates [address] [address] [place] [address] Medicaid [place] Care Teams Chief Controller Station Relationship Specialty Start Date End Date Mervin Hawk MD [address] [place] [id number] PCP - General 11/04/18
--- OUTSIDE RECORDS SUMMARY | 2024-05-03 11:49 | XMS_ITS | Continuity of Care Document ---
Author Organization [facility] Address [address] [phone] Phone Care Team Providers Care Group Activities Aide Name Role Phone Mervin Hawk MD Unavailable [...] ONE EVERY 8 HOURS NEEDED FOR ITCHING. Fish Oil 1,000 mg (120 mg-180 mg) capsule 1 cap daily - Active famotidine 40 mg tablet take 1/2 tab (20mg) po bid - Active All Day Pain Relief 220 mg tablet 2 tab in am and hs - Active Depakote ER 250 mg tablet,extended release 3 tab po bid - Active Risperdal 4 mg tablet take 1 tab po at hs - Active Tylenol 325 mg tablet 2 tabs po q4hrs prn for pain or elevated temp - Active MAG-AL 200 mg-200 mg/5 mL oral suspension 30cc (liq) po q6hrs prn - Active ondansetron HCl 8 mg tablet take 1 tablet by oral route 2 times every day 8 MG - Active prochlorperazine maleate 10 mg tablet 1 tab po q6hrs prn for nausea - Active triamcinolone acetonide 0.1 % topical cream apply cream to abd. rash bid prn - Active Procedures Procedure Date DOMICIL/R-HOME VISIT EST [facility]/OUTPATIENT VISIT, [facility] Advance Directives Directive Yes / No Effective Date File Name No Information Encounters Encounter Description Practice Location Reason(s) For Visit Diagnoses Date Provider Providers Copied on Encounter [facility], [address] [place] [address], [facility], tel:[phone] [facility] No Information 2 Carine Jeffries. [address] [place] [address], [facility], . tel: [phone] [facility], [address] [place] [address], [facility], tel:[phone] [facility] No Information 2 Carine Jeffries. [address] [place] [address], [address], [place]. tel: [phone] [facility], [address] [place] [address], [facility], tel:[phone] [facility] No Information 2 Escobar Gary. [address] [place] [address], [facility], [place]. tel: [phone] DOMICIL/R-HO ME VISIT EST [facility], [address] [place] [address], [facility], [place] tel:[phone] [facility] HPI (chief complaint) Mixed hyperlipidemiaType 2 diabetes mellitus without complicationsEpilep sy, unspecified, not intractable, without status epilepticusSchizoaf fective disorder, bipolar typeMajor depressive disorder, recurrent, unspecified 2 Carine Jeffries. [address] [place] [address], [facility], [place]. tel: [phone] [facility], [address] [place] [address], [facility], [place] tel:[phone] [place] [address] No Information 2 Carine Jeffries. [address] [place] [address], [facility], [place]. tel: [phone] [facility], [address] [place] [address], [facility], [place] tel:[phone] [place] [address] No Information 2 Carine Jeffries. [address] [place] [address], [facility], [place]. tel: [phone] [facility], [address] [place] [address], [facility], [place] tel: [phone] [place] [address] No Information 2 Carine Jeffries. [address] [place] [address], [facility], [place]. tel: [phone] [facility], [address] [place] [address], [facility], [place] tel: [phone] [place] [address] No Information 2 Carine Jeffries. [address] [place] [address], [facility], [place]. tel: [phone] [facility], [address] [place] [address], [facility], [place] tel: [phone] [place] [address] No Information 2 Carine Jeffries. [address] [place] [address], [address], [place]. tel: [phone] [facility], [address] [place] [address], [facility], tel: [phone] [place] [address] No Information 2 Carine Jeffries. [address] [place] [address], [facility], [place]. tel: [phone] [facility], [address] [place] [address], [facility], tel: [phone] [place] [address] No Information 2 Carine Jeffries. [address] [place] [address], [facility], [place]. tel: [phone] [facility], [address] [place] [address], [facility], [place] tel: [phone] [place] [address] 6 Month Follow Up at [facility] (chief complaint) Type 2 diabetes mellitus without complicationsEpilep sy, unspecified, not intractable, without status epilepticusMixed hyperlipidemiaGastr o-esophageal reflux disease without esophagitisGout, unspecifiedMajor depressive disorder, recurrent, unspecified 2 Carine Jeffries. [address] [place] [address], [facility], [place]. tel: [phone] OFFICE/OUTPA TIENT VISIT, [facility], [address] [place] [address], [facility], tel: [phone] [facility] est. care (chief complaint) Type 2 diabetes mellitus without complicationsBody mass index [BMI] 32.0-32.9, adult 1 Carine Jeffries. [address] [place] [address], [facility], [place]. tel: [phone] [facility], [address] [place] [address], [facility], [place] tel: [phone] [facility] No Information 1 Carine Jeffries. [address] [place] [address], [facility], [place]. tel: [phone] Family History Family Member Type Diagnosis Age [...] gistry Payers Payer name Insurance type Covered republican ID Authormarena tameka(s) [facility] [id number] Social History Type Description Quantity Date Captured Comments Alcohol Use Details Unknown Caffeine Use Details Unknown Tobacco Use Status Smoking Status No Information Sex Male Chief Complaint And Reason For Visit No Information Reason For Referral Reason For Referral No Information Plan Of Treatment Date Type Action Status Future Order: Lab Order A1C ([id number]), Se nt on: Sent Future Order: Lab Order CMP ([id number]), Se nt on: Sent Future Order: Lab Order CBC W/ D iff ([id number]), Sent on: Sent Future Order: Lab Order LIPID PA ADRIANA ([id number]), Sent on: Sent Future Order: Lab Order VITAMIN D (25) ([id number]), Sent on: Sent Future Order: Lab Order URIC ACID ([id number]), Sent on: Sent History Of Present Illness Encounter Date Complaint History Of Prese nt Illness HPI No new concerns or complaints from patient or staff.Eating and sleeping well.Medication list reviewed [facility] is doing well.No new concerns or complaints by the patient or staffEating well. Sleeping well. est. care Patient is here today to get established with my new practice. He is brought in by his mother, this is the first time of had a chance to meet her. He also brings in his blood sugar log from the [facility].He is here today to discuss his [...]
--- OUTSIDE RECORDS SUMMARY | 2024-05-03 11:49 | XMS_ITS | Patient Health Summary ---
Author Organization [facility] [employer] Address [address] [place] [address] Care Team Providers Care Meatman Name Role Phone Mervin Hawk MD Primary Care Provider [phone] Note from [facility],non-owned Affiliates and Associated Physician Practices is amultiple site organization consisting of ambulatory clinics and hospital sitesin [place], [place], [place] and [place]. This disclosure is being madepursuant to the Care Everywhere program and may not contain all information available regarding this patient. Last updated 17.[facility] [employer] Allergies * Haloperidol(Other) Social History Tobacco Use [...] (HCC) * GLUCOSE SCREEN - POCT (IP) [facility](Performed 11/30/2018) * BONE MARROW BIOPSY (STL)(Performed 09/15/2018) * FLOW CYTOMETRY BONE MARROW(Performed 09/14/2018) Performed for Hodgkin lymphoma * PATHOLOGY TISSUE(Performed 08/27/2018) Results * SARS-COV-2 (COVID-19) IN HOUSE (08/31/2019 2:03 PM CDT) COVID-19 PCR Not detected Not detected, Invalid 09/01/2019 6:[address] [facility] Microbiology SPECIMEN FROM NASOPHARYNGEAL STRUCTURE / Unknown Collection / Unknown 08/31/2019 2:03 PM CDT 09/01/2019 11:[address] [facility] - 09/01/2019 6:41 PM CDT This Real Time RT-PCR assay was developed and its performance characteristics determined by [facility]. This test has been [...] Artem Thao MD LAB - MICROBIOLOGY ORDERABLES [facility] [address] [place], [place] [address] [phone] * PET CT WHOLE BODY (11/30/2018 12:15 [...] * (ABNORMAL) GLUCOSE SCREEN - POCT (IP) [facility] (11/30/2018 10:27 AM CDT) Glucose WB/POC 185(A) 70 - 115 mg/dL [facility] POCT TESTING Blood BLOOD SPECIMEN / Unknown 11/30/2018 10:27 AM CDT Daryl Angel MD LAB - POINT OF CARE ORDERABLES [facility] POCT TESTING [address] [phone] * BONE MARROW BIOPSY (STL) (09/15/2018 8:00 AM CDT) Case Report Bone Marrow Patholog y Report Case: [id number] Authorizing Provider: Tegan Payton MD Collected: 09/15/2018 08:00 AM Pathologist: Ju Mcneal MD Received: 09/15/2018 04:13 PM Specimens: A) - Bone Marrow Core, BN19-30 B) - Bone Marrow Core, BN19-30 C) - Blood Peripheral, BN19-30 D) - Bone Marrow Aspirate, BN19-30 2018 4:39 PM [address] [facility] Final Diagnosis Bone marrow, aspirate, clot section, and core biopsy: - Normocellular marrow with maturing trilineage hematopoiesis. - Decreased storage iron. - No evidence of lymphoma or high grade myeloid neoplasm. - See microscopic description. Peripheral blood smear: - Macrocytic anemia. - See microscopic description. 2018 4:39 PM [address] [facility] Comment In summary, the bone marrow is normocellular for age with maturing trilineage hematopoiesis and no evidence of lymphoma or high grade myeloid neoplasm. Clinical correlation is recommended. KR 2018 4:39 PM [address] [facility] Peripheral Smear Description CBC Data: [...] Platelet morphology: normal. 2018 4:39 PM [address] [facility] Bone Marrow Aspirate Differential count (200 cells): 63% maturing myeloid precursors, 26.5% erythroid progenitors, 2% monocytes, 5.5% eosinophils, and 3% lymphocytes. Specimen quality: adequate. Spicules: present. Trilineage Hematopoiesis: present. Myeloid:Erythroid ratio: 2.7:1. Myeloid Maturation: normal. Erythroid Maturation: normal. Megakaryocyte morphology: normal nuclear lobation. Storage iron (by special stain): decreased. Sideroblastic iron (by special stain): Decreased. No ring sideroblasts. 2018 4:39 PM [facility] Bone Marrow Core Biopsy and [...] performed on the core biopsy in the [facility] Department of Pathology, with appropriately reactive control and is negative for tumor cells. 2018 4:39 PM [facility] Flow Cytometry Summary Concurrent flow cytometric analysis ([id number]) demonstrates no evidence of non-Hodgkin lymphoma or high grade myeloid neoplasm. 2018 4:39 PM [facility] Clinical History 47 year old man with recent diagnosis of classical Hodgkin lymphoma. Staging bone marrow biopsy. 2018 4:39 PM [facility] Materials Received Received are 19 slides and 2 blocks labeled as [id number] along with the outside pathology report. The materials originate from [facility], [address] [place] [address]. All materials are returned to the referring institution, along with a copy of our final report. 2018 4:39 PM [facility] Disclaimer The performance characteristics of all immunohistochemical and indirect immunofluorescence stains (if any) cited in this report were determined by the Histopathology Laboratory of [facility]. Some of these tests were developed [...] attending (teaching) pathologist. 2018 4:39 PM CDT [facility] Embedded Images 2018 4:39 PM CD[address] [facility] Pathology/Cytology SPECIMEN FROM BONE MARROW [...] City/State/[facility] Co de Phone Number [facility] [address] [phone] * FLOW CYTOMETRY BONE MARROW (09/14/2018 9:35 AM CDT) Case Report Flow Cytometry Case: [id number] Authorizing Provider: Tegan Payton MD Collected: 09/14/2018 09:35 AM Pathologist: Ju Mcneal MD Received: 09/14/2018 04:15 PM Specimen: Bone Marrow 09/15/2018 9:15 AM CDT [facility] Final Diagnosis Bone marrow, flow cytometric immunophenotypic analysis: - No evidence of non-Hodgkin lymphoma or high grade myeloid neoplasm. - See interpretation. 09/15/2018 9:15 AM CDT [facility] Flow Cytometry Interpretation The bone [...] the flow cytometry specimen is reviewed for coding quality analyst purposes. In summary, the bone marrow specimen shows no evidence of a non-Hodgkin lymphoma or high grade myeloid neoplasm. Correlation with additional clinical information and the concurrent bone marrow biopsy specimen is required. KR 09/15/2018 9:15 AM [facility] Flow Cytometry Results Differential Result Comment Flow Cell Count /uL [id number] Total Viability % 100.0 Lymphocytes % 13 Dim CD45 Region % 4 Monocytes % 10 Granulocytes % 70 09/15/2018 9:15 AM [facility] Reason for test Hodgkin lymphoma 201.90 09/15/2018 9:15 AM [facility] Client Specimen ID # [id number] 09/15/2018 9:15 AM [facility] Number of markers 10 were performed. A Flow CD3 A Flow CD10 A Flow CD20 A Flow CD23 A Flow CD5 A Flow CD19 A Flow CD34 A Flow CD45 A Otis+CD19+ A Lambda+CD19+ 09/15/2018 9:15 AM [facility] Disclaimer Test performed at [facility], [address] [place] [address], [id number]. *The established laboratory minimum viability is 70%. [...] high complexity clinical testing. 09/15/2018 9:15 AM [facility] Embedded Images 9 9:15 AM [facility] Pathology/Cytolo gy BONE MARROW SPECIMEN / Unknown 09/14/2018 9:35 AM CDT 09/14/2018 4:15 PM CDT Tegan Payton MD LAB - PATHOLOGY/CYTO LOGY ORDERABLES [facility] [address] [phone] * PATHOLOGY TISSUE (08/27/2018 8:00 AM CDT) Case Report Surgical Pathology Report Case: [id number] Authorizing Provider: Tegan Payton MD Collected: 08/27/2018 08:00 AM Pathologist: Ju Mcneal MD Received: 09/14/2018 03:40 PM Specimen: Lymph Node Biopsy, [id number] 09/14/2018 4:15 PM [address] [facility] Final Diagnosis Lymph node, right neck, needle core biopsy ([id number] [id number], 08/27/2018): - Classical Hodgkin lymphoma. - See description. 09/14/2018 4:[address] PM [address] [facility] Microscopic Description and Comment Review of the material demonstrates thin cores of loosely fibrotic tissue infiltrated by mostly small, mature lymphocytes with scattered eosinophils and neutrophils. There are occasional Hodgkin/Adlofo-Sternber g cells singly dispersed throughout the tissue. [...] is required. KR 09/14/2018 4:15 PM [address] [facility] Clinical History Cervical lymphadenopathy. 09/14/2018 4:15 PM [facility] Materials Received Received are 16 slides labeled as [id number] along with the outside pathology report. The materials were interpreted at [address] [address] and are sent from [facility], [place] [address]. All materials are returned to the referring institution, along with a copy of our final report. 09/14/2018 4:15 PM [facility] Disclaimer The performance characteristics of all immunohistochemical and indirect immunofluorescence stains (if any) cited in this report were determined by the Histopathology Laboratory of [facility]. Some of these tests were developed [...] the attending (teaching) pathologist. 09/14/2018 4:15 PM [facility] Embedded Images 09/14/2018 4:15 PM [facility] Pathology/Cytolo gy BIOPSY OF LYMPH NODE / Unknown 08/27/2018 8:00 AM CDT 09/14/2018 3:40 PM CDT Tegan Payton MD LAB - PATHOLOGY/CYTO LOGY ORDERABLES Performing Organization Address City/State/[facility] Co de Phone Number [facility] [address] [phone] Care Teams Meatman Relationship Specialty Start Date End Date Mervin Hawk MD [address] [place] [phone] PCP - General 11/04/18
--- OUTSIDE RECORDS SUMMARY | 2024-05-03 11:49 | XMS_ITS ---
Author Organization [facility] Address [address] [place] [phone] Phone Care Team Providers Care Mexican Food Maker Name Role Phone Baldev Espinal MD Unavailable [phone] Vu Beebe MD Unavailable [phone] Luis Eduardo Balderas MD Primary Care Provider [phone] Active Problems Problem Noted Date Diagnosed Date [...]
--- OUTSIDE RECORDS SUMMARY | 2024-05-03 11:49 | XMS_ITS | Encounter Summary ---
Author Organization [facility] Address [address] [place] [address] [place] [address] Care Team Providers Care Extrusion Machine Operator Name Role Phone Mervin Hawk MD Primary Care Provider [phone] Encounter Details Date Type Department Care Team (Late st Contact Info) Description 09/01/2019 Lab Requisition [facility] [address] [place] [address] Artem Thao MD Social History Tobacco Use [...] Not detected, Invalid 09/01/2019 6:41 PM CDT [facility] Microbiology SPECIMEN FROM NASOPHARYNGEAL STRUCTURE / Unknown Collection / Unknown 08/31/2019 2:03 PM CDT 09/01/2019 11:24 AM CDT Narrative [facility] - 09/01/2019 6:41 PM CDT This Real Time RT-PCR assay was developed and its performance characteristics determined by [facility]. This test [...] Artem Thao MD LAB - MICROBIOLOGY ORDERABLES [facility] [address] [place], [address] [phone] documented in this encounter Visit Diagnoses Not on filedocumented in this encounter Additional Health Concerns Infection Onset Date Last Indicated Resolved Time COVID-19 Under Investigation 08/31/2019 08/31/2019 09/01/2019 6:41 PM CDT documented as of this encounter Care Teams Extrusion Machine Operator Relationship Specialty Start Date End Date Mervin Hawk MD [address] [place] [phone] PCP - General 11/04/18 documented as of this encounter
--- OUTSIDE RECORDS SUMMARY | 2024-05-03 11:49 | XMS_ITS | Referral Summary ---
Author Organization [facility] Address [address] [facility] [place] [address] Care Team Providers Care Medtronics Technician Name Role Phone Mervin Hawk MD Primary Care Provider [phone] Source Comments [facility],non-research [facility] Affiliates and Associated Physician Practices is amultiple site organization consisting of ambulatory clinics and hospital sitesin [place], [place], [place] and [place]. This disclosure is being madepursuant to the Care Everywhere program and may not contain all information available regarding this patient. Last updated 17.[facility] Allergies Active Allergy Reactions Criticality Noted Date [...] Type MEDICARE MEDICARE PART A AND B [id number] Effective for all dates [address] [place] [address] Medicare MEDICARE WPS MEDICARE PART B [id number] 01/08/2022-Pr esent [address] [address] [place] [address] Medicare MEDICAID - OUT OF STATE [place] PUBLIC AID [id number] 01/08/2022-Pr esent [address] [address] [place] [address] Medicaid MEDICARE WPS MEDICARE PART B [id number] 01/08/2022-Pr esent [address] [address] [place] [address] Medicare MEDICAID - OUT OF [facility]LY [facility] MEDICAID [facility] PUBLIC AID [id number] 01/08/2022-Pr esent [address] [address] [place] [address] Medicaid MEDICARE WPS MEDICARE PART B [id number] 01/08/2022-Pr esent [address] [address] [place] [address] Medicare MEDICAID - OUT OF [facility] MEDICAID [facility] PUBLIC AID [id number] 01/08/2022-Pr esent [address] [address] [place] [address] Medicaid MEDICARE WPS MEDICARE PART B [id number] 01/08/2022-Pr esent [address] [address] [place] [address] Medicare MEDICAID - OUT OF STATE MEDICAID [facility] PUBLIC AID [id number] 01/08/2022-Pr esent [address] [address] [place] [address] Medicaid MEDICARE WPS MEDICARE PART B [id number] 01/08/2022-Pr esent [address] [address] [place] [address] Medicare MEDICAID - OUT OF STATE MEDICAID [facility] PUBLIC AID [id number] 01/08/2022-Pr esent [address] [address] [place] [address] Medicaid MEDICARE WPS MEDICARE PART B [id number] 01/08/2022-Pr esent [address] [address] [place] [address] Medicare MEDICAID - OUT OF STATE MEDICAID [facility] PUBLIC AID [id number] 01/08/2022-Pr esent [address] [address] [place] [address] Medicaid MEDICARE WPS MEDICARE PART B [id number] 01/08/2022-Pr esent [address] [address] [place] [address] Medicare MEDICAID - OUT OF STATE MEDICAID [facility] PUBLIC AID [id number] 01/08/2022-Pr esent [address] [address] [place] [address] Medicaid MEDICARE WPS MEDICARE PART B [id number] 09/21/1993-Pres ent [address] [address] [place] [address] Medicare MEDICAID - OUT OF STATE MEDICAID [facility] PUBLIC AID [id number] Effective for all dates [address] [address] [place] [address] Medicaid MEDICARE WPS MEDICARE PART B [id number] 09/21/1993-Pres ent [address] [address] [place] [address] Medicare MEDICAID - OUT OF STATE MEDICAID [facility] PUBLIC AID [id number] Effective for all dates [address] [address] [place] [address] Medicaid MEDICARE WPS MEDICARE PART B [id number] 09/21/1993-Pres ent [address] [address] [place] [address] Medicare MEDICAID - OUT OF STATE MEDICAID [facility] PUBLIC AID [id number] Effective for all dates [address] [address] [place] [address] Medicaid MEDICARE WPS MEDICARE PART B [id number] 09/21/1993-Pres ent [address] [address] [place] [address] Medicare MEDICAID - OUT OF STATE MEDICAID [facility] PUBLIC AID [id number] Effective for all dates [address] [address] [place] [address] Medicaid MEDICARE WPS MEDICARE PART B [id number] 09/21/1993-Pres ent [address] [address] [place] [address] Medicare MEDICAID - OUT OF STATE MEDICAID [facility] PUBLIC AID [id number] Effective for all dates [address] [address] [place] [address] Medicaid MEDICARE WPS MEDICARE PART B [id number] 09/21/1993-Pres ent [address] [address] [place] [address] Medicare MEDICAID - OUT OF STATE MEDICAID [facility] PUBLIC AID [id number] Effective for all dates [address] [address] [place] [address] Medicaid MEDICARE WPS MEDICARE PART B [id number] 09/21/1993-Pres ent [address] [address] [place] [address] Medicare MEDICAID - OUT OF STATE MEDICAID [facility] PUBLIC AID [id number] Effective for all dates [address] [address] [place] [address] Medicaid MEDICARE WPS MEDICARE PART B [id number] 09/21/1993-Pres ent [address] [address] [place] [address] Medicare MEDICAID - OUT OF STATE MEDICAID [facility] PUBLIC AID [id number] Effective for all dates [address] [address] [place] [address] Medicaid MEDICARE WPS MEDICARE PART B [id number] 09/21/1993-Pres ent [address] [address] [place] [address] Medicare MEDICAID - OUT OF STATE MEDICAID [facility] PUBLIC AID [id number] Effective for all dates [address] [address] [place] [address] Medicaid MEDICARE WPS MEDICARE PART B [id number] 09/21/1993-Pres ent [address] [address] [place] [address] Medicare MEDICAID - OUT OF STATE MEDICAID [facility] PUBLIC AID [id number] Effective for all dates [address] [address] [place] [address] Medicaid MEDICARE WPS MEDICARE PART B [id number] 09/21/1993-Pres ent [address] [address] [place] [address] Medicare MEDICAID - OUT OF STATE MEDICAID [facility] PUBLIC AID [id number] Effective for all dates [address] [address] [place] [address] Medicaid MEDICARE WPS MEDICARE PART B [id number] 09/21/1993-Pres ent [address] [address] [place] [address] Medicare MEDICAID - OUT OF STATE MEDICAID [facility] PUBLIC AID [id number] Effective for all dates [address] [address] [place] [address] Medicaid MEDICARE WPS MEDICARE PART B [id number] 09/21/1993-Pres ent [address] [address] [place] [address] Medicare MEDICAID - OUT OF STATE MEDICAID [facility] PUBLIC AID [id number] Effective for all dates [address] [address] [place] [address] Medicaid MEDICARE WPS MEDICARE PART B [id number] 09/21/1993-Pres ent [address] [address] [place] [address] Medicare MEDICAID - OUT OF STATE MEDICAID [facility] PUBLIC AID [id number] Effective for all dates [address] [address] [place] [address] Medicaid MEDICARE WPS MEDICARE PART B [id number] 09/21/1993-Pres ent [address] [address] [place] [address] Medicare MEDICAID - OUT OF STATE MEDICAID [facility] PUBLIC AID [id number] Effective for all dates [address] [address] [place] [address] Medicaid MEDICARE WPS MEDICARE PART B [id number] 09/21/1993-Pres ent [address] [address] [place] [address] Medicare MEDICAID - OUT OF STATE MEDICAID [facility] PUBLIC AID [id number] Effective for all dates [address] [address] [place] [address] Medicaid MEDICARE WPS MEDICARE PART B [id number] 09/21/1993-Pres ent [address] [address] [place] [address] Medicare MEDICAID - OUT OF STATE MEDICAID [facility] PUBLIC AID [id number] Effective for all dates [address] [address] [place] [address] Medicaid MEDICARE WPS MEDICARE PART B [id number] 09/21/1993-Pres ent [address] [address] [place] [address] Medicare MEDICAID - OUT OF STATE MEDICAID [facility] PUBLIC AID [id number] Effective for all dates [address] [address] [place] [address] Medicaid MEDICARE WPS MEDICARE PART B [id number] 09/21/1993-Pres ent [address] [address] [place] [address] Medicare MEDICAID - OUT OF STATE MEDICAID [facility] PUBLIC AID [id number] Effective for all dates [address] [address] [place] [address] Medicaid MEDICARE WPS MEDICARE PART B [id number] 09/21/1993-Pres ent [address] [address] [place] [address] Medicare MEDICAID - OUT OF STATE MEDICAID [facility] PUBLIC AID [id number] Effective for all dates [address] [address] [place] [address] Medicaid MEDICARE WPS MEDICARE PART B [id number] 09/21/1993-Pres ent [address] [address] [place] [address] Medicare MEDICAID - OUT OF STATE MEDICAID [facility] PUBLIC AID [id number] Effective for all dates [address] [address] [place] [address] Medicaid MEDICARE WPS MEDICARE PART B [id number] 09/21/1993-Pres ent [address] [address] [place] [address] Medicare MEDICAID - OUT OF STATE MEDICAID [facility] PUBLIC AID [id number] Effective for all dates [address] [address] [place] [address] Medicaid MEDICARE WPS MEDICARE PART B [id number] 09/21/1993-Pres ent [address] [address] [place] [address] Medicare MEDICAID - OUT OF STATE MEDICAID [facility] PUBLIC AID [id number] Effective for all dates [address] [address] [place] [address] Medicaid MEDICARE WPS MEDICARE PART B [id number] 09/21/1993-Pres ent [address] [address] [place] [address] Medicare MEDICAID - OUT OF STATE MEDICAID [facility] PUBLIC AID [id number] Effective for all dates [address] [address] [place] [address] Medicaid MEDICARE WPS MEDICARE PART B [id number] 09/21/1993-Pres ent [address] [address] [place] [address] Medicare MEDICAID - OUT OF STATE MEDICAID [facility] PUBLIC AID [id number] Effective for all dates [address] [address] [place] [address] Medicaid MEDICARE WPS MEDICARE PART B [id number] 09/21/1993-Pres ent [address] [address] [place] [address] Medicare MEDICAID - OUT OF STATE MEDICAID [facility] PUBLIC AID [id number] Effective for all dates [address] [address] [place] [address] Medicaid MEDICARE WPS MEDICARE PART B [id number] 09/21/1993-Pres ent [address] [address] [place] [address] Medicare MEDICAID - OUT OF STATE MEDICAID [facility] PUBLIC AID [id number] Effective for all dates [address] [address] [place] [address] Medicaid MEDICARE WPS MEDICARE PART B [id number] 09/21/1993-Pres ent [address] [address] [place] [address] Medicare MEDICAID - OUT OF STATE MEDICAID [facility] PUBLIC AID [id number] Effective for all dates [address] [address] [place] [address] Medicaid MEDICARE WPS MEDICARE PART B [id number] 09/21/1993-Pres ent [address] [address] [place] [address] Medicare MEDICAID - OUT OF STATE MEDICAID [facility] PUBLIC AID [id number] Effective for all dates [address] [address] [place] [address] Medicaid MEDICARE WPS MEDICARE PART B [id number] 09/21/1993-Pres ent [address] [address] [place] [address] Medicare MEDICAID - OUT OF STATE MEDICAID [facility] PUBLIC AID [id number] Effective for all dates [address] [address] [place] [address] Medicaid MEDICARE WPS MEDICARE PART B [id number] 09/21/1993-Pres ent [address] [address] [place] [address] Medicare MEDICAID - OUT OF STATE MEDICAID [facility] PUBLIC AID [id number] Effective for all dates [address] [address] [place] [address] Medicaid MEDICARE WPS MEDICARE PART B [id number] 09/21/1993-Pres ent [address] [address] [place] [address] Medicare MEDICAID - OUT OF [facility] MEDICAID [facility] PUBLIC AID [id number] Effective for all dates [address] [address] [place] [address] Medicaid MEDICARE WPS MEDICARE PART B [id number] 09/21/1993-Pres ent [address] [address] [place] [address] Medicare MEDICAID - OUT OF STATE MEDICAID [facility] PUBLIC AID [id number] Effective for all dates [address] [address] [place] [address] Medicaid MEDICARE WPS MEDICARE PART B [id number] 09/21/1993-Pres ent [address] [address] [place] [address] Medicare MEDICAID - OUT OF [facility]MER[facility] MEDICAID [facility] PUBLIC AID [id number] Effective for all dates [address] [address] [place] [address] Medicaid MEDICARE WPS MEDICARE PART B [id number] 09/21/1993-Pres ent [address] [address] [place] [address] Medicare MEDICAID - OUT OF STATE MEDICAID [facility] PUBLIC AID [id number] Effective for all dates [address] [address] [place] [address] Medicaid MEDICARE MEDICARE PART A AND B [id number] 09/21/1993-Pres ent [address] [place] [address] Medicare MEDICARE WPS MEDICARE PART B [id number] 09/21/1993-Pres ent [address] [address] [place] [address] Medicare MEDICAID - OUT OF STATE MEDICAID [facility] PUBLIC AID [id number] Effective for all dates [address] [address] [place] [address] Medicaid MEDICARE WPS MEDICARE PART B [id number] 09/21/1993-Pres ent [address] [address] [place] [address] Medicare MEDICAID - OUT OF [facility]LY [facility] MEDICAID - [place] PUBLIC AID [id number] Effective for all dates [address] [address] [place] [address] Medicaid MEDICARE WPS MEDICARE PART B [id number] 09/21/1993-Pres ent [address] [address] [place] [address] Medicare MEDICARE WPS MEDICARE PART B [id number] 09/21/1993-Pres ent [address] [address] [place] [address] Medicare MEDICARE WPS MEDICARE PART B [id number] 09/21/1993-Pres ent [address] [address] [place] [address] Medicare MEDICARE WPS MEDICARE PART B [id number] 09/21/1993-Pres ent [address] [address] [place] [address] Medicare MEDICARE WPS MEDICARE PART B [id number] 09/21/1993-Pres ent [address] [address] [place] [address] Medicare MEDICARE WPS MEDICARE PART B [id number] 09/21/1993-Pres ent [address] [address] [place] [address] Medicare MEDICARE WPS MEDICARE PART B [id number] 09/21/1993-Pres ent [address] [address] [place] [address] Medicare MEDICAID - [place] - [place] [id number] Effective for all dates [address] [address] [place] [address] Medicaid [place] Care Teams Medtronics Technician Relationship Specialty Start Date End Date Mervin Hawk MD [address] [place] [address] PCP - General 11/04/18
--- OUTSIDE RECORDS SUMMARY | 2024-05-03 11:49 | XMS_ITS | Encounter Summary ---
Author Organization [facility] Address [address] [place] [address] Phone Care Team Providers Care Supervisor Pipe Joints Name Role Phone Mervin Hawk MD Primary Care Provider [phone] Brian Kim MD Unavailable Baldev Espinal MD Unavailable [phone] Vu Beebe MD Unavailable [phone] Luis Eduardo Balderas MD Primary Care Provider [phone] Encounter Details Date Type Department Care Team (Late st Contact Info) Description 06/02/2019 [facility] [address] [place] [address] Brian Kim MD [address] [place] [address] Social History Tobacco Use Types [...] encounter Miscellaneous Notes * Telephone Encounter - Lsia Santos Sreekanth - 06/02/2019 10:03 AM CDT [...] she contact's Haris's PCP Mervin Hawk in [place] as soon as possible. She states Haris has an appointment this afternoon and she will make sure to keep our office informed. The patient is not currently undergoing treatment. documented in this encounter Plan of Treatment Upcoming Encounters Date Type Department Care Team (Late st Contact Info) Description 10/13/2024 1:00 PM CDT Office Visit [facility] Oncology Services [address] [place] [phone] Vu Beebe MD [address] [place] [address] Discharge Disposition: Discharged to home or Selfcare documented as of this encounter Visit Diagnoses Not on filedocumented in this encounter Care Teams Supervisor Pipe Joints Relationship Specialty Start Date End Date Mervin Hawk MD [address] [place] [address] PCP - General Family Medicine 09/07/18 05/23/22 Luis Eduardo Balderas MD [address] [place] [address] PCP - General Internal Medicine 05/24/22 rBian Kim MD [address] [place] [address] Consulting Physician Medical Oncology 10/06/18 09/30/19 Baldev Espinal MD [address] [place] [address] Consulting Physician Radiation Oncology 10/06/18 Vu Beebe MD [address] [place] [address] Consulting Physician Medical Oncology 10/01/19 documented as of this encounter
--- OUTSIDE RECORDS SUMMARY | 2024-05-03 11:49 | XMS_ITS | Encounter Summary ---
Author Organization [facility] Address [address] [place] [address] [place] [address] Care Team Providers Care Perinatal Educator Name Role Phone Mervin Hawk MD Primary Care Provider [phone] Encounter Details Date Type Department Care Team (Late st Contact Info) Description 09/15/2018 Lab Requisition [facility] [address] [place] [address] Tegan Payton MD [address] [place], [place] [id number] Social History Tobacco Use Types Packs/Day Years [...] Report Bone Marrow Patholog y Report Case: [id number] Authorizing Provider: Tegan Payton MD Collected: 09/15/2018 [...] - See microscopic description. 2018 4:39 PM [facility] Comment In summary, the bone marrow is normocellular for age with maturing trilineage hematopoiesis and no evidence of lymphoma or high grade myeloid neoplasm. Clinical correlation is recommended. KR 2018 4:39 PM [facility] Peripheral Smear Description [...] normal. Platelet morphology: normal. 2018 4:39 PM [facility] Bone Marrow Aspirate [...] Decreased. No ring sideroblasts. 2018 4:39 PM [facility] Bone Marrow Core [...] performed on the core biopsy in the [facility] Department of Pathology, with appropriately reactive control and is negative for tumor cells. 2018 4:39 PM [facility] Flow Cytometry Summary Concurrent flow cytometric analysis ([id number]) demonstrates no evidence of non-Hodgkin lymphoma or high grade myeloid neoplasm. 2018 4:39 PM [facility] Clinical History 47 year old man with recent diagnosis of classical Hodgkin lymphoma. Staging bone marrow biopsy. 2018 4:39 PM [facility] Materials Received Received are 19 slides and 2 blocks labeled as [id number] along with the outside pathology report. The materials originate from [facility], [address] [place] [address]. All materials are returned to the referring institution, along with a copy of our final report. 2018 4:39 PM [facility] Disclaimer The performance characteristics of all immunohistochemical and indirect immunofluorescence stains (if any) cited in this report were determined by the Histopathology Laboratory of [facility]. Some of these tests were developed [...] the attending (teaching) pathologist. 2018 4:39 PM [facility] Embedded Images 2018 4:39 PM [facility] Pathology/Cytology SPECIMEN FROM [...] [facility] Co de Phone Number [facility] [address] [phone] documented in this encounter Visit Diagnoses Not on filedocumented in this encounter Additional Health Concerns Infection Onset Date Last Indicated Resolved Time COVID-19 Under Investigation 08/31/2019 08/31/2019 09/01/2019 6:41 PM CDT documented as of this encounter Care Teams Perinatal Educator Relationship Specialty Start Date End Date Mervin Hawk MD [address] [place] [address] PCP - General 11/04/18 documented as of this encounter
--- OUTSIDE RECORDS SUMMARY | 2024-05-03 11:49 | XMS_ITS | Clinical Summary ---
Author Organization [facility] Address [address] [place] [address] Phone Care Team Providers Care Police Officer Crime Prevention Name Role Phone Baldev Espinal MD Unavailable [phone] Vu Beebe MD Unavailable [phone] Luis Eduardo Balderas MD Primary Care Provider [phone] Allergies Active Allergy Reactions Criticality Noted Date [...] g by mouth 2 times daily. Active Cary-3 Fatty Acids (fish oil) 1200 MG Capsule [...] Other-comment Father MVA, intoxicat ed as per [facility] note dated 09/13/2001 Cervical Cancer Maternal Grandmother [...] 1:00 PM CDT Office Visit [facility] Oncology Services [address] [place] [address] Vu Beebe MD [address] [place] [address] Discharge Disposition: Discharged to home or Selfcare [...] this topic Medical Devices Explanted Type Area Director Of Aviation Device Identifier Shelf Expiration Date Model / Serial / Lot Port Powerport Clearvue Isp Implantable W/8fr Folyurethane Catheter - [id number] Implanted:Qty: 1 on 10/02/2018 by Jaden Castillo MD at [facility] Explanted:Qty: 1 on 09/02/2019 [facility] IMPLANT [employer] 08/22/2019 [id number] / [id number] / [id number] Procedures Procedure Name Priority Date/Time Associated Diagnosis [...] Brady Rice M.D. AG: SOUTH Report ID: [id number] Reading Location: [id number] Procedure Note Brady Rice MD - 01/15/2019 [...] Brady Rice M.D. AG: SOUTH Report ID: [id number] Reading Location: [id number] IMPRESSION: Examination is limited by motion. 1. [...] MEDICAID [place] MEDICARE C [employer] Care Teams Police Officer Crime Prevention Relationship Specialty Start Date End Date Luis Eduardo Balderas MD [address] [place] [address] PCP - General Internal Medicine 05/24/22 Baldev Espinal MD Consulting Physician Radiation Oncology 10/06/18 Vu Beebe MD [address] [place] [address] Consulting Physician Medical Oncology 10/01/19
--- OUTSIDE RECORDS SUMMARY | 2024-05-03 11:49 | XMS_ITS | Encounter Summary ---
Author Organization [facility] Address [address] [place] [address] [place] [address] Care Team Providers Care Visual Basic .Net Developer Name Role Phone Mervin Hawk MD Primary Care Provider [phone] Encounter Details Date Type Department Care Team (Late st Contact Info) Description 09/14/2018 Lab Requisition [facility] [address] [place] [address] Tegan Payton MD [address] [place], [place] [id number] Social History Tobacco Use Types Packs/Day Years [...] CDT) Case Report Surgical Pathology Report Case: [id number] Authorizing Provider: Tegan Payton MD Collected: 08/27/2018 08:00 AM Pathologist: Ju Mcneal MD Received: 09/14/2018 03:40 PM Specimen: Lymph Node Biopsy, [id number] 09/14/2018 4:15 PM CDT [facility] Final Diagnosis Lymph node, right neck, needle core biopsy ([facility] [id number], 08/27/2018): - Classical Hodgkin lymphoma. - See description. 09/14/2018 4:15 PM [facility] Microscopic Description and Comment Review [...] correlation is required. KR 09/14/2018 4:15 PM [facility] Clinical History Cervical lymphadenopathy. 09/14/2018 4:15 PM [facility] Materials Received Received are 16 slides labeled as [id number] along with the outside pathology report. The [place] [address] and are sent from [facility], [place] [address]. All materials are returned to the referring institution, along with a copy of our final report. 09/14/2018 4:15 PM [facility] Disclaimer The performance characteristics of all immunohistochemical and indirect immunofluorescence stains (if any) cited in this report were determined by the Histopathology Laboratory of [facility]. Some of these tests were developed [...] LAB Embedded Images 09/14/2018 4:15 PM CDT [facility] Pathology/Cytolo gy BIOPSY OF LYMPH NODE / Unknown 08/27/2018 8:00 AM CDT 09/14/2018 3:40 PM CDT Tegan Payton MD LAB - PATHOLOGY/CYTO LOGY ORDERABLES Performing Organization Address City/State/[facility] Co de Phone Number [facility] [address] [phone] documented in this encounter Visit Diagnoses Not on filedocumented in this encounter Additional Health Concerns Infection Onset Date Last Indicated Resolved Time COVID-19 Under Investigation 08/31/2019 08/31/2019 09/01/2019 6:41 PM CDT documented as of this encounter Care Teams Visual Basic .Net Developer Relationship Specialty Start Date End Date Mervin Hawk MD [address] [place] [address] PCP - General 11/04/18 documented as of this encounter
== END 2024-05-03 11:41 | disposition home or self-care (01) ==
PROVIDERS: Emergency Provider Emergency Medicine; PCP Family Medicine
DX: M25.562 Pain in left knee (principal); F17.210 Nicotine dependence, cigarettes, uncomplicated
CPT/HCPCS: 73562; 99283; L1830

== ENCOUNTER 2024-06-07 11:10 | Outpatient (CLI) | payer MEDICARE, MEDICAID, SELFPAY ==
--- NOTE | ~2024-06-07 | XR_ITS ---
Left Knee Technique: AP, lateral, and sunrise views were obtained. Clinical History: Pain Findings: No fracture or dislocation is seen. Osseous alignment is anatomic. Joint spaces are preserv ed without degenerative or erosive change. Probable small to moderate joint effusion is seen. Impression: Probable small to moderate joint effusion. Reviewed, dictated and finalized at [facility]. Impression: Probable small to moderate joint effusion.
--- OUTSIDE RECORDS SUMMARY | 2024-06-07 13:46 | XMS_ITS | Patient Health Summary ---
Author Organization [facility] [employer] Address [address] [place] [address] Care Team Providers Care Jewel Corner Brushing Machine Operator Name Role Phone Mervin Hawk MD Primary Care Provider [phone] Note from [facility],non-owned Affiliates and Associated Physician Practices is amultiple site organization consisting of ambulatory clinics and hospital sitesin [place], [place], [place] and [place]. This disclosure is being madepursuant to the Care Everywhere program and may not contain all information available regarding this patient. Last updated 17.[facility] [employer] Allergies * Haloperidol(Other) Social History Tobacco Use [...] (HCC) * GLUCOSE SCREEN - POCT (IP) [facility](Performed 11/30/2018) * BONE MARROW BIOPSY (STL)(Performed 09/15/2018) * FLOW CYTOMETRY BONE MARROW(Performed 09/14/2018) Performed for Hodgkin lymphoma * PATHOLOGY TISSUE(Performed 08/27/2018) Results * SARS-COV-2 (COVID-19) IN HOUSE (08/31/2019 2:03 PM CDT) COVID-19 PCR Not detected Not detected, Invalid 09/01/2019 6:41 PM CDT [facility] Microbiology SPECIMEN FROM NASOPHARYNGEAL STRUCTURE / Unknown Collection / Unknown 08/31/2019 2:03 PM CDT 09/01/2019 11:24 AM CDT Narrative [facility] - 09/01/2019 6:41 PM CDT This Real Time RT-PCR assay was developed and its performance characteristics determined by [facility]. This test has been authorized [...] Artem Thao MD LAB - MICROBIOLOGY ORDERABLES [facility] [address] [place], [place] [address] [phone] * PET CT WHOLE BODY (11/30/2018 12:15 [...] * (ABNORMAL) GLUCOSE SCREEN - POCT (IP) [facility] (11/30/2018 10:27 AM CDT) Glucose WB/POC 185(A) 70 - 115 mg/dL [facility] POCT TESTING Blood BLOOD SPECIMEN / Unknown 11/30/2018 10:27 AM CDT Daryl Angel MD LAB - POINT OF CARE ORDERABLES [facility] POCT TESTING [address] [phone] * BONE MARROW BIOPSY (STL) (09/15/2018 8:00 AM CDT) Case Report Bone Marrow Patholog y Report Case: [id number] Authorizing Provider: Tegan Payton MD Collected: 09/15/2018 08:00 AM Pathologist: Ju Mcneal MD Received: 09/15/2018 04:13 PM Specimens: A) - Bone Marrow Core, BN19-30 B) - Bone Marrow Core, BN19-30 C) - Blood Peripheral, BN19-30 D) - Bone Marrow Aspirate, [id number] 2018 4:39 PM T [facility] Final Diagnosis Bone marrow, aspirate, clot section, and core biopsy: - Normocellular marrow with maturing trilineage hematopoiesis. - Decreased storage iron. - No evidence of lymphoma or high grade myeloid neoplasm. - See microscopic description. Peripheral blood smear: - Macrocytic anemia. - See microscopic description. 2018 4:39 PM T [facility] Comment In summary, the bone marrow is normocellular for age with maturing trilineage hematopoiesis and no evidence of lymphoma or high grade myeloid neoplasm. Clinical correlation is recommended. KR 2018 4:39 PM T [facility] Peripheral Smear Description [...] Platelet morphology: normal. 2018 4:39 PM CDT [facility] Bone Marrow Aspirate [...] Decreased. No ring sideroblasts. 2018 4:39 PM [facility] Bone Marrow Core Biopsy and [...] on the core biopsy in the [facility] Department of Pathology, with appropriately reactive control and is negative for tumor cells. 2018 4:39 PM [facility] Flow Cytometry Summary Concurrent flow cytometric analysis ([id number]) demonstrates no evidence of non-Hodgkin lymphoma or high grade myeloid neoplasm. 2018 4:39 PM [facility] Clinical History 47 year old man with recent diagnosis of classical Hodgkin lymphoma. Staging bone marrow biopsy. 2018 4:39 PM [facility] Materials Received Received are 19 slides and 2 blocks labeled as [id number] along with the outside pathology report. The materials originate from [facility], [address] [place] [address]. All materials are returned to the referring institution, along with a copy of our final report. 2018 4:39 PM [facility] Disclaimer The performance characteristics of all immunohistochemical and indirect immunofluorescence stains (if any) cited in this report were determined by the Histopathology Laboratory of [facility]. Some of these tests were [...] attending (teaching) pathologist. 2018 4:39 PM CDT [facility] Embedded Images 2018 4:39 PM CDT [facility] Pathology/Cytology SPECIMEN FROM [...] - PATHOLOGY/CYTO LOGY ORDERABLES Performing Organization Address City/State/[facility] Co de Phone Number [facility] [address] [phone] * FLOW CYTOMETRY BONE MARROW (09/14/2018 9:35 AM CDT) Case Report Flow Cytometry Case: [id number] Authorizing Provider: Tegan Payton MD Collected: 09/14/2018 09:35 AM Pathologist: Ju Mcneal MD Received: 09/14/2018 04:15 PM Specimen: Bone Marrow 09/15/2018 9:15 AM CDT [facility] Final Diagnosis Bone marrow, flow cytometric immunophenotypic analysis: - No evidence of non-Hodgkin lymphoma or high grade myeloid neoplasm. - See interpretation. 09/15/2018 9:15 AM CDT [facility] Flow Cytometry Interpretation [...] flow cytometry specimen is reviewed for quality cloth tester purposes. In summary, the bone marrow specimen shows no evidence of a non-Hodgkin lymphoma or high grade myeloid neoplasm. Correlation with additional clinical information and the concurrent bone marrow biopsy specimen is required. KR 09/15/2018 9:15 AM [facility] Flow Cytometry Results Differential Result Comment Flow Cell Count /uL [id number] Total Viability % 100.0 Lymphocytes % 13 Dim CD45 Region % 4 Monocytes % 10 Granulocytes % 70 09/15/2018 9:15 AM [facility] Reason for test Hodgkin lymphoma 201.90 09/15/2018 9:15 AM [facility] Client Specimen ID # [id number] 09/15/2018 9:15 AM [facility] Number of markers 10 were performed. A Flow CD3 A Flow CD10 A Flow CD20 A Flow CD23 A Flow CD5 A Flow CD19 A Flow CD34 A Flow CD45 A [place]+CD19+ A Lambda+CD19+ 09/15/2018 9:15 AM [facility] Disclaimer Test performed at [facility], [address] [place] [address], [address]. *The established laboratory minimum viability is 70%. [...] high complexity clinical testing. 09/15/2018 9:15 AM [facility] Embedded Images 9 9:15 AM [facility] Pathology/Cytolo gy BONE MARROW SPECIMEN / Unknown 09/14/2018 9:35 AM CDT 09/14/2018 4:15 PM CDT Tegan Payton MD LAB - PATHOLOGY/CYTO LOGY ORDERABLES [facility] [address] [phone] * PATHOLOGY TISSUE (08/27/2018 8:00 AM CDT) Case Report Surgical Pathology Report Case: [id number] Authorizing Provider: Tegan Payton MD Collected: 08/27/2018 08:00 AM Pathologist: Ju Mcneal MD Received: 09/14/2018 03:40 PM Specimen: Lymph Node Biopsy, [id number] 09/14/2018 4:15 PM CDT [facility] Final Diagnosis Lymph node, right neck, needle core biopsy ([facility] [id number], 08/27/2018): - Classical Hodgkin lymphoma. - See description. 09/14/2018 4:15 PM CDT [facility] Microscopic Description and [...] is required. KR 09/14/2018 4:15 PM CDT [facility] Clinical History Cervical lymphadenopathy. 09/14/2018 4:15 PM [facility] Materials Received Received are 16 slides labeled as [id number] along with the outside pathology report. The materials were interpreted at [address] [address] and are sent from [facility], [place] [address]. All materials are returned to the referring institution, along with a copy of our final report. 09/14/2018 4:15 PM [facility] Disclaimer The performance characteristics of all immunohistochemical and indirect immunofluorescence stains (if any) cited in this report were determined by the Histopathology Laboratory of [facility]. Some of these tests were [...] the attending (teaching) pathologist. 09/14/2018 4:15 PM [facility] Embedded Images 09/14/2018 4:15 PM [facility] Pathology/Cytolo gy BIOPSY OF LYMPH NODE / Unknown 08/27/2018 8:00 AM CDT 09/14/2018 3:40 PM CDT Tegan Payton MD LAB - PATHOLOGY/CYTO LOGY ORDERABLES Performing Organization Address City/State/[facility] Co de Phone Number [facility] [address] [phone] Care Teams Jewel Corner Brushing Machine Operator Relationship Specialty Start Date End Date Mervin Hawk MD [address] [place] [phone] PCP - General 11/04/18
--- OUTSIDE RECORDS SUMMARY | 2024-06-07 13:46 | XMS_ITS | Encounter Summary ---
Author Organization [facility] Address [address] [place] [address] [place] [address] Care Team Providers Care Cane Weigher Helper Name Role Phone Mervin Hawk MD Primary Care Provider [phone] Encounter Details Date Type Department Care Team (Late st Contact Info) Description 09/01/2019 Lab Requisition [facility] [address] [place] [address] Artem Thao MD Social History Tobacco Use [...] Not detected, Invalid 09/01/2019 6:41 PM CDT [facility] Microbiology SPECIMEN FROM NASOPHARYNGEAL STRUCTURE / Unknown Collection / Unknown 08/31/2019 2:03 PM CDT 09/01/2019 11:24 AM CDT Narrative [facility] - 09/01/2019 6:41 PM CDT This Real Time RT-PCR assay was developed and its performance characteristics determined by [facility]. This test has been [...] Artem Thao MD LAB - MICROBIOLOGY ORDERABLES [facility] [address] [place], [address] [phone] documented in this encounter Visit Diagnoses Not on filedocumented in this encounter Additional Health Concerns Infection Onset Date Last Indicated Resolved Time COVID-19 Under Investigation 08/31/2019 08/31/2019 09/01/2019 6:41 PM CDT documented as of this encounter Care Teams Cane Weigher Helper Relationship Specialty Start Date End Date Mervin Hawk MD [address] [place] [phone] PCP - General 11/04/18 documented as of this encounter
--- OUTSIDE RECORDS SUMMARY | 2024-06-07 13:46 | XMS_ITS | Clinical Summary ---
Author Organization [facility] Address [address] [place] [phone] Phone Care Team Providers Care Slackman Name Role Phone Baldev Espinal MD Unavailable [phone] Vu Beebe MD Unavailable [phone] Luis Eduardo Balderas MD Primary Care Provider [phone] Allergies Active Allergy Reactions Criticality Noted Date [...] g by mouth 2 times daily. Active [place]-3 Fatty Acids (fish oil) 1200 MG Capsule [...] Other-comment Father MVA, intoxicat ed as per [facility] note dated 09/13/2001 Cervical Cancer Maternal Grandmother at 39 from the cancer. Heart Disease Maternal Grandmother Hypertension Mother No Known Problems Sister Relation Name Status Comments Brother Alive Father Maternal Grandmother Mother Alive Sister Alive Social History Tobacco Use Types Packs/Day Years Used Date Smoking Tobacco: Every Day Cigarettes 1 37.7 Started: 09/25/1986 Smokeless Tobacco: Former Snuff, Chew [...] 1:00 PM CDT Office Visit [facility] [address] [place] [address] Vu Beebe MD [address] [place] [address] Discharge Disposition: Discharged to home or Selfcare [...] this topic Medical Devices Explanted Type Area Wincher Device Identifier Shelf Expiration Date Model / Serial / Lot Port Powerport Clearvue Isp Implantable W/8fr Folyurethane Catheter - [id number] Implanted:Qty: 1 on 10/02/2018 by Jaden Castillo MD at [facility] Explanted:Qty: 1 on 09/02/2019 by Jadne [facility]illo MD at [facility] IMPLANT [employer] 08/22/2019 [id number] / [id number] / [id number] Procedures Procedure Name Priority Date/Time Associated Diagnosis [...] Brady Rice M.D. AG: SOUTH Report ID: [id number] Reading Location: [id number] Procedure Note Brady Rice MD - 01/15/2019 [...] 4:11 PM - Electronically signed by Brady Riec M.D. AG: SOUTH Report ID: [id number] Reading Location: [id number] IMPRESSION: Examination is limited by motion. 1. [...] MEDICAID [place] MEDICARE C [employer] Care Teams Slackman Relationship Specialty Start Date End Date Luis Eduardo Balderas MD [address] [place] [address] PCP - General Internal Medicine 05/24/22 Baldev Espinal MD Consulting Physician Radiation Oncology 10/06/18 Vu Beebe MD [address] [place] [address] Consulting Physician Medical Oncology 10/01/19
--- OUTSIDE RECORDS SUMMARY | 2024-06-07 13:47 | XMS_ITS ---
Author Organization [facility] Address [address] [place] [phone] Phone Care Team Providers Care Men'S Leather Dress Belt Maker Name Role Phone Baldev Espinal MD Unavailable [phone] Vu Beebe MD Unavailable [phone] Luis Eduardo Balderas MD Primary Care Provider [phone] Active Problems Problem Noted Date Diagnosed Date [...]
--- OUTSIDE RECORDS SUMMARY | 2024-06-07 13:47 | XMS_ITS | Encounter Summary ---
Author Organization [facility] Address [address] [place] [address] [place] [address] Care Team Providers Care Sharepoint Solutions Architect Name Role Phone Mervin Hawk MD Primary Care Provider [phone] Encounter Details Date Type Department Care Team (Late st Contact Info) Description 09/14/2018 Lab Requisition [facility] [address] [place] [address] Tegan Payton MD [address] [place], [place] [id number] Social History Tobacco Use Types Packs/Day Years [...] CDT) Case Report Surgical Pathology Report Case: [id number] Authorizing Provider: Tegan Payton MD Collected: 08/27/2018 08:00 AM Pathologist: Ju Mcneal MD Received: 09/14/2018 03:40 PM Specimen: Lymph Node Biopsy, [id number] 09/14/2018 4:15 PM CDT [facility] Final Diagnosis Lymph node, right neck, needle core biopsy ([facility] [id number], 08/27/2018): - Classical Hodgkin lymphoma. - See description. 09/14/2018 4:15 PM [facility] Microscopic Description and Comment Review [...] correlation is required. KR 09/14/2018 4:15 PM [facility] Clinical History Cervical lymphadenopathy. 09/14/2018 4:15 PM [facility] Materials Received Received are 16 slides labeled as [id number] along with the outside pathology report. The [place] [address] and are sent from [facility], [place] [address]. All materials are returned to the referring institution, along with a copy of our final report. 09/14/2018 4:15 PM [facility] Disclaimer The performance characteristics of all immunohistochemical and indirect immunofluorescence stains (if any) cited in this report were determined by the Histopathology Laboratory of [facility]. Some of these tests were developed by [...] LAB Embedded Images 09/14/2018 4:15 PM CDT [facility] Pathology/Cytolo gy BIOPSY OF LYMPH NODE / Unknown 08/27/2018 8:00 AM CDT 09/14/2018 3:40 PM CDT Tegan Payton MD LAB - PATHOLOGY/CYTO LOGY ORDERABLES Performing Organization Address City/State/[facility] Co de Phone Number [facility] [address] [phone] documented in this encounter Visit Diagnoses Not on filedocumented in this encounter Additional Health Concerns Infection Onset Date Last Indicated Resolved Time COVID-19 Under Investigation 08/31/2019 08/31/2019 09/01/2019 6:41 PM CDT documented as of this encounter Care Teams Sharepoint Solutions Architect Relationship Specialty Start Date End Date Mervin Hawk MD [address] [place] [address] PCP - General 11/04/18 documented as of this encounter
--- OUTSIDE RECORDS SUMMARY | 2024-06-07 13:47 | XMS_ITS | Continuity of Care Document ---
Author Organization [facility] Address [address] [phone] Phone Care Team Providers Care Local Area Network Systems Adminstrator Name Role Phone Mervin Hawk MD Unavailable [...] Active Procedures Procedure Date DOMICIL/R-HOME VISIT EST [facility] OFFICE/OUTPATIENT VISIT, [facility] Advance Directives Directive Yes / No Effective Date File Name No Information Encounters Encounter Description Practice Location Reason(s) For Visit Diagnoses Date Provider Providers Copied on Encounter [facility], [address] [place] [address], [facility], tel:[phone] [facility] No Information 2 Carine Jeffries. [address] [place] [address], [facility], . tel: [phone] [facility], [address] [place] [address], [facility], tel:[phone] [facility] No Information 2 Carine Jeffries. [address] [place] [address], [address], [place]. tel: [phone] [facility], [address] [place] [address], [facility], tel:[phone] [facility] No Information 2 Escobar Gary. [address] [place] [address], [facility], [place]. tel: [phone] DOMICIL/R-HO ME VISIT EST PAT [facility], [address] [place] [address], [facility], [place] tel:[phone] [facility] HPI (chief complaint) Mixed hyperlipidemiaType 2 diabetes mellitus without complicationsEpilep sy, unspecified, not intractable, without status epilepticusSchizoaf fective disorder, bipolar typeMajor depressive disorder, recurrent, unspecified 2 Carine Jeffries. [address] [place] [address], [facility], [place]. tel: [phone] [facility], [address] [place] [address], [facility], [place] tel:[phone] [place] [address] No Information 2 Carine Jeffries. [address] [place] [address], [facility], [place]. tel: [phone] [facility], [address] [place] [address], [facility], [place] tel:[phone] [place] [address] No Information 2 Carine Jeffries. [address] [place] [address], [facility], [place]. tel: [phone] [facility], [address] [place] [address], [facility], [place] tel: [phone] [place] [address] No Information 2 Carine Jeffries. [address] [place] [address], [facility], [place]. tel: [phone] [facility], [address] [place] [address], [facility], [place] tel: [phone] [place] [address] No Information 2 Carine Jeffries. [address] [place] [address], [facility], [place]. tel: [phone] [facility], [address] [place] [address], [facility], [place] tel: [phone] [place] [address] No Information 2 Carine Jeffries. [address] [place] [address], [address], [place]. tel: [phone] [facility], [address] [place] [address], [facility], tel: [phone] [place] [address] No Information 2 Carine Jeffries. [address] [place] [address], [facility], [place]. tel: [phone] [facility], [address] [place] [address], [facility], tel: [phone] [place] [address] No Information 2 Carine Jeffries. [address] [place] [address], [facility], [place]. tel: [phone] [facility], [address] [place] [address], [facility], [place] tel: [phone] [place] [address] 6 Month Follow Up at [facility] (chief complaint) Type 2 diabetes mellitus without complicationsEpilep sy, unspecified, not intractable, without status epilepticusMixed hyperlipidemiaGastr o-esophageal reflux disease without esophagitisGout, unspecifiedMajor depressive disorder, recurrent, unspecified 2 Carine Jeffries. [address] [place] [address], [facility], [place]. tel: [phone] OFFICE/OUTPA TIENT VISIT, [facility], [address] [place] [address], [facility], tel: [phone] [facility] est. care (chief complaint) Type 2 diabetes mellitus without complicationsBody mass index [BMI] 32.0-32.9, adult 1 Carine Jeffries. [address] [place] [address], [facility], [place]. tel: [phone] [facility], [address] [place] [address], [facility], [place] tel: [phone] [facility] No Information 1 Carine Jeffries. [address] [place] [address], [facility], [place]. tel: [phone] Family History Family Member Type Diagnosis Age [...] gistry Payers Payer name Insurance type Covered constitution party ID Authormarena tameka(s) SARA [facility] [id number] Social History Type Description Quantity Date Captured Comments Alcohol Use Details Unknown Caffeine Use Details Unknown Tobacco Use Status Smoking Status No Information Sex Male Chief Complaint And Reason For Visit No Information Reason For Referral Reason For Referral No Information Plan Of Treatment Date Type Action Status Future Order: Lab Order A1C ([id number]), Se nt on: Sent Future Order: Lab Order CMP ([id number]), Se nt on: Sent Future Order: Lab Order CBC W/ D iff ([id number]), Sent on: Sent Future Order: Lab Order LIPID PA ADRIANA ([id number]), Sent on: Sent Future Order: Lab Order VITAMIN D (25) ([id number]), Sent on: Sent Future Order: Lab Order URIC ACID ([id number]), Sent on: Sent History Of Present Illness Encounter Date Complaint History Of Prese nt Illness HPI No new concerns or complaints from patient or staff.Eating and sleeping well.Medication list reviewed 6 Month Follow Up at [facility] Pt. is doing well.No new concerns or complaints by the patient or staffEating well. Sleeping well. est. care Patient is here today to get established with my new practice. He is brought in by his mother, this is the first time of had a chance to meet her. He also brings in his blood sugar log from the [facility].He is here today to discuss his blood [...]
--- OUTSIDE RECORDS SUMMARY | 2024-06-07 13:47 | XMS_ITS | Encounter Summary ---
Author Organization [facility] Address [facility] [facility] [place] [address] Care Team Providers Care Director Compensation Name Role Phone Mervin Hawk MD Primary Care Provider [phone] Encounter Details Date Type Department Care Team (Late st Contact Info) Description 09/14/2018 Lab Requisition [facility] Care Pathology Lab [address] [place] [address] Tegan Payton MD [address] [place], [place] [id number] Hodgkin lymphoma (HCC) Social History Tobacco Use [...] AM CDT) Case Report Flow Cytometry Case: [id number] Authorizing Provider: Tegan Payton MD Collected: 09/14/2018 [...] the flow cytometry specimen is reviewed for head of quality purposes. In summary, the bone marrow specimen shows no evidence of a non-Hodgkin lymphoma or high grade myeloid neoplasm. Correlation with additional clinical information and the concurrent bone marrow biopsy specimen is required. KR 09/15/2018 9:15 AM [facility] PATHOLOGY LAB Flow Cytometry Results Differential Result Comment Flow Cell Count /uL [id number] Total Viability % 100.0 Lymphocytes % 13 Dim CD45 Region % 4 Monocytes % 10 Granulocytes % 70 09/15/2018 9:15 AM [facility] PATH[facility] Reason for test Hodgkin lymphoma 201.90 09/15/2018 9:15 AM [facility] PATHOLOG[facility] Client Specimen ID # [id number] 09/15/2018 9:15 AM [facility] PATH[facility] Number of markers 10 were performed. A Flow CD3 A Flow CD10 A Flow CD20 A Flow CD23 A Flow CD5 A Flow CD19 A Flow CD34 A Flow CD45 A [place]+CD19+ A Lambda+CD19+ 09/15/2018 9:15 AM [facility] PATHOLOGY LAB Disclaimer Test performed at [facility], [address] [place] [address], [address]. *The established laboratory minimum viability is 70%. [...] complexity clinical testing. 09/15/2018 9:15 AM CDT [facility] PATHOLOGY LAB Embedded Images 9:15 AM CDT [facility] PATHOLOGY LAB Pathology/Cytolo gy BONE MARROW SPECIMEN / Unknown 09/14/2018 9:35 AM CDT 09/14/2018 4:15 PM CDT Tegan Payton MD LAB - PATHOLOGY/CYTO LOGY ORDERABLES Performing Organization Address City/State/[facility] Co de Phone Number [facility] PATHOLOGY LAB [address] [phone] documented in this encounter Visit Diagnoses Diagnosis Hodgkin lymphoma (HCC) Hodgkin's disease, unspecified documented in this encounter Additional Health Concerns Infection Onset Date Last Indicated Resolved Time COVID-19 Under Investigation 08/31/2019 08/31/2019 09/01/2019 6:41 PM CDT documented as of this encounter Care Teams Director Compensation Relationship Specialty Start Date End Date Mervin Hawk MD [address] [place] [address] PCP - General 11/04/18 documented as of this encounter
--- OUTSIDE RECORDS SUMMARY | 2024-06-07 13:47 | XMS_ITS | Clinical Summary ---
Author Organization [facility] [employer] Address [address] [place] [address] Care Team Providers Care Pharmacy Billing Adjudicator Name Role Phone Mervin Hawk MD Primary Care Provider [phone] Source Comments [facility] [employer],non-[facility] Affiliates and Associated Physician Practices is amultiple site organization consisting of ambulatory clinics and hospital sitesin [place], [place], [place] and [place]. This disclosure is being madepursuant to the Care Everywhere program and may not contain all information available regarding this patient. Last updated 17.[facility] [employer] Allergies Active Allergy Reactions Criticality Noted Date [...] to complete this topic MENINGOCOCCAL (Group B) VACC INE SHARED DECISION-MAKING Aged Out No longer eligibl e based on patient's age to complete this topic MENINGOCOCCAL GROUPS A/C/Y/W VACCINE Aged Out No longer eligible b ased on patient's age to complete this topic Insurance Payer Benefit Plan / Group Subscriber ID Effective Dates Phone Address Type MEDICARE MEDICARE PART A AND B [id number] Effective for all dates [address] [place] [address] Medicare MEDICARE WPS MEDICARE PART B [id number] 01/08/2022-Pr esent [address] [address] [place] [address] Medicare MEDICAID - OUT OF STATE MEDICAID - [facility] [id number] 01/08/2022-Pr esent [address] [address] [place] [address] Medicaid MEDICARE WPS MEDICARE PART B [id number] 01/08/2022-Pr esent [address] [address] [place] [address] Medicare MEDICAID - OUT OF STATE [place] - [place] [facility] [id number] 01/08/2022-Pr esent [address] [address] [place] [address] Medicaid MEDICARE WPS MEDICARE PART B [id number] 01/08/2022-Pr esent [address] [address] [place] [address] Medicare MEDICAID - OUT OF STATE [place] [facility] [place] [id number] 01/08/2022-Pr esent [address] [address] [place] [address] Medicaid MEDICARE WPS MEDICARE PART B [id number] 01/08/2022-Pr esent [address] [address] [place] [address] Medicare MEDICAID - OUT OF STATE [place] [facility] [place] [id number] 01/08/2022-Pr esent [address] [address] [place] [address] Medicaid MEDICARE WPS MEDICARE PART B [id number] 01/08/2022-Pr esent [address] [address] [place] [address] Medicare MEDICAID - OUT OF STATE MED[place] - [place] [facility] [place] [id number] 01/08/2022-Pr esent [address] [address] [place] [address] Medicaid MEDICARE WPS MEDICARE PART B [id number] 01/08/2022-Pr esent [address] [address] [place] [address] Medicare MEDICAID - OUT OF [place] - [place] [facility] [id number] 01/08/2022-Pr esent [address] [address] [place] [address] Medicaid MEDICARE WPS MEDICARE PART B [id number] 01/08/2022-Pr esent [address] [address] [place] [address] Medicare MEDICAID - OUT OF STATE [place] - [place] [facility] [id number] 01/08/2022-Pr esent [address] [address] [place] [address] Medicaid MEDICARE WPS MEDICARE PART B [id number] 09/21/1993-Pres ent [address] [address] [place] [address] Medicare MEDICAID - OUT OF STATE MEDICAID [facility] PUBLIC AID [id number] Effective for all dates [address] [address] [place] [address] Medicaid MEDICARE WPS MEDICARE PART B [id number] 09/21/1993-Pres ent [address] [address] [place] [address] Medicare MEDICAID - OUT OF STATE MEDICAID [facility] PUBLIC AID [id number] Effective for all dates [address] [address] [place] [address] Medicaid MEDICARE WPS MEDICARE PART B [id number] 09/21/1993-Pres ent [address] [address] [place] [address] Medicare MEDICAID - OUT OF STATE MEDICAID [facility] PUBLIC AID [id number] Effective for all dates [address] [address] [place] [address] Medicaid MEDICARE WPS MEDICARE PART B [id number] 09/21/1993-Pres ent [address] [address] [place] [address] Medicare MEDICAID - OUT OF [facility] MEDICAID [facility] PUBLIC AID [id number] Effective for all dates [address] [address] [place] [address] Medicaid MEDICARE WPS MEDICARE PART B [id number] 09/21/1993-Pres ent [address] [address] [place] [address] Medicare MEDICAID - OUT OF STATE MEDICAID [facility] PUBLIC AID [id number] Effective for all dates [address] [address] [place] [address] Medicaid MEDICARE WPS MEDICARE PART B [id number] 09/21/1993-Pres ent [address] [address] [place] [address] Medicare MEDICAID - OUT OF STATE MEDICAID [facility] PUBLIC AID [id number] Effective for all dates [address] [address] [place] [address] Medicaid MEDICARE WPS MEDICARE PART B [id number] 09/21/1993-Pres ent [address] [address] [place] [address] Medicare MEDICAID - OUT OF STATE MEDICAID [facility] PUBLIC AID [id number] Effective for all dates [address] [address] [place] [address] Medicaid MEDICARE WPS MEDICARE PART B [id number] 09/21/1993-Pres ent [address] [address] [place] [address] Medicare MEDICAID - OUT OF STATE MEDICAID - [place] PUBLIC AID [id number] Effective for all dates [address] [address] [place] [address] Medicaid MEDICARE WPS MEDICARE PART B [id number] 09/21/1993-Pres ent [address] [address] [place] [address] Medicare MEDICAID - OUT OF STATE MEDICAID [facility] PUBLIC AID [id number] Effective for all dates [address] [address] [place] [address] Medicaid MEDICARE WPS MEDICARE PART B [id number] 09/21/1993-Pres ent [address] [address] [place] [address] Medicare MEDICAID - OUT OF STATE MEDICAID [facility] PUBLIC AID [id number] Effective for all dates [address] [address] [place] [address] Medicaid MEDICARE WPS MEDICARE PART B [id number] 09/21/1993-Pres ent [address] [address] [place] [address] Medicare MEDICAID - OUT OF STATE MEDICAID [facility] PUBLIC AID [id number] Effective for all dates [address] [address] [place] [address] Medicaid MEDICARE WPS MEDICARE PART B [id number] 09/21/1993-Pres ent [address] [address] [place] [address] Medicare MEDICAID - OUT OF STATE MEDICAID [facility] PUBLIC AID [id number] Effective for all dates [address] [address] [place] [address] Medicaid MEDICARE WPS MEDICARE PART B [id number] 09/21/1993-Pres ent [address] [address] [place] [address] Medicare MEDICAID - OUT OF STATE MEDICAID [facility] PUBLIC AID [id number] Effective for all dates [address] [address] [place] [address] Medicaid MEDICARE WPS MEDICARE PART B [id number] 09/21/1993-Pres ent [address] [address] [place] [address] Medicare MEDICAID - OUT OF STATE MEDICAID [facility] PUBLIC AID [id number] Effective for all dates [address] [address] [place] [address] Medicaid MEDICARE WPS MEDICARE PART B [id number] 09/21/1993-Pres ent [address] [address] [place] [address] Medicare MEDICAID - OUT OF STATE MEDICAID [facility] PUBLIC AID [id number] Effective for all dates [address] [address] [place] [address] Medicaid MEDICARE WPS MEDICARE PART B [id number] 09/21/1993-Pres ent [address] [address] [place] [address] Medicare MEDICAID - OUT OF STATE MEDICAID [facility] PUBLIC AID [id number] Effective for all dates [address] [address] [place] [address] Medicaid MEDICARE WPS MEDICARE PART B [id number] 09/21/1993-Pres ent [address] [address] [place] [address] Medicare MEDICAID - OUT OF STATE MEDICAID [facility] PUBLIC AID [id number] Effective for all dates [address] [address] [place] [address] Medicaid MEDICARE WPS MEDICARE PART B [id number] 09/21/1993-Pres ent [address] [address] [place] [address] Medicare MEDICAID - OUT OF STATE MEDICAID [facility] PUBLIC AID [id number] Effective for all dates [address] [address] [place] [address] Medicaid MEDICARE WPS MEDICARE PART B [id number] 09/21/1993-Pres ent [address] [address] [place] [address] Medicare MEDICAID - OUT OF STATE MEDICAID [facility] PUBLIC AID [id number] Effective for all dates [address] [address] [place] [address] Medicaid MEDICARE WPS MEDICARE PART B [id number] 09/21/1993-Pres ent [address] [address] [place] [address] Medicare MEDICAID - OUT OF STATE MEDICAID [facility] PUBLIC AID [id number] Effective for all dates [address] [address] [place] [address] Medicaid MEDICARE WPS MEDICARE PART B [id number] 09/21/1993-Pres ent [address] [address] [place] [address] Medicare MEDICAID - OUT OF STATE MEDICAID [facility] PUBLIC AID [id number] Effective for all dates [address] [address] [place] [address] Medicaid MEDICARE WPS MEDICARE PART B [id number] 09/21/1993-Pres ent [address] [address] [place] [address] Medicare MEDICAID - OUT OF STATE MEDICAID [facility] PUBLIC [facility]ID [id number] Effective for all dates [address] [address] [place] [address] Medicaid MEDICARE WPS MEDICARE PART B [id number] 09/21/1993-Pres ent [address] [address] [place] [address] Medicare MEDICAID - OUT OF STATE MEDICAID [facility] PUBLIC AID [id number] Effective for all dates [address] [address] [place] [address] Medicaid MEDICARE WPS MEDICARE PART B [id number] 09/21/1993-Pres ent [address] [address] [place] [address] Medicare MEDICAID - OUT OF STATE MEDICAID [facility] PUBLIC AID [id number] Effective for all dates [address] [address] [place] [address] Medicaid MEDICARE WPS MEDICARE PART B [id number] 09/21/1993-Pres ent [address] [address] [place] [address] Medicare MEDICAID - OUT OF STATE MEDICAID [facility] PUBLIC AID [id number] Effective for all dates [address] [address] [place] [address] Medicaid MEDICARE WPS MEDICARE PART B [id number] 09/21/1993-Pres ent [address] [address] [place] [address] Medicare MEDICAID - OUT OF STATE MEDICAID [facility] PUBLIC AID [id number] Effective for all dates [address] [address] [place] [address] Medicaid MEDICARE WPS MEDICARE PART B [id number] 09/21/1993-Pres ent [address] [address] [place] [address] Medicare MEDICAID - OUT OF STATE MEDICAID [facility] PUBLIC AID [id number] Effective for all dates [address] [address] [place] [address] Medicaid MEDICARE WPS MEDICARE PART B [id number] 09/21/1993-Pres ent [address] [address] [place] [address] Medicare MEDICAID - OUT OF STATE MEDICAID [facility] PUBLIC AID [id number] Effective for all dates [address] [address] [place] [address] Medicaid MEDICARE WPS MEDICARE PART B [id number] 09/21/1993-Pres ent [address] [address] [place] [address] Medicare MEDICAID - OUT OF STATE MEDICAID [facility] PUBLIC AID [id number] Effective for all dates [address] [address] [place] [address] Medicaid MEDICARE WPS MEDICARE PART B [id number] 09/21/1993-Pres ent [address] [address] [place] [address] Medicare MEDICAID - OUT OF STATE MEDICAID [facility] PUBLIC AID [id number] Effective for all dates [address] [address] [place] [address] Medicaid MEDICARE WPS MEDICARE PART B [id number] 09/21/1993-Pres ent [address] [address] [place] [address] Medicare MEDICAID - OUT OF STATE MEDICAID [facility] PUBLIC AID [id number] Effective for all dates [address] [address] [place] [address] Medicaid MEDICARE WPS MEDICARE PART B [id number] 09/21/1993-Pres ent [address] [address] [place] [address] Medicare MEDICAID - OUT OF [facility] MEDICAID [facility] PUBLIC AID [id number] Effective for all dates [address] [address] [place] [address] Medicaid MEDICARE WPS MEDICARE PART B [id number] 09/21/1993-Pres ent [address] [address] [place] [address] Medicare MEDICAID - OUT OF STATE MEDICAID [facility] PUBLIC AID [id number] Effective for all dates [address] [address] [place] [address] Medicaid MEDICARE WPS MEDICARE PART B [id number] 09/21/1993-Pres ent [address] [address] [place] [address] Medicare MEDICAID - OUT OF [facility] MEDICAID [facility] PUBLIC AID [id number] Effective for all dates [address] [address] [place] [address] Medicaid MEDICARE WPS MEDICARE PART B [id number] 09/21/1993-Pres ent [address] [address] [place] [address] Medicare MEDICAID - OUT OF STATE MEDICAID [facility] PUBLIC AID [id number] Effective for all dates [address] [address] [place] [address] Medicaid MEDICARE MEDICARE PART A AND B [id number] 09/21/1993-Pres ent [address] [place] [address] Medicare MEDICARE WPS MEDICARE PART B [id number] 09/21/1993-Pres ent [address] [address] [place] [address] Medicare MEDICAID - OUT OF STATE MEDICAID [facility] PUBLIC AID [id number] Effective for all dates [address] [address] [place] [address] Medicaid MEDICARE WPS MEDICARE PART B [id number] 09/21/1993-Pres ent [address] [address] [place] [address] Medicare MEDICAID - OUT OF STATE MEDICAID [facility] PUBLIC AID [id number] Effective for all dates [address] [address] [place] [address] Medicaid MEDICARE WPS MEDICARE PART B [id number] 09/21/1993-Pres ent [address] [address] [place] [address] Medicare MEDICARE WPS MEDICARE PART B [id number] 09/21/1993-Pres ent [address] [address] [place] [address] Medicare MEDICARE WPS MEDICARE PART B [id number] 09/21/1993-Pres ent [address] [address] [place] [address] Medicare MEDICARE WPS MEDICARE PART B [id number] 09/21/1993-Pres ent [address] [address] [place] [address] Medicare MEDICARE WPS MEDICARE PART B [id number] 09/21/1993-Pres ent [address] [address] [place] [address] Medicare MEDICARE WPS MEDICARE PART B [id number] 09/21/1993-Pres ent [address] [address] [place] [address] Medicare MEDICARE WPS MEDICARE PART B [id number] 09/21/1993-Pres ent [address] [address] [place] [address] Medicare [place] [id number] Effective for all dates [address] [address] [place] [address] Medicaid [place] Care Teams Pharmacy Billing Adjudicator Relationship Specialty Start Date End Date Mervin Hawk MD [address] [place] [phone] PCP - General 11/04/18
--- OUTSIDE RECORDS SUMMARY | 2024-06-07 13:47 | XMS_ITS | Encounter Summary ---
Author Organization [facility] Address [address] [place] [address] [place] [address] Care Team Providers Care Glove Cleaner Name Role Phone Mervin Hawk MD Primary Care Provider [phone] Encounter Details Date Type Department Care Team (Late st Contact Info) Description 09/15/2018 Lab Requisition [facility] [address] [place] [address] Tegan Payton MD [address] [place], [place] [id number] Social History Tobacco Use Types Packs/Day Years [...] Report Bone Marrow Patholog y Report Case: [id number] Authorizing Provider: Tegan Payton MD Collected: 09/15/2018 [...] - See microscopic description. 2018 4:39 PM [facility] Comment In summary, the bone marrow is normocellular for age with maturing trilineage hematopoiesis and no evidence of lymphoma or high grade myeloid neoplasm. Clinical correlation is recommended. KR 2018 4:39 PM [facility] Peripheral Smear Description CBC Data: [...] normal. Platelet morphology: normal. 2018 4:39 PM [facility] Bone Marrow Aspirate Differential count (200 cells): 63% maturing myeloid precursors, 26.5% erythroid progenitors, 2% monocytes, 5.5% eosinophils, and 3% lymphocytes. Specimen quality: adequate. Spicules: present. Trilineage Hematopoiesis: present. Myeloid:Erythroid ratio: 2.7:1. Myeloid Maturation: normal. Erythroid Maturation: normal. Megakaryocyte morphology: normal nuclear lobation. Storage iron (by special stain): decreased. Sideroblastic iron (by special stain): Decreased. No ring sideroblasts. 2018 4:39 PM [facility] Bone Marrow Core Biopsy and [...] performed on the core biopsy in the [facility] Department of Pathology, with appropriately reactive control and is negative for tumor cells. 2018 4:39 PM [facility] Flow Cytometry Summary Concurrent flow cytometric analysis ([id number]) demonstrates no evidence of non-Hodgkin lymphoma or high grade myeloid neoplasm. 2018 4:39 PM [facility] Clinical History 47 year old man with recent diagnosis of classical Hodgkin lymphoma. Staging bone marrow biopsy. 2018 4:39 PM [facility] Materials Received Received are 19 slides and 2 blocks labeled as [id number] along with the outside pathology report. The materials originate from [facility], [address] [place] [address]. All materials are returned to the referring institution, along with a copy of our final report. 2018 4:39 PM [facility] Disclaimer The performance characteristics of all immunohistochemical and indirect immunofluorescence stains (if any) cited in this report were determined by the Histopathology Laboratory of [facility]. Some of these tests were developed [...] the attending (teaching) pathologist. 2018 4:39 PM [facility] Embedded Images 2018 4:39 PM [facility] Pathology/Cytology SPECIMEN FROM BONE MARROW [...] - PATHOLOGY/CYTO LOGY ORDERABLES Performing Organization Address City/State/[facility] Co de Phone Number [facility] [address] [phone] documented in this encounter Visit Diagnoses Not on filedocumented in this encounter Additional Health Concerns Infection Onset Date Last Indicated Resolved Time COVID-19 Under Investigation 08/31/2019 08/31/2019 09/01/2019 6:41 PM CDT documented as of this encounter Care Teams Glove Cleaner Relationship Specialty Start Date End Date Mervin Hawk MD [address] [place] [address] PCP - General 11/04/18 documented as of this encounter
--- OUTSIDE RECORDS SUMMARY | 2024-06-07 13:47 | XMS_ITS | Referral Summary ---
Author Organization [facility] Address [address] [place] [address] Care Team Providers Care Configuration Specialist Name Role Phone Mervin Hawk MD Primary Care Provider [phone] Source Comments [facility]ian hospital Affiliates and Associated Physician Practices is amultiple site organization consisting of ambulatory clinics and hospital sitesin [place], [place], [place] and [place]. This disclosure is being madepursuant to the Care Everywhere program and may not contain all information available regarding this patient. Last updated 17.[facility] Allergies Active Allergy Reactions Criticality Noted Date [...] Type MEDICARE MEDICARE PART A AND B [id number] Effective for all dates [address] [place] [address] Medicare MEDICARE WPS MEDICARE PART B [id number] 01/08/2022-Pr esent [address] [address] [place] [address] Medicare MEDICAID - OUT OF STATE MED[place] - [place] PUBLIC AID [id number] 01/08/2022-Pr esent [address] [address] [place] [address] Medicaid MEDICARE WPS MEDICARE PART B [id number] 01/08/2022-Pr esent [address] [address] [place] [address] Medicare MEDICAID - OUT OF [facility] MEDICAID [facility] PUBLIC AID [id number] 01/08/2022-Pr esent [address] [address] [place] [address] Medicaid MEDICARE WPS MEDICARE PART B [id number] 01/08/2022-Pr esent [address] [address] [place] [address] Medicare MEDICAID - OUT OF [facility] MEDICAID [facility] PUBLIC AID [id number] 01/08/2022-Pr esent [address] [address] [place] [address] Medicaid MEDICARE WPS MEDICARE PART B [id number] 01/08/2022-Pr esent [address] [address] [place] [address] Medicare MEDICAID - OUT OF STATE MEDICAID [facility] PUBLIC AID [id number] 01/08/2022-Pr esent [address] [address] [place] [address] Medicaid MEDICARE WPS MEDICARE PART B [id number] 01/08/2022-Pr esent [address] [address] [place] [address] Medicare MEDICAID - OUT OF STATE MEDICAID [facility] PUBLIC AID [id number] 01/08/2022-Pr esent [address] [address] [place] [address] Medicaid MEDICARE WPS MEDICARE PART B [id number] 01/08/2022-Pr esent [address] [address] [place] [address] Medicare MEDICAID - OUT OF STATE MEDICAID [facility] PUBLIC AID [id number] 01/08/2022-Pr esent [address] [address] [place] [address] Medicaid MEDICARE WPS MEDICARE PART B [id number] 01/08/2022-Pr esent [address] [address] [place] [address] Medicare MEDICAID - OUT OF STATE MEDICAID [facility] PUBLIC AID [id number] 01/08/2022-Pr esent [address] [address] [place] [address] Medicaid MEDICARE WPS MEDICARE PART B [id number] 09/21/1993-Pres ent [address] [address] [place] [address] Medicare MEDICAID - OUT OF STATE MEDICAID [facility] PUBLIC AID [id number] Effective for all dates [address] [address] [place] [address] Medicaid MEDICARE WPS MEDICARE PART B [id number] 09/21/1993-Pres ent [address] [address] [place] [address] Medicare MEDICAID - OUT OF STATE MEDICAID [facility] PUBLIC AID [id number] Effective for all dates [address] [address] [place] [address] Medicaid MEDICARE WPS MEDICARE PART B [id number] 09/21/1993-Pres ent [address] [address] [place] [address] Medicare MEDICAID - OUT OF STATE MEDICAID [facility] PUBLIC AID [id number] Effective for all dates [address] [address] [place] [address] Medicaid MEDICARE WPS MEDICARE PART B [id number] 09/21/1993-Pres ent [address] [address] [place] [address] Medicare MEDICAID - OUT OF STATE MEDICAID [facility] PUBLIC AID [id number] Effective for all dates [address] [address] [place] [address] Medicaid MEDICARE WPS MEDICARE PART B [id number] 09/21/1993-Pres ent [address] [address] [place] [address] Medicare MEDICAID - OUT OF STATE MEDICAID [facility] PUBLIC AID [id number] Effective for all dates [address] [address] [place] [address] Medicaid MEDICARE WPS MEDICARE PART B [id number] 09/21/1993-Pres ent [address] [address] [place] [address] Medicare MEDICAID - OUT OF STATE MEDICAID [facility] PUBLIC AID [id number] Effective for all dates [address] [address] [place] [address] Medicaid MEDICARE WPS MEDICARE PART B [id number] 09/21/1993-Pres ent [address] [address] [place] [address] Medicare MEDICAID - OUT OF STATE MEDICAID [facility] PUBLIC AID [id number] Effective for all dates [address] [address] [place] [address] Medicaid MEDICARE WPS MEDICARE PART B [id number] 09/21/1993-Pres ent [address] [address] [place] [address] Medicare MEDICAID - OUT OF STATE MEDICAID [facility] PUBLIC AID [id number] Effective for all dates [address] [address] [place] [address] Medicaid MEDICARE WPS MEDICARE PART B [id number] 09/21/1993-Pres ent [address] [address] [place] [address] Medicare MEDICAID - OUT OF STATE MEDICAID [facility] PUBLIC AID [id number] Effective for all dates [address] [address] [place] [address] Medicaid MEDICARE WPS MEDICARE PART B [id number] 09/21/1993-Pres ent [address] [address] [place] [address] Medicare MEDICAID - OUT OF STATE MEDICAID [facility] PUBLIC AID [id number] Effective for all dates [address] [address] [place] [address] Medicaid MEDICARE WPS MEDICARE PART B [id number] 09/21/1993-Pres ent [address] [address] [place] [address] Medicare MEDICAID - OUT OF STATE MEDICAID [facility] PUBLIC AID [id number] Effective for all dates [address] [address] [place] [address] Medicaid MEDICARE WPS MEDICARE PART B [id number] 09/21/1993-Pres ent [address] [address] [place] [address] Medicare MEDICAID - OUT OF STATE MEDICAID [facility] PUBLIC AID [id number] Effective for all dates [address] [address] [place] [address] Medicaid MEDICARE WPS MEDICARE PART B [id number] 09/21/1993-Pres ent [address] [address] [place] [address] Medicare MEDICAID - OUT OF STATE MEDICAID [facility] PUBLIC AID [id number] Effective for all dates [address] [address] [place] [address] Medicaid MEDICARE WPS MEDICARE PART B [id number] 09/21/1993-Pres ent [address] [address] [place] [address] Medicare MEDICAID - OUT OF STATE MEDICAID [facility] PUBLIC AID [id number] Effective for all dates [address] [address] [place] [address] Medicaid MEDICARE WPS MEDICARE PART B [id number] 09/21/1993-Pres ent [address] [address] [place] [address] Medicare MEDICAID - OUT OF STATE MEDICAID [facility] PUBLIC AID [id number] Effective for all dates [address] [address] [place] [address] Medicaid MEDICARE WPS MEDICARE PART B [id number] 09/21/1993-Pres ent [address] [address] [place] [address] Medicare MEDICAID - OUT OF STATE MEDICAID [facility] PUBLIC AID [id number] Effective for all dates [address] [address] [place] [address] Medicaid MEDICARE WPS MEDICARE PART B [id number] 09/21/1993-Pres ent [address] [address] [place] [address] Medicare MEDICAID - OUT OF STATE MEDICAID [facility] PUBLIC AID [id number] Effective for all dates [address] [address] [place] [address] Medicaid MEDICARE WPS MEDICARE PART B [id number] 09/21/1993-Pres ent [address] [address] [place] [address] Medicare MEDICAID - OUT OF STATE MEDICAID [facility] PUBLIC AID [id number] Effective for all dates [address] [address] [place] [address] Medicaid MEDICARE WPS MEDICARE PART B [id number] 09/21/1993-Pres ent [address] [address] [place] [address] Medicare MEDICAID - OUT OF STATE MEDICAID [facility] PUBLIC AID [id number] Effective for all dates [address] [address] [place] [address] Medicaid MEDICARE WPS MEDICARE PART B [id number] 09/21/1993-Pres ent [address] [address] [place] [address] Medicare MEDICAID - OUT OF STATE MEDICAID [facility] PUBLIC AID [id number] Effective for all dates [address] [address] [place] [address] Medicaid MEDICARE WPS MEDICARE PART B [id number] 09/21/1993-Pres ent [address] [address] [place] [address] Medicare MEDICAID - OUT OF STATE MEDICAID [facility] PUBLIC AID [id number] Effective for all dates [address] [address] [place] [address] Medicaid MEDICARE WPS MEDICARE PART B [id number] 09/21/1993-Pres ent [address] [address] [place] [address] Medicare MEDICAID - OUT OF STATE MEDICAID [facility] PUBLIC AID [id number] Effective for all dates [address] [address] [place] [address] Medicaid MEDICARE WPS MEDICARE PART B [id number] 09/21/1993-Pres ent [address] [address] [place] [address] Medicare MEDICAID - OUT OF STATE MEDICAID [facility] PUBLIC AID [id number] Effective for all dates [address] [address] [place] [address] Medicaid MEDICARE WPS MEDICARE PART B [id number] 09/21/1993-Pres ent [address] [address] [place] [address] Medicare MEDICAID - OUT OF STATE MEDICAID [facility] PUBLIC AID [id number] Effective for all dates [address] [address] [place] [address] Medicaid MEDICARE WPS MEDICARE PART B [id number] 09/21/1993-Pres ent [address] [address] [place] [address] Medicare MEDICAID - OUT OF STATE MEDICAID [facility] PUBLIC AID [id number] Effective for all dates [address] [address] [place] [address] Medicaid MEDICARE WPS MEDICARE PART B [id number] 09/21/1993-Pres ent [address] [address] [place] [address] Medicare MEDICAID - OUT OF STATE MEDICAID [facility] PUBLIC AID [id number] Effective for all dates [address] [address] [place] [address] Medicaid MEDICARE WPS MEDICARE PART B [id number] 09/21/1993-Pres ent [address] [address] [place] [address] Medicare MEDICAID - OUT OF STATE MEDICAID [facility] PUBLIC AID [id number] Effective for all dates [address] [address] [place] [address] Medicaid MEDICARE WPS MEDICARE PART B [id number] 09/21/1993-Pres ent [address] [address] [place] [address] Medicare MEDICAID - OUT OF STATE MEDICAID [facility] PUBLIC AID [id number] Effective for all dates [address] [address] [place] [address] Medicaid MEDICARE WPS MEDICARE PART B [id number] 09/21/1993-Pres ent [address] [address] [place] [address] Medicare MEDICAID - OUT OF STATE MEDICAID [facility] PUBLIC AID [id number] Effective for all dates [address] [address] [place] [address] Medicaid MEDICARE WPS MEDICARE PART B [id number] 09/21/1993-Pres ent [address] [address] [place] [address] Medicare MEDICAID - OUT OF STATE MEDICAID [facility] PUBLIC AID [id number] Effective for all dates [address] [address] [place] [address] Medicaid MEDICARE WPS MEDICARE PART B [id number] 09/21/1993-Pres ent [address] [address] [place] [address] Medicare MEDICAID - OUT OF STATE MEDICAID [facility] PUBLIC AID [id number] Effective for all dates [address] [address] [place] [address] Medicaid MEDICARE WPS MEDICARE PART B [id number] 09/21/1993-Pres ent [address] [address] [place] [address] Medicare MEDICAID - OUT OF [facility] MEDICAID [facility] PUBLIC AID [id number] Effective for all dates [address] [address] [place] [address] Medicaid MEDICARE WPS MEDICARE PART B [id number] 09/21/1993-Pres ent [address] [address] [place] [address] Medicare MEDICAID - OUT OF STATE MEDICAID [facility] PUBLIC AID [id number] Effective for all dates [address] [address] [place] [address] Medicaid MEDICARE WPS MEDICARE PART B [id number] 09/21/1993-Pres ent [address] [address] [place] [address] Medicare MEDICAID - OUT OF [facility] MEDICAID [facility] PUBLIC AID [id number] Effective for all dates [address] [address] [place] [address] Medicaid MEDICARE WPS MEDICARE PART B [id number] 09/21/1993-Pres ent [address] [address] [place] [address] Medicare MEDICAID - OUT OF STATE MEDICAID [facility] PUBLIC AID [id number] Effective for all dates [address] [address] [place] [address] Medicaid MEDICARE MEDICARE PART A AND B [id number] 09/21/1993-Pres ent [address] [place] [address] Medicare MEDICARE WPS MEDICARE PART B [id number] 09/21/1993-Pres ent [address] [address] [place] [address] Medicare MEDICAID - OUT OF STATE MEDICAID [facility] PUBLIC AID [id number] Effective for all dates [address] [address] [place] [address] Medicaid MEDICARE WPS MEDICARE PART B [id number] 09/21/1993-Pres ent [address] [address] [place] [address] Medicare MEDICAID - OUT OF [facility] MEDICAID - [place] PUBLIC AID [id number] Effective for all dates [address] [address] [place] [address] Medicaid MEDICARE WPS MEDICARE PART B [id number] 09/21/1993-Pres ent [address] [address] [place] [address] Medicare MEDICARE WPS MEDICARE PART B [id number] 09/21/1993-Pres ent [address] [address] [place] [address] Medicare MEDICARE WPS MEDICARE PART B [id number] 09/21/1993-Pres ent [address] [address] [place] [address] Medicare MEDICARE WPS MEDICARE PART B [id number] 09/21/1993-Pres ent [address] [address] [place] [address] Medicare MEDICARE WPS MEDICARE PART B [id number] 09/21/1993-Pres ent [address] [address] [place] [address] Medicare MEDICARE WPS MEDICARE PART B [id number] 09/21/1993-Pres ent [address] [address] [place] [address] Medicare MEDICARE WPS MEDICARE PART B [id number] 09/21/1993-Pres ent [address] [address] [place] [address] Medicare MEDICAID - [place] - [place] [id number] Effective for all dates [address] [address] [place] [address] Medicaid [place] Care Teams Configuration Specialist Relationship Specialty Start Date End Date Mervin Hawk MD [address] [place] [address] PCP - General 11/04/18
== END 2024-06-07 11:11 | disposition home or self-care (01) ==
LOC: CHSIMG 11:12
PROVIDERS: PCP Family Medicine; Visit Provider Family Medicine
DX: M25.562 Pain in left knee (principal)
CPT/HCPCS: 73562

== ENCOUNTER 2024-10-11 09:00 | Outpatient (CLI) | payer MEDICARE, MEDICAID, SELFPAY ==
--- NOTE | ~2024-10-11 | CT_ITS ---
EXAMINATION: CT lung screening DATE: 10/11/2024 09:18 INDICATION: Personal history of nicotine dependence TECHNIQUE: Computed tomography (CT) of the chest was performed without intravenous contrast. The dose -length product was 107.63 mGy-cm. Automated exposure control and iterative reconstruction technique were employed. COMPARISON: CT dated 01/10/2022 FINDINGS: There is a 6 mm left upper lobe nodule anteriorly, axial image 65. No focal airspace consol idation. There are a few additional scattered nodules measuring 2 mm or less. There is dependent atel ectasis. No focal pneumonia. No endobronchial lesion. No thoracic lymphadenopathy. Heart size normal. There is atherosclerosis of the aorta and coronary arteries. IMPRESSION: 1. Lung-RADS category 3: Probably benign. Further evaluation is recommended with noncontrast low-dose chest CT in 6 months. Reviewed, dictated and finalized at location A. IMPRESSION: 1. Lung-RADS category 3: Probably benign. Further evaluation is recommended wit h noncontrast low-dose chest CT in 6 months.
--- OUTSIDE RECORDS SUMMARY | 2024-10-11 09:06 | XMS_ITS | Clinical Summary ---
Author Organization [facility] Address [address] [place] [address] Care Team Providers Care Surface Mount Technology Operator Name Role Phone Mervin Hawk MD Primary Care Provider [phone] Source Comments [facility] Affiliates and Associated Physician Practices is amultiple site organization consisting of ambulatory clinics and hospital sitesin [place], [place], [place] and [place]. This disclosure is being madepursuant to the Care Everywhere program and may not contain all information available regarding this patient. Last updated 17.[facility] Allergies Active Allergy Reactions Criticality Noted Date [...] at Not on file Legal Sex Male 4:03 PM CDT Gender Identity Not on file [...] P M CDT Height 167.6 cm (5' 6) 11/04/2018 1:39 PM CDT Body Mass Index 31.54 11/04/2018 1:39 PM CDT Plan of Treatment Health Maintenance Due Date Last Done Comments COLOGUARD (AGES 45-75) - COLON CA SCREENING 1970 COLON MONITORING 1970 COLONOSCOPY [...] 50+ (1 of 2 - PCV) 1989 ZOSTER VACCINE (1 of 2) 2020 SCREENING FOR DIABETES 03/10/2022 9, 03/10/2019, 02/24/2019, Additional history exists COVID-19 VACCINE (2023- season) 2023 DEPRESSION SCREENING 03/24/2024 INFLUENZA VACCINE (#1) 2024 HIB VACCINE Aged Out No longer eligi ble based on patient's age to complete this topic HPV VACCINE Aged Out No longer eligi ble based on patient's age to complete this topic MENINGOCOCCAL (Group B) VACCINE SHARED DECISION-MAKING Aged Out No longer eligible based on patient's age to complete this topic MENINGOCOCCAL GROUPS A/C/Y/W VACCINE Aged Out No longer eligible based on patient's age to complete this topic Insurance [place]ICA[place] - [place] MEDIC[place] MEDICARE * Guarantor: ZEENAT,TATE W Account Type Relation to Patient Date of Phone Billing Address Personal/Family 1970 ([facility]) [address] [place] [address] * Guarantor: ZEENATBOLES Account Type Relation to Patient Date of Phone Billing Address Personal/Family 1970 MEDICARE MEDICARE MEDICARE MEDICARE Member Subscriber Plan / [facility] Name:Deni Eppersone Member ID:[id number] Relation to Subscriber:Self Name:ELVI EPPERSON W Subscriber ID:[id number] Payer ID:Not on file Group ID:Not on file Type:Medicare Address: [place] [address] MEDICARE MEDICARE MEDICARE Member Subscriber Plan / Payer ( fective 1993-Present) Name:Zeenat Boles Member ID:[id number] Relation to Subscriber:Self Name:ELVI EPPERSON W Subscriber ID:[id number] Payer ID:Not on file Group ID:Not on file Type:Medicare Address: [place] [id number] MEDICARE MEDICAID - OUT OF STATE MEDICARE MEDICAID - OUT OF STATE MEDICARE Member Subscriber Plan / Payer (Ef fective 1993-Present) Name:ZeenatDenie Member ID:[id number] Relation to Subscriber:Self Name:ELVI EPPERSON W Subscriber ID:[id number] Payer ID:Not on file Group ID:Not on file Type:Medicare Address: [address] MEDICAID - OUT OF STATE MEDICARE Member Subscriber Plan / Payer (Ef fective 1993-Present) Name:Elvi Epperson Member ID:[id number] Relation to Subscriber:Self Name:ELVI EPPERSON W Subscriber ID:[id number] Payer ID:Not on file Group ID:Not on file Type:Medicare Address: [address] MEDICAID - OUT OF [facility] MEDICARE Member Subscriber Plan / Payer (Ef fective 1993-Present) Name:Deni Eppersone Member ID:[id number] Relation to Subscriber:Self Name:ELVI EPPERSON W Subscriber ID:[id number] Payer ID:Not on file Group ID:Not on file Type:Medicare Address: [address] MEDICAID - OUT OF STATE MEDICARE MEDICAID - OUT OF STATE MEDICARE MEDICAID - OUT OF [facility] MEDICARE Member Subscriber Plan / Payer (Ef fective 1993-Present) Name:ZeenatDenie Member ID:[id number] Relation to Subscriber:Self Name:ELVI EPPERSON W Subscriber ID:[id number] Payer ID:Not on file Group ID:Not on file Type:Medicare Address: [address] MEDICAID - OUT OF STATE MEDICARE MEDICAID - OUT OF [facility] MEDICARE MEDICAID - OUT OF STATE MEDICARE MEDICAID - OUT OF STATE MEDICARE MEDICAID - OUT OF [facility] MEDICARE MEDICAID - OUT OF STATE MEDICARE MEDICAID - OUT OF STATE MEDICARE MEDICAID - OUT OF [facility] MEDICARE MEDICAID - OUT OF STATE MEDICARE MEDICAID - OUT OF STATE MEDICARE MEDICAID - OUT OF STATE MEDICARE MEDICAID - OUT OF STATE MEDICARE MEDICAID - OUT OF [facility] MEDICARE Member Subscriber Plan / Payer (Ef fective 1993-Present) Name:Deni Eppersone Member ID:[id number] Relation to Subscriber:Self Name:ELVI EPPERSON W Subscriber ID:[id number] Payer ID:Not on file Group ID:Not on file Type:Medicare Address: [address] MEDICAID - OUT OF STATE MEDICARE Member Subscriber Plan / Payer (Ef fective 1993-Present) Name:Elvi Epperson Member ID:[id number] Relation to Subscriber:Self Name:ELVI EPPERSON W Subscriber ID:[id number] Payer ID:Not on file Group ID:Not on file Type:Medicare Address: [place] [address] MEDICAID - OUT OF [facility] MEDICARE MEDICAID - OUT OF STATE MEDICARE Member Subscriber Plan / Payer (Ef fective 1993-Present) Name:Zeenat, Boles Member ID:[id number] Relation to Subscriber:Self Name:ELVI EPPERSON W Subscriber ID:[id number] Payer ID:Not on file Group ID:Not on file Type:Medicare Address: [address] MEDICAID - OUT OF STATE MEDICARE Member Subscriber Plan / Payer (Ef fective 1993-Present) Name:Elvi Epperson Member ID:[id number] Relation to Subscriber:Self Name:ELVI EPPERSON W Subscriber ID:[id number] Payer ID:Not on file Group ID:Not on file Type:Medicare Address: [place] [id number] MEDICAID - OUT OF STATE MEDICARE Member Subscriber Plan / Payer (Ef fective 1993-Present) Name:Zeenta, Obles Member ID:[id number] Relation to Subscriber:Self Name:ELVI EPPERSON W Subscriber ID:[id number] Payer ID:Not on file Group ID:Not on file Type:Medicare Address: [address] MEDICAID - OUT OF STATE MEDICARE Member Subscriber Plan / Payer (Ef fective 1993-Present) Name:Elvi Epperson Member ID:[id number] Relation to Subscriber:Self Name:ELVI EPPERSON W Subscriber ID:[id number] Payer ID:Not on file Group ID:Not on file Type:Medicare Address: [place] [address] MEDICAID - OUT OF STATE MEDICARE Member Subscriber Plan / Payer (Ef fective 1993-Present) Name:ZeenatDenie Member ID:[id number] Relation to Subscriber:Self Name:ELVI EPPERSON W Subscriber ID:[id number] Payer ID:Not on file Group ID:Not on file Type:Medicare Address: [address] MEDICAID - OUT OF STATE MEDICARE MEDICAID - OUT OF STATE MEDICARE MEDICAID - OUT OF [facility] MEDICARE MEDICAID - OUT OF STATE MEDICARE Member Subscriber Plan / Payer (Ef fective 1993-Present) Name:ZeenatElvi black Member ID:[id number] Relation to Subscriber:Self Name:ELVI EPPERSON W Subscriber ID:[id number] Payer ID:Not on file Group ID:Not on file Type:Medicare Address: [place] [address] MEDICAID - OUT OF STATE MEDICARE Member Subscriber Plan / Payer (Ef fective 1993-Present) Name:Elvi Epperson Member ID:[id number] Relation to Subscriber:Self Name:ELVI EPPERSON W Subscriber ID:[id number] Payer ID:Not on file Group ID:Not on file Type:Medicare Address: [address] MEDICAID - OUT OF [facility] MEDICARE Member Subscriber Plan / Payer (Ef fective 1993-Present) Name:Deni Eppersone Member ID:[id number] Relation to Subscriber:Self Name:ELVI EPPERSON W Subscriber ID:[id number] Payer ID:Not on file Group ID:Not on file Type:Medicare Address: [address] MEDICAID - OUT OF STATE MEDICARE MEDICAID - OUT OF STATE MEDICARE MEDICAID - OUT OF [facility] MEDICARE Member Subscriber Plan / Payer (Ef fective 1993-Present) Name:ZeenatDenie Member ID:[id number] Relation to Subscriber:Self Name:ELVI EPPEROSN W Subscriber ID:[id number] Payer ID:Not on file Group ID:Not on file Type:Medicare Address: [place] [address] MEDICAID - OUT OF STATE MEDICARE MEDICAID - OUT OF [facility] MEDICARE MEDICAID - OUT OF STATE MEDICARE MEDICAID - OUT OF STATE MEDICARE Member Subscriber Plan / Payer ( fective 2022-Present) Name:Elvi Epperson Member ID:[id number] Relation to Subscriber:Self Name:ELVI EPPERSON W Subscriber ID:[id number] Payer ID:Not on file Group ID:Not on file Type:Medicare Address: [place] [id number] MEDICAID - OUT OF STATE MEDICARE MEDICAID - OUT OF STATE MEDICARE MEDICAID - OUT OF STATE MEDICARE MEDICAID - OUT OF STATE Member Subscriber Plan / [facility]Present) Name:Elvi Epperson Relation to Subscriber:Self Name:ELVI EPPERSON W Payer ID:Not on file Group ID:Not on file Type:Medicaid Address: [place] [address] Care Teams Surface Mount Technology Operator Relationship Specialty Start Date End Date Mervin Hawk MD [address] [place] [phone] PCP - General 11/04/18
--- OUTSIDE RECORDS SUMMARY | 2024-10-11 09:06 | XMS_ITS ---
Author Organization [facility] Address [address] [place] [address] Phone Care Team Providers Care Railroad Engineer Name Role Phone Baldev Espinal MD Unavailable [phone] Vu Beebe MD Unavailable [phone] Luis Eduardo Balderas MD Primary Care Provider [phone] Active Problems Problem Noted Date Diagnosed Date [...]
--- OUTSIDE RECORDS SUMMARY | 2024-10-11 09:06 | XMS_ITS | Encounter Summary ---
Author Organization [facility] Address [address] [place], [place] [address] [address] Care Team Providers Care Lens Edge Grinder Machine Name Role Phone Mervin Hawk MD Primary Care Provider [phone] Encounter Details Date Type Department Care Team (Late st Contact Info) Description 09/14/2018 Lab Requisition [facility] [address] [place] [address] Tegan Payton MD [address] [place], [place] [id number] Social History Tobacco Use Types Packs/Day Years [...] CDT) Case Report Surgical Pathology Report Case: [id number] Authorizing Provider: Tegan Payton MD Collected: 08/27/2018 08:00 AM Pathologist: Ju Mcneal MD Received: 09/14/2018 03:40 PM Specimen: Lymph Node Biopsy, [id number] 09/14/2018 4:15 PM CDT [facility] Final Diagnosis Lymph node, right neck, needle core biopsy (OSC [id number], 08/27/2018): - Classical Hodgkin lymphoma. - See description. 09/14/2018 4:15 PM [facility] at 1610 CDT Microscopic Description and Comment Review of the [...] correlation is required. KR 09/14/2018 4:15 PM [facility] Clinical History Cervical lymphadenopathy. 09/14/2018 4:15 PM [facility] Materials Received Received are 16 slides labeled as [id number] along with the outside pathology report. The materials were interpreted at [facility], [address] [place] [address] and are sent from [facility], [place] [address]. All materials are returned to the referring institution, along with a copy of our final report. 09/14/2018 4:15 PM [facility] Disclaimer The performance characteristics of all immunohistochemical and indirect immunofluorescence stains (if any) cited in this report were determined by the Histopathology Laboratory of [facility]. Some of these tests were developed [...] attending (teaching) pathologist. 09/14/2018 4:15 PM CDT [facility] Embedded Images 09/14/2018 4:15 PM CDT [facility] Pathology/Cytolo gy BIOPSY OF LYMPH NODE / Unknown 08/27/2018 8:00 AM CDT 09/14/2018 3:40 PM CDT Tegan Payton MD LAB - PATHOLOGY/CYTOLOGY ORDERA BLES Final Result [facility] [address] [phone] documented in this encounter Visit Diagnoses Not on filedocumented in this encounter Additional Health Concerns Infection Onset Date Last Indicated Resolved Time COVID-19 Under Investigation 08/31/2019 08/31/2019 09/01/2019 6:41 PM CDT documented as of this encounter Care Teams Lens Edge Grinder Machine Relationship Specialty Start Date End Date Mervin Hawk MD [address] [place] [address] PCP - General 11/04/18 documented as of this encounter
--- OUTSIDE RECORDS SUMMARY | 2024-10-11 09:06 | XMS_ITS | Encounter Summary ---
Author Organization [facility] Address [address] [place] [address] [place] [address] Care Team Providers Care Court Reporter Name Role Phone Mervin Hawk MD Primary Care Provider [phone] Encounter Details Date Type Department Care Team (Late st Contact Info) Description 09/01/2019 Lab Requisition [facility] [address] [place] [address] Artem Thao MD Social History Tobacco Use [...] Not detected, Invalid 09/01/2019 6:41 PM CDT [facility]CRO[facility] Microbiology SPECIMEN FROM NASOPHARYNGEAL STRUCTURE / Unknown Collection / Unknown 08/31/2019 2:03 PM CDT 09/01/2019 11:24 AM CDT Narrative [facility]CRO[facility] - 09/01/2019 6:41 PM CDT This Real Time RT-PCR assay was developed and its performance characteristics determined by [facility]. This test has been [...] sooner. Artem Thao MD LAB - MICROBIOLOGY ORDERABL ES Final Result [facility] [address] [place] [address], [facility] [phone] documented in this encounter Visit Diagnoses Not on filedocumented in this encounter Additional Health Concerns Infection Onset Date Last Indicated Resolved Time COVID-19 Under Investigation 08/31/2019 08/31/2019 09/01/2019 6:41 PM CDT documented as of this encounter Care Teams Court Reporter Relationship Specialty Start Date End Date Mervin Hawk MD [address] [place] [address] PCP - General 11/04/18 documented as of this encounter
--- OUTSIDE RECORDS SUMMARY | 2024-10-11 09:06 | XMS_ITS | Clinical Summary ---
Author Organization [facility] Address [address] [place] [phone] Phone Care Team Providers Care Casting Agent Name Role Phone Baldev Espinal MD Unavailable [phone] Vu Beebe MD Unavailable [phone] Luis Eduardo Balderas MD Primary Care Provider [phone] Allergies Active Allergy Reactions Criticality Noted Date [...] g by mouth 2 times daily. Active [place]-3 Fatty Acids (fish oil) 1200 MG Capsule [...] Other-comment Father MVA, intoxicat ed as per [facility] note dated 09/13/2001 Cervical Cancer Maternal Grandmother at 39 from the cancer. Heart Disease Maternal Grandmother Hypertension Mother No Known Problems Sister Relation Name Status Comments Brother Alive Father Maternal Grandmother Mother Alive Sister Alive Social History Tobacco Use Types Packs/Day Years Used Date Smoking Tobacco: Every Day Cigarettes 1 38 Started: 09/25/1986 Smokeless Tobacco: Former Snuff, Chew [...] P M CDT Height 160 cm (5' 3) 10/14/2023 1:27 PM CDT Body Mass Index 28.45 10/14/2023 1:27 PM CDT Plan of Treatment Upcoming Encounters Date Type Department Care Team (Late st Contact Info) Description 10/25/2024 1:40 PM CDT [facility] [address] [place] [address] Vu Beebe MD [address] [place] [address] Discharge Disposition: Discharged to home or Selfcare Health Maintenance Due Date Last Done Comments Hepatitis C Virus (HCV) Screening 1970 TdaP Immunization 1970 Hepatitis B Immunization (1 of 3 - 19+ 3-dose series) 1989 Pneumococcal Immunization (50+ years) (1 of 2 - PCV) 1989 Zoster Immunization (1 of 2) 1989 Cologuard 09/17/2015 Immunochemical Fecal Occult Blood 09/17/2015 Lung Cancer Screening 2020 01/15/2019 SARS-COV-2 Immunization ( season) 2023 10/19/2021, 03/26/2021, 04/27/2020, Additional history exists Influenza Immunization (#1) 11/22/202412/23, 01/02/2022, 01/10/2021, Additional history exists Colonoscopy 02/20/2033 02/20/2023 Colorectal Cancer Screening 02/20/2033 Respiratory Syncytial Virus (RSV) Immunization (Adult) (1 - 1-dose 75+ series) 2045 Human Papillomavirus (HPV) Immunization Aged Out No longer eligible based on patient's age to complete this topic Meningococcal Immunization (ACWY) Aged Out No longer eligible based on patient's age to complete this topic Rotavirus Immunization Aged Out No lo nger eligible based on patient's age to complete this topic Medical Devices Explanted Type Area Weigher Bulker Device Identifier Shelf Expiration Date Model / Serial / Lot Port Powerport Clearvue Isp Implantable W/8fr Folyurethane Catheter - [id number] Implanted:Qty: 1 on 10/02/2018 by Jaden Castillo MD at [facility] Explanted:Qty: 1 on 09/02/2019 by Jaden Castillo MD at [facility] IMPLANT [employer] 08/22/2019 [id number] / [id number] / [id number] Procedures Procedure Name Priority Date/Time Associated Diagnosis [...] signed by Brady Rice M.D. AG: SOUTH [place]: 01/15/2019 4:11 PM Report ID: [id number] Reading Location: [id number] Procedure Note Brady Rice MD - 01/15/2019 [...] Electronically signed by Brady Rice M.D. AG: AG Report ID: [id number] Reading Location: [id number] IMPRESSION: Examination is limited by motion. 1. [...] MEDICAID [place] MEDICARE C [employer] Care Teams Casting Agent Relationship Specialty Start Date End Date Luis Eduardo Balderas MD [address] [place] [address] PCP - General Internal Medicine 05/24/22 Baldev Espinal MD Consulting Physician Radiation Oncology 10/06/18 Vu Beebe MD [address] [place] [address] Consulting Physician Medical Oncology 10/01/19
--- OUTSIDE RECORDS SUMMARY | 2024-10-11 09:06 | XMS_ITS | Patient Health Record ---
Author Organization [facility] Address [address] [facility] [address] [place] [address] Care Team Providers Care Spring Repairer Helper Hand Name Role Phone Meche Lester Unavailable [phone] Reason For Referral No Information Medications Medication SIG (Take, Route, Frequency, Duration) Notes Start Date End Date Status Benztropine Mesylate 0.5 MG Oral Active Divalproex Sodium ER 250 MG Oral Active risperiDONE 4 MG Oral Act livia Januvia 100 MG Oral Activ e glipiZIDE 10 MG Oral Acti ve Eliquis 5 MG Oral Active PARoxetine HCl 20 MG Oral Active metFORMIN HCl 1000 MG Oral Active Allopurinol 100 MG Oral A ctive Famotidine 20 MG Oral Act livia clonazePAM 0.5 MG Oral Ac tive Plan Of Treatment No Information Insurance Providers Payer Name Payer Address Payer Phone Subscriber Number Group Number Insured Name Patient Relationship to Insured Coverage Start Date Coverage End Date Medicare-I l Medicare [address] [facility] [phone] [id number] ELVI EPPERSON Self - patient is the insured
--- OUTSIDE RECORDS SUMMARY | 2024-10-11 09:06 | XMS_ITS | Encounter Summary ---
Author Organization [facility] Address [facility] [place] [address] Care Team Providers Care Unloader Operator Name Role Phone Mervin Hawk MD Primary Care Provider [phone] Encounter Details Date Type Department Care Team (Late st Contact Info) Description 09/15/2018 Lab Requisition [facility] [address] [place] [address] Tegan Payton MD [address] [place], [place] [id number] Social History Tobacco Use Types Packs/Day Years [...] Report Bone Marrow Patholog y Report Case: [id number] Authorizing Provider: Tegan Payton MD Collected: 09/15/2018 08:00 AM Pathologist: Ju Mcneal MD Received: 09/15/2018 04:13 PM Specimens: A) - Bone Marrow Core, BN19-30 B) - Bone Marrow Core, BN19-30 C) - Blood Peripheral, BN19-30 D) - Bone Marrow Aspirate, BN19-30 2018 4:39 PM [facility] Final Diagnosis Bone marrow, aspirate, clot section, and core biopsy: - Normocellular marrow with maturing trilineage hematopoiesis. - Decreased storage iron. - No evidence of lymphoma or high grade myeloid neoplasm. - See microscopic description. Peripheral blood smear: - Macrocytic anemia. - See microscopic description. 2018 4:39 PM [facility] at 1639 CDT AP Comment In summary, the bone marrow is normocellular for age with maturing trilineage hematopoiesis and no evidence of lymphoma or high grade myeloid neoplasm. Clinical correlation is recommended. KR 2018 4:39 PM [facility] Peripheral Smear Description CBC [...] normal. Platelet morphology: normal. 2018 4:39 PM [facility] Bone Marrow Aspirate Differential [...] Decreased. No ring sideroblasts. 2018 4:39 PM [facility] Bone Marrow Core Biopsy [...] performed on the core biopsy in the [facility] Department of Pathology, with appropriately reactive control and is negative for tumor cells. 2018 4:39 PM [facility] Flow Cytometry Summary Concurrent flow cytometric analysis ([id number]) demonstrates no evidence of non-Hodgkin lymphoma or high grade myeloid neoplasm. 2018 4:39 PM [facility] Clinical History 47 year old man with recent diagnosis of classical Hodgkin lymphoma. Staging bone marrow biopsy. 2018 4:39 PM [facility] Materials Received Received are 19 slides and 2 blocks labeled as [id number] along with the outside pathology report. The materials originate from [facility], [address] [place] [address]. All materials are returned to the referring institution, along with a copy of our final report. 2018 4:39 PM [facility] Disclaimer The performance characteristics of all immunohistochemical and indirect immunofluorescence stains (if any) cited in this report were determined by the Histopathology Laboratory of [facility]. Some of these tests were [...] the attending (teaching) pathologist. 2018 4:39 PM [facility] Embedded Images 2018 4:39 PM [facility] Pathology/Cytology SPECIMEN FROM BONE [...] LAB - PATHOLOGY/CYTOLOGY ORDERA BLES Final Result [facility] [address] [phone] documented in this encounter Visit Diagnoses Not on filedocumented in this encounter Additional Health Concerns Infection Onset Date Last Indicated Resolved Time COVID-19 Under Investigation 08/31/2019 08/31/2019 09/01/2019 6:41 PM CDT documented as of this encounter Care Teams Unloader Operator Relationship Specialty Start Date End Date Mervin Hawk MD [address] [place] [address] PCP - General 11/04/18 documented as of this encounter
--- OUTSIDE RECORDS SUMMARY | 2024-10-11 09:06 | XMS_ITS | Encounter Summary ---
Author Organization [facility] Address [facility] [place] [address] Care Team Providers Care Carpet Finishing Supervisor Name Role Phone Mervin Hawk MD Primary Care Provider [phone] Encounter Details Date Type Department Care Team (Late st Contact Info) Description 09/14/2018 Lab Requisition [facility] [address] [place] [address] Tegan Payton MD [address] [place], [place] [id number] Hodgkin lymphoma Social History Tobacco Use Types Packs/Day Years [...] AM CDT) Case Report Flow Cytometry Case: [id number] Authorizing Provider: Tegan Payton MD Collected: 09/14/2018 09:35 AM Pathologist: Ju Mcneal MD Received: 09/14/2018 04:15 PM Specimen: Bone Marrow 09/15/2018 9:15 AM CDT [facility] Final Diagnosis Bone marrow, flow cytometric immunophenotypic analysis: - No evidence of non-Hodgkin lymphoma or high grade myeloid neoplasm. - See interpretation. 09/15/2018 9:15 AM [facility] PATH[facility] at 0915 CDT Flow Cytometry Interpretation The bone marrow specimen [...] flow cytometry specimen is reviewed for quality compliance consultant purposes. In summary, the bone marrow specimen shows no evidence of a non-Hodgkin lymphoma or high grade myeloid neoplasm. Correlation with additional clinical information and the concurrent bone marrow biopsy specimen is required. KR 09/15/2018 9:15 AM [facility] Flow Cytometry Results Differential Result Comment Flow Cell Count /uL [id number] Total Viability % 100.0 Lymphocytes % 13 [...] A Flow CD34 A Flow CD45 A Gray+CD19+ A Lambda+CD19+ 09/15/2018 9:15 AM [facility] Disclaimer Test performed at [facility], [address] [place] [address], [address]. *The established laboratory minimum viability is 70%. [...] complexity clinical testing. 09/15/2018 9:15 AM CDT [facility] Embedded Images 9:15 AM CDT [facility] Pathology/Cytolo gy BONE MARROW SPECIMEN / Unknown 09/14/2018 9:35 AM CDT 09/14/2018 4:15 PM CDT Tegan Payton MD LAB - PATHOLOGY/CYTOLOGY ORDERA BLES Final Result Performing Organization Address City/State/[facility] Co de Phone Number [facility] [address] [phone] documented in this encounter Visit Diagnoses Diagnosis Hodgkin lymphoma (HCC) Hodgkin's disease, unspecified documented in this encounter Additional Health Concerns Infection Onset Date Last Indicated Resolved Time COVID-19 Under Investigation 08/31/2019 08/31/2019 09/01/2019 6:41 PM CDT documented as of this encounter Care Teams Carpet Finishing Supervisor Relationship Specialty Start Date End Date Mervin Hawk MD [address] [place] [address] PCP - General 11/04/18 documented as of this encounter
== END 2024-10-11 09:01 | disposition home or self-care (01) ==
LOC: CHSIMG 09:02
PROVIDERS: PCP Family Medicine; Visit Provider Family Medicine
DX: Z12.2 Encounter for screening for malignant neoplasm of respiratory organs (principal); Z87.891 Personal history of nicotine dependence
CPT/HCPCS: 71271